=== PATIENT | female | born 1950 | race Caucasian/White ===

== ENCOUNTER → 2016-05-26 | Outpatient (CLI) | payer MEDICARE ==
[~2016-05-26] MED LIST: ASPI81TA85 PO; CIPR500T3 PO; COLA100C PO; DULO1CAP3 PO; FERR325T3 PO; GLYB5TA PO; IMIT100T PO; LISI10TA4 PO; MELA1CAP2 PO; METF500T4 PO; MOTR200T44 PO; NEUR300C PO; NORCOTAB PO; PERC5TAB6 PO; PROP40TA PO; SIMV20TA2 PO; TYLE1TAB5 PO; VITA-130 PO; ZANA4TAB PO
--- NOTE | 2016-05-26 13:24 | REP ---
CHEST X-RAY: TWO VIEWS. HISTORY: Shortness of breath. COMPARISON: Chest x-ray August 13, 2015. FINDINGS: The lungs are well inflated and clear. The pleural angles are sharp. Heart size is normal. Pulmonary vasculature is not increased. No significant bony abnormality is seen. IMPRESSION: No active disease. Signed by Delmer Ariza MD 05/26/2016 01:26 P
== END ==
LOC: M RAD 09:15
PROVIDERS: ATTEND Student in an Organized Health Care Education/Training Program
DX: R06.02 Shortness of breath (principal)

== ENCOUNTER → 2016-06-26 | Outpatient (REF) | payer MEDICARE, OTHER ==
[~2016-06-26] MED LIST changes: +FLOM5CAP PO; +LOSA25TA8 PO
[2016-06-26 13:03] LABS: FERRITIN 8 NG/ML (8-252); PERCENT SATURATION 8.4 % (13.2-37.4); TOTAL IRON BINDING CAPACITY 466 UG/DL (250-450)
== END ==
LOC: M LAB REF 12:30
PROVIDERS: ATTEND Internal Medicine Medical Oncology
DX: D64.9 Anemia, unspecified (principal)
CPT/HCPCS: 82728; 83550; 86038; 86140; G0463

== ENCOUNTER → 2016-06-27 | Outpatient (REF) | payer MEDICARE ==
[~2016-06-27] MED LIST changes: -FLOM5CAP PO; -LOSA25TA8 PO
== END ==
LOC: M SFHCPLAZ 09:28
PROVIDERS: ATTEND Student in an Organized Health Care Education/Training Program
DX: M54.9 Dorsalgia, unspecified (principal)

== ENCOUNTER → 2016-06-30 | Outpatient (CLI) | payer OTHER, MEDICARE ==
--- NOTE | 2016-07-04 01:48 | ECWPNPC ---
PATIENT NAME: SANTIAGO INGRAM : 1950 GENDER: FEMALE VISIT DATE: 06/30/2016 DISCHARGE DATE: 06/30/16 0946 VISIT LOCKED DATE TIME: PHYSICIAN: NONI MEDINA RESOURCE: NONI MEDINA REASON FOR APPOINTMENT 1. HANDS HISTORY OF PRESENT ILLNESS HISTORY OF PRESENT ILLNESS: PAIN THE PATIENT DESCRIBES THE PAIN... FALL RISK SCREENING: SCREENING :NO FALLS IN THE PAST YEAR TODAY'S VISIT: NOTES: FOLLOWUP - BILATERAL HANDS: RATES PAIN TODAY 4/10. HANDS ARE VERY STIFF AT WRIST AND FINGER JOINTS. VERY LIMITED IN ACTIVITIES WHICH REQUIRE THE USE OF THE HANDS. CURRENT MEDICATIONS TAKING JANUMET 50-1000 MG TABLET 1 TABLET WITH MEALS ORALLY TWICE A DAY TAKING GLIPIZIDE 5 MG TABLET 1 TABLET ORALLY BID TAKING FERROUS SULFATE 325 (65 FE) MG TABLET 1 TABLET ORALLY ONCE DAILY TAKING LIPITOR 40 MG TABLET 1 TABLET ORALLY ONCE A DAY TAKING LOSARTAN POTASSIUM 25 MG TABLET DIRECTED ORALLY DAILY TAKING PROPRANOLOL HCL 40 MG CAPSULE EXTENDED RELEASE 24 HOUR 1 CAPSULE ORALLY ONCE A DAY TAKING IMITREX 100 MG TABLET 1 TABLET ORALLY ONCE DAILY NEEDED FOR MIGRAINES TAKING GLUCOSE BLOOD ACCHUCHEK STRIP TEST STRIPS IN VITRO FSBS DAILY TAKING TYLENOL PM EXTRA STRENGTH 500-25 MG TABLET 1 TABLET AT BEDTIME NEEDED ORALLY ONCE A DAY TAKING GABAPENTIN 800 MG TABLET 1 TABLET ORALLY THREE TIMES A DAY TAKING CYMBALTA 60 MG CAPSULE DELAYED RELEASE PARTICLES 1 CAPSULE ORALLY ONCE A DAY TAKING PROAIR HFA 108 (90 BASE) MCG/ACT AEROSOL SOLUTION 2 PUFFS NEEDED INHALATION QID PRN NOT-TAKING DOCUSATE SODIUM 100 MG CAPSULE 1 CAPSULE NEEDED ORALLY ONCE A DAY NOT-TAKING FLUCONAZOLE 150 MG TABLET 1 TABLET ORALLY ONE TIME (MAY REPEAT IN 72 HOURS IF SYMPTOMS NOT RESOLVED ) NOT-TAKING VITAMIN C 500 MG TABLET CHEWABLE 1 TABLET ORALLY ONCE A DAY NOT-TAKING LIDOCAINE 5 % OINTMENT 1 APPLICATION TO AFFECTED AREA NEEDED EXTERNALLY THREE TIMES A DAY MEDICATION LIST REVIEWED AND RECONCILED WITH THE PATIENT PAST MEDICAL HISTORY DIABETES MELLITUS HYPERTENSION HYPERLIPIDEMIA DEPRESSION MIGRAINE HEADACHE, OCCASIONAL COMPLEX REGIONAL PAIN SYNDROME (CRPS) HX RENAL CALCULI WITH LITHOTRIPSY POSTMENOPAUSE HISTORY OF VITREOUS DETACHMENT DIFFICULTY WITH GENERAL ANESTHESIA BIAPICAL PLEURAL THICKENING - CHEST CT 08/2015 CHANO ON CPAP IRON DEFICIENCY ANEMIA HISTORY OF H PYLORI INFECTION HISTORY OF CARDIOMEGALY GERD ALLERGIES N.K.D.A. SOCIAL HISTORY GENERAL: TOBACCO USE ARE YOU A:NONSMOKER LEARNING BARRIERS / SPECIAL NEEDS ORIENTED TO PLAN OF CARE: PATIENT, PAIN MANAGEMENT PATIENT, ORIENTED TO PLAN OF CARE: PATIENT, PAIN MANAGEMENT PATIENT. NEW PATIENT PAIN DIARY TODAY'S VISITNOTES FROM 0-10, WHAT LEVEL IS YOUR PAIN TODAY?0 PAIN CLINIC PFS, CLERGY, PUBLIC HEALTH REFERRALS PFS REFERRAL NEEDED?NO CLERGY REFERRAL NEEDED?NO PUBLIC HEALTH REFERRAL NEEDED?NO WAS THE PROVIDER NOTIFIED OF ANY PERTINENT INFO?NO PFS REFERRAL NEEDED?NO CLERGY REFERRAL NEEDED?NO PUBLIC HEALTH REFERRAL NEEDED?NO WAS THE PROVIDER NOTIFIED OF ANY PERTINENT INFO?NO REVIEW OF SYSTEMS CONSTITUTIONAL: ANY CHANGE IN YOUR MEDICAL CONDITION? YES KIDNEY STONE, HAVING A CT SCAN TODAY FOR THIS. SEES DR. STONE . CHILLS NO . FEVER NO . INFECTION: DO YOU HAVE NEW INFECTIONS? NO . DO YOU HAVE HISTORY OF MRSA? NO . MUSCULOSKELETAL: ANY NEW PATTERNS OF PAIN OR NUMBNESS? NO . GASTROENTEROLOGY: ANY NEW CHANGE IN BOWEL CONTROL? NO . GENITOURINARY: ANY NEW CHANGE IN BLADDER CONTROL? NO . IS THERE A CHANCE YOU COULD BE ? NO . HEMATOLOGY/LYMPH: DO YOU TAKE ANY BLOOD THINNERS? (FOR EXAMPLE- COUMADIN, PLAVIX, AGGRENOX, PLATEL, PRADAXA, OR XARELTO) NO . WHEN WAS YOUR LAST DOSE? DATE: TIME: . NEUROLOGY: HAVE YOU FALLEN IN THE PAST 6 MONTHS? NO . ANY NEW EXTREMITY NUMBNESS OR WEAKNESS? NO . CARDIOLOGY: DO YOU HAVE A PACEMAKER OR DEFIBRILLATOR? NO . RESPIRATORY: HAVE YOU BEEN SICK IN THE PAST WEEK? NO . FEVER NO . FLU LIKE SYMPTOMS? NO . COUGH NO . INTEGUMENTARY: DO YOU HAVE ANY RASHES OR OPEN SORES? NO . ALLERGIC/IMMUNO: ARE YOU ALLERGIC TO SHELLFISH OR IV DYE? NO . ANY NEW ALLERGIES? NO . PSYCHIATRIC: DO YOU HAVE THOUGHTS OF HURTING YOURSELF OR SOMEONE ELSE? NO . ARE YOU ABUSED, NEGLECTED, OR IN AN UNSAFE ENVIRONMENT? NO . ENDOCRINOLOGY: ARE YOU DIABETIC? YES . OTHER: DO YOU NEED ANY PRESCRIPTIONS? NO . IF YES, PLEASE LIST: ____ . ANY NEW PROBLEMS WITH YOUR MEDICATIONS? NO . WHEN DID YOU LAST EAT? ____ . WHEN DID YOU LAST DRINK? ____ . WHAT DID YOU LAST DRINK? ____ . NAME OF PERSON DRIVING YOU HOME? ____ . DO YOU HAVE ANY OTHER QUESTIONS OR CONCERNS NO . REVIEWED BY: PROVIDER: NONI ARANDA . VITAL SIGNS WT 171.6 LBS, HT 66.5 IN, BMI 27.28 INDEX, BP 125/70 MM HG, HR 90 /MIN, RR 16 /MIN, TEMP 96.9 F, OXYGEN SAT % 97%, SAFE IN ENV? (Y/N) YES, NA INITIALS CT 09:01, REVIEWED BY: LAUREANO. EXAMINATION GENERAL EXAMINATION: PSYCHALERT , ORIENTED X 3 , APPROPRIATE MOOD AND AFFECT . LUNGS:CLEAR TO AUSCULTATION BILATERALLY. HEART:HEART RATE REGULAR. NO MURMURS HEARD. MUSCULOSKELETAL:MARKED REDUCTION IN ROM IN ALL JOINTS OF BOTH HANDS AND WRISTS. ENLARGEMENT OF PIP JOINTS RIGHT HAND GREATER THAN LEFT, AND DIP JOINT LEFT 1ST FINGER. ALLODYNIA AND HYPERSENSATIVITY TO LIGHT TOUCH BILATERALLY FROM WRISTS THROUGH FINGERTIPS. RED FLUSH TO BOTH HANDS WITH VARIES IN INTENSITY OVER A 20 MINUTE PERIOD. SKIN: PATCHY JULIA NOTED OVER DORSAL SURFACE OF RIGHT HAND, AND OVER THE PIP JOINTS, RIGHT HANDS . NEUROLOGIC EXAM:HYPERSENSATIVITY TO ANY LIGHT TOUCH OVER BOTH UPPER EXTREMITIES FROM FINGER TIPS TO ELBOWS.. ASSESSMENTS COMPLEX REGIONAL PAIN SYNDROME AFFECTING BOTH UPPER ARMS - G90.519 (PRIMARY) TREATMENT COMPLEX REGIONAL PAIN SYNDROME AFFECTING BOTH UPPER ARMS NOTES: CONTINUE EXERCISES AND STRETCHES TO BOTH HANDS, WRIST, WELL, UPPER ARMS. CONTINUE GABAPENTIN. CALL WHEN SCRIPTS DUE. PROCEDURES PN WORKMANS' COMP OPINION IN YOUR OPINION, WAS THE INCIDENT THAT THE PATIENT DESCRIBED THE COMPETENT MEDICAL CAUSE OF THIS INJURY/ILLNESS? YES ARE THE PATIENT'S COMPLAINTS CONSISTENT WITH HIS/HER HISTORY OF THE INJURY/ILLNESS? YES IS THE PATIENT'S HISTORY OF THE INJURY/ILLNESS CONSISTENT WITH YOUR OBJECTIVE FINDING? YES WHAT IS THE PERCENTAGE OF TEMPORARY IMPAIRMENT? TOTAL = 100% IS THE PATIENT WORKING? NO DOCTOR ON SITE: JANIE SHAHID MD PROCEDURE CODES FA211 ESTABILISHED PATIENT [facility] CHARGE DISPOSITION & COMMUNICATION FOLLOW UP 3 MONTHS (REASON: HANDS) ELECTRONICALLY SIGNED BY DANIEL MENDOZA ON 06/30/2016 AT 03:02 PM EST DISCLAIMER : THIS IS A VISIT SUMMARY EXTRACTED FROM THE [employer] CHART. IT IS NOT A COPY OF THE [employer] PROGRESS NOTE. BABATUNDE
== END ==
LOC: M PAIN 09:00
PROVIDERS: ATTEND Nurse Practitioner Family
DX: Z09 Encounter for follow-up examination after completed treatment for conditions other than malignant neoplasm (principal); G90.513 Complex regional pain syndrome I of upper limb, bilateral; N20.0 Calculus of kidney; M54.9 Dorsalgia, unspecified; E11.9 Type 2 diabetes mellitus without complications; I10 Essential (primary) hypertension; F32.9 Major depressive disorder, single episode, unspecified; G47.33 Obstructive sleep apnea (adult) (pediatric); D50.9 Iron deficiency anemia, unspecified; K21.9 Gastro-esophageal reflux disease without esophagitis; Z87.442 Personal history of urinary calculi; Z79.84 Long term (current) use of oral hypoglycemic drugs; Z79.899 Other long term (current) drug therapy
CPT/HCPCS: 74176; G0463

== ENCOUNTER → 2016-06-30 | Outpatient (CLI) | payer MEDICARE ==
--- NOTE | 2016-07-01 06:26 | REP ---
CT study of the abdomen and pelvis without IV or oral contrast: Renal stone protocol. History: Right-sided back pain. Comparison CT study: October 01, 2015. Findings: Preliminary web database developer radiograph shows an unremarkable bowel gas pattern. The lung bases are clear. There is no evidence of pleural effusion or upper abdominal ascites. The liver is normal in size but shows diffuse fatty infiltration. There is a focal low density in the periportal region of the liver centrally consistent with regional fatty infiltration. This is not new but is a little more prominent than on the October 01, 2015 prior study. Spleen is unremarkable. No adrenal lesion is seen on either side. No pancreatic abnormality is appreciated. There is some fatty involution of the pancreas. The gallbladder is small and contracted in appearance. There are two intrarenal calculi in the lower pole collecting system of the right kidney. These measure 6 and 4 mm in greatest diameter. No intrarenal calculus is noted on the left. No hydronephrosis is seen. No ureteral calculus is observed. No bladder calculus is seen. The uterus is surgically absent. The appendix has been removed as well by history. No abdominal wall defect is seen. Bone window settings show no bony destructive lesion. Impression: Two intrarenal calculi lower pole right kidney 6 and 4 mm in diameter. No hydronephrosis seen. Fatty infiltration of the liver is somewhat more prominent than on the 2015 prior study. No acute intra-abdominal abnormality. Signed by Delmer Ariza MD 07/01/2016 10:04 A
== END ==
LOC: M RAD 18:02
PROVIDERS: ATTEND Student in an Organized Health Care Education/Training Program
DX: N20.0 Calculus of kidney (principal); M54.9 Dorsalgia, unspecified

== ENCOUNTER → 2016-07-02 | Outpatient (CLI) | payer MEDICARE ==
--- NOTE | 2016-07-02 13:43 | REP ---
CT CHEST WITHOUT IV CONTRAST: CT chest is performed without IV contrast. Sagittal and coronal reconstruction images are performed. Comparison made with prior CT angiogram of the chest 09/17/2015. Sagittal and coronal reconstruction images are performed. There is mild biapical pleural and parenchymal thickening which is stable. Scattered interstitial fibrotic scarring is seen diffusely bilaterally to a mild extent. No new abnormal opacities are seen in either lung. There is no evidence of mediastinal, hilar, or chest wall lymphadenopathy. There is no pleural or pericardial effusion. The heart is normal in size as is the thoracic aorta. Visualized upper abdominal structures appear unremarkable. There are degenerative changes of the spine. IMPRESSION: No suspicious pulmonary nodule or adenopathy. Signed by Nj Shepherd MD 07/03/2016 04:37 P
== END ==
LOC: M RAD 11:32
PROVIDERS: ATTEND Student in an Organized Health Care Education/Training Program
DX: R93.8 Abnormal findings on diagnostic imaging of other specified body structures (principal)

== ENCOUNTER 2016-07-11 08:18 | Outpatient (CLI) | payer MEDICARE ==
[~2016-07-11] VITALS: Ht 154.9 cm; Wt 68.0 kg
[2016-07-11] MEDS ORDERED: IRON SUCROSE 100 MG in NS 100 ML IV ONE (09:00)
[2016-07-11] MEDS ORDERED: IRON SUCROSE 25 MG in NS 50 ML IV ONE (09:15)
[2016-07-11] MEDS ORDERED: IRON SUCROSE 200 MG in NS 200 ML IV ONE ×2 (10:00→11:00)
[2016-07-11] MEDS ORDERED: IRON SUCROSE 75 MG in NS 100 ML IV ONE (10:15)
[2016-07-11] MEDS ORDERED: FLOM5CAP PO (12:15)
[2016-07-11] MEDS ORDERED: LOSA25TA8 PO (12:15)
== END 2016-07-11 11:45 | disposition home or self-care (01) ==
LOC: M INFU 08:18
PROVIDERS: ATTEND Student in an Organized Health Care Education/Training Program
DX: D50.9 Iron deficiency anemia, unspecified (principal); Z79.899 Other long term (current) drug therapy; Z79.84 Long term (current) use of oral hypoglycemic drugs
CPT/HCPCS: 96365; 96366; J1756

== ENCOUNTER 2016-07-18 07:44 | Outpatient (CLI) | payer MEDICARE ==
[~2016-07-18] VITALS: Ht 156.2 cm; Wt 76.4 kg
[~2016-07-18 07:44] MED LIST changes: +FLOM5CAP PO; +LOSA25TA8 PO
[2016-07-18] MEDS ORDERED: IRON SUCROSE 200 MG in NS 200 ML IV ONE (09:00)
== END 2016-07-18 10:25 | disposition home or self-care (01) ==
LOC: M INFU 07:44
PROVIDERS: ATTEND Student in an Organized Health Care Education/Training Program
DX: D50.9 Iron deficiency anemia, unspecified (principal); Z79.899 Other long term (current) drug therapy
CPT/HCPCS: 96365; J1756

== ENCOUNTER → 2016-07-21 | Outpatient (REF) | payer MEDICARE ==
[2016-07-21 19:39] LABS: PERCENT SATURATION 13.3 % (13.2-37.4)
== END ==
LOC: M LAB REF 16:58
PROVIDERS: ATTEND Internal Medicine Medical Oncology
DX: D50.9 Iron deficiency anemia, unspecified (principal)

== ENCOUNTER 2016-07-25 11:37 | Outpatient (CLI) | payer MEDICARE ==
[~2016-07-25 11:37] MED LIST changes: -COLA100C PO; +COLA100C3 PO
[2016-07-25] MEDS ORDERED: IRON SUCROSE 200 MG in NS 200 ML IV ONE (12:00)
== END 2016-07-25 14:15 | disposition home or self-care (01) ==
LOC: M INFU 11:37
PROVIDERS: ATTEND Student in an Organized Health Care Education/Training Program
DX: D50.9 Iron deficiency anemia, unspecified (principal)
CPT/HCPCS: 96365; 96366; J1756

== ENCOUNTER → 2016-07-28 | Outpatient (CLI) | payer MEDICARE ==
[~2016-07-28] MED LIST changes: +COLA100C PO; -COLA100C3 PO; +MACR100C3 PO; +METF1000 PO; +ZOFR4TAB3 PO
--- NOTE | 2016-07-28 12:37 | REP ---
CT abdomen and pelvis without IV or bowel contrast: Comparison is 06/30/2016. The visualized lung estrada are unremarkable. The liver is diffusely mildly less dense than the spleen compatible with hepatosteatosis, this is unchanged. There is a focal zones of slightly more prominent decreased attenuation in the medial segment of the left lobe of the liver, unchanged from 06/30/2016, compatible with a focal zone of slightly more increased hepato steatosis. The gallbladder is collapsed and is not optimally identified. The pancreas and spleen are unremarkable and unchanged. The adrenals are unremarkable and unchanged. There are two right renal calculi. One of these two calculi has migrated into the right renal pelvis, however, is nonobstructive. There is no hydronephrosis. The right renal calculus is unchanged. There are no left renal calculi, there is no left hydronephrosis. The abdominal aorta, bowel and mesentery are unremarkable and unchanged. Pelvis: The the patient has an appendectomy and hysterectomy. The vaginal cuff and adnexa are unremarkable. There are phleboliths in the pelvis. There is no ascites or adenopathy. The pelvic bowel loops are unremarkable. Impression: The the patient has two known right renal calculi. One of these calculi has migrated to the right renal pelvis but is nonobstructive. The other right renal calculus is unchanged and nonobstructive. The patient has an appendectomy and hysterectomy. There is no bowel distension or obstruction. There are findings compatible with hepatosteatosis. Otherwise, negative CT of the abdomen and pelvis. Signed by Nj Benito MD 07/28/2016 12:28 P
== END ==
LOC: M RAD 11:02
PROVIDERS: ATTEND Student in an Organized Health Care Education/Training Program
DX: N20.0 Calculus of kidney (principal)

== ENCOUNTER 2016-07-29 12:01 | Emergency (ER) | payer MEDICARE ==
[~2016-07-29] VITALS: Ht 170.2 cm; Wt 77.1 kg
[~2016-07-29 12:01] MED LIST changes: -COLA100C PO; +COLA100C3 PO; -MACR100C3 PO; -METF1000 PO; -ZOFR4TAB3 PO
[2016-07-29] MEDS ORDERED: METF1000 PO (12:24)
[2016-07-29] MEDS ORDERED: LOSA25TA8 PO (12:26)
[2016-07-29] MEDS ORDERED: MORPHINE 4 MG/ML 1ML SYRINGE IV ONE (12:45)
[2016-07-29] MEDS ORDERED: ONDANSETRON 4MG/2ML VIAL (J2405) IV ONE (12:45)
[2016-07-29 13:17] LABS: MEAN CORPUSCULAR HEMOGLOBIN 29.6 pg (27.0-33.0); MEAN CORPUSCULAR HGB CONC 32.6 g/dl (32.0-36.5); MEAN CORPUSCULAR VOLUME 90.8 fl (80.0-96.0); RED CELL DISTRIBUTION WIDTH 13.8 % (11.5-14.5); WHITE BLOOD COUNT 6.6 K/mm3 (4.0-10.0)
[2016-07-29 13:35] LABS: ALKALINE PHOSPHATASE 80 U/L (45-117); ALT/SGPT 47 U/L (12-78); ANION GAP 6 MEQ/L (8-16); AST/SGOT 29 U/L (15-37); BLOOD UREA NITROGEN 10 MG/DL (7-18); CALCIUM LEVEL 9.2 MG/DL (8.8-10.2); CARBON DIOXIDE LEVEL 28 MEQ/L (21-32); CHLORIDE LEVEL 105 MEQ/L (98-107); CREATININE FOR GFR 0.63 MG/DL (0.55-1.02); GLOMERULAR FILTRATION RATE > 60.0 (>45); GLUCOSE, FASTING 80 MG/DL (80-110); POTASSIUM SERUM 3.8 MEQ/L (3.5-5.1); SODIUM LEVEL 139 MEQ/L (136-145)
[2016-07-29 13:36] LABS: ALBUMIN 4.4 GM/DL (3.2-5.2); ALBUMIN/GLOBULIN RATIO 1.63 (1.00-1.93); BILIRUBIN,TOTAL 0.6 MG/DL (0.2-1.0); TOTAL PROTEIN 7.1 GM/DL (6.4-8.2)
[2016-07-29] MEDS ORDERED: NS 500 ML IV ONE (14:15)
--- NOTE | 2016-07-29 15:39 | REP ---
RENAL AND BLADDER ULTRASOUND: Real-time sonographic evaluation of the kidneys is performed. The kidneys are normal in size and echotexture, the right kidney measuring 10.8 x 6.1 x 4.3 cm and left kidney 12.0 x 5.2 x 5.8 cm. There is no hydronephrosis bilaterally. 1 cm calculus is seen in the right renal pelvis and there is an adjacent 6 mm calculus in the lower pole of the right renal collecting system. A small amount of debris is seen in a mildly distended urinary bladder. There are bilateral ureteral jets noted with Doppler color evaluation. IMPRESSION: There is a 1 cm calculus in the right renal pelvis and a 6 mm calculus in the lower pole of the right kidney. No hydronephrosis. Bilateral ureteral jets. Signed by Nj Shepherd MD 07/29/2016 04:42 P
[2016-07-29] MEDS ORDERED: ZOFR4TAB3 PO (15:59)
[2016-07-29] MEDS ORDERED: FLOM5CAP PO (15:59)
[2016-07-29] MEDS ORDERED: NORCOTAB PO (15:59)
[2016-07-29] MEDS ORDERED: TAMSULOSIN 0.4 MG CAP PO ONE (16:00)
[2016-07-29 16:04] VITALS: BP 148/69
[2016-07-29] MEDS ORDERED: MACR100C3 PO (16:04)
== END 2016-07-29 16:07 | disposition home or self-care (01) ==
LOC: M ED 13:32
DX: N20.2 Calculus of kidney with calculus of ureter (principal)
CPT/HCPCS: 36415; 76775; 80053; 81001; 83690; 85027; 87086; 96361; 96374; 96375; 99283; J2405

== ENCOUNTER → 2016-08-13 | Outpatient (REF) | payer MEDICARE ==
[~2016-08-13] MED LIST changes: +ATOR40TA PO; +GLIP5TAB8 PO; +GLYB5TA GT; +MACR100C3 PO; +MELA0.02 PO; +MELA10TA4 PO; +METF1000 PO; +ZOFR4TAB3 PO
[2016-08-13 14:28] LABS: INR 0.93
== END ==
LOC: M LABSMT 10:52
PROVIDERS: ATTEND Urology
DX: Z01.818 Encounter for other preprocedural examination (principal); H25.11 Age-related nuclear cataract, right eye; N20.0 Calculus of kidney; E11.49 Type 2 diabetes mellitus with other diabetic neurological complication; E78.5 Hyperlipidemia, unspecified; G43.709 Chronic migraine without aura, not intractable, without status migrainosus; Z79.84 Long term (current) use of oral hypoglycemic drugs; Z79.899 Other long term (current) drug therapy
CPT/HCPCS: 36415; 85610; 85730; G0463

== ENCOUNTER → 2016-08-18 | Day surgery (SDC) | payer MEDICARE ==
[~2016-08-18] VITALS: Ht 170.2 cm; Wt 77.1 kg
[~2016-08-18] MED LIST changes: +ACETAMINOPHEN 325 MG TAB PO PRN; +AcetaZOLAMIDE 500 MG ER CAP PO ONE; +BSS with VANC/TOB/EPI for EYE CASES IR ONE; +CYCLOPENTOLATE 2% OPHTH SOLN As Ordered ONE; +CYCLOPENTOLATE 2% OPHTH SOLN XX ONE; +D5W/0.2% SODIUM CHLORIDE 250 ML IV SCH; +HEALON DUET (HEALON 10MG/ML 0.55ML & HEALON ENDOCOAT 30MG/ML 0.85ML) As Ordered ONE; +KETOROLAC 0.5% OPHTH SOLN OD ONE; +LIDOCAINE 1% SDV 5 ML VIAL As Ordered ONE; +LIDOCAINE 4% INJ 5 ML AMP OU ONE; +LIDOCAINE W/EPINEPHRINE 1% 20ML VIAL As Ordered ONE; +MIDAZOLAM INJ 2 MG/2 ML VIAL (J2250) As Ordered ONE; +MOXIFLOXACIN IN BSS 0.25MG/0.25ML INTRACAMERAL INJ (OR EYE ONLY)(J2280) As Ordered ONE; +OFLOXACIN 0.3 % (OCUFLOX) OPTH SOL 5ML As Ordered ONE; +OFLOXACIN 0.3 % (OCUFLOX) OPTH SOL 5ML XX ONE; +PHENYLEPHRINE 2.5% OPHTH SOL 2ML As Ordered ONE; +PHENYLEPHRINE 2.5% OPHTH SOL 2ML XX ONE; +POVIDONE-IODINE 5% OPHTH PREP SOL 30ML As Ordered ONE; +PROPARACAINE 0.5% OPHTH SOL 15ML OD PRN; +TRIAMCINOLONE PRES FR 40 MG/ML 1ML(TRIESENCE)(OR EYE ONLY)(J3300 PER 1MG) As Ordered ONE; +TRIMETHOBENZAMIDE 300 MG CAP PO PRN; +TROPICAMIDE 1% OPHTH SOLN 2 ML As Ordered ONE; +TROPICAMIDE 1% OPHTH SOLN 2 ML XX ONE; +fentaNYL 100 MCG/2 ML INJECTION (J3010) As Ordered ONE
[2016-08-18 08:40] VITALS: BP 131/70
== END | disposition home or self-care (01) ==
LOC: M SDC 05:59
PROVIDERS: ATTEND Ophthalmology
DX: H25.11 Age-related nuclear cataract, right eye (principal); N20.0 Calculus of kidney; E11.9 Type 2 diabetes mellitus without complications; I10 Essential (primary) hypertension; E78.5 Hyperlipidemia, unspecified; F32.9 Major depressive disorder, single episode, unspecified; G43.909 Migraine, unspecified, not intractable, without status migrainosus; G90.50 Complex regional pain syndrome I, unspecified; G47.33 Obstructive sleep apnea (adult) (pediatric); T88.59XD Other complications of anesthesia, subsequent encounter; D50.9 Iron deficiency anemia, unspecified; K21.9 Gastro-esophageal reflux disease without esophagitis; I51.7 Cardiomegaly; R06.09 Other forms of dyspnea; R29.898 Other symptoms and signs involving the musculoskeletal system; J98.4 Other disorders of lung; Z79.899 Other long term (current) drug therapy; Z79.84 Long term (current) use of oral hypoglycemic drugs; Z90.710 Acquired absence of both cervix and uterus; Z78.0 Asymptomatic menopausal state; Z87.19 Personal history of other diseases of the digestive system
CPT/HCPCS: 66984; J2250; J2280; J3010; J3300; V2632

== ENCOUNTER → 2016-08-21 | Day surgery (SDC) | payer MEDICARE ==
[~2016-08-21] VITALS: Ht 168.9 cm; Wt 78.7 kg
[~2016-08-21] MED LIST changes: -ACETAMINOPHEN 325 MG TAB PO PRN; -AcetaZOLAMIDE 500 MG ER CAP PO ONE; -BSS with VANC/TOB/EPI for EYE CASES IR ONE; -CYCLOPENTOLATE 2% OPHTH SOLN As Ordered ONE; -CYCLOPENTOLATE 2% OPHTH SOLN XX ONE; -D5W/0.2% SODIUM CHLORIDE 250 ML IV SCH; -HEALON DUET (HEALON 10MG/ML 0.55ML & HEALON ENDOCOAT 30MG/ML 0.85ML) As Ordered ONE; -KETOROLAC 0.5% OPHTH SOLN OD ONE; -LIDOCAINE 1% SDV 5 ML VIAL As Ordered ONE; +LIDOCAINE 2% INJ 100 MG/5 ML SDV (FOR ANES.) As Ordered ONE; -LIDOCAINE 4% INJ 5 ML AMP OU ONE; -LIDOCAINE W/EPINEPHRINE 1% 20ML VIAL As Ordered ONE; +LR 1,000 ML IV SCH; -MOXIFLOXACIN IN BSS 0.25MG/0.25ML INTRACAMERAL INJ (OR EYE ONLY)(J2280) As Ordered ONE; -OFLOXACIN 0.3 % (OCUFLOX) OPTH SOL 5ML As Ordered ONE; -OFLOXACIN 0.3 % (OCUFLOX) OPTH SOL 5ML XX ONE; -PHENYLEPHRINE 2.5% OPHTH SOL 2ML As Ordered ONE; -PHENYLEPHRINE 2.5% OPHTH SOL 2ML XX ONE; -POVIDONE-IODINE 5% OPHTH PREP SOL 30ML As Ordered ONE; -PROPARACAINE 0.5% OPHTH SOL 15ML OD PRN; +PROPOFOL 200 MG/20 ML VIAL As Ordered ONE; -TRIAMCINOLONE PRES FR 40 MG/ML 1ML(TRIESENCE)(OR EYE ONLY)(J3300 PER 1MG) As Ordered ONE; -TRIMETHOBENZAMIDE 300 MG CAP PO PRN; -TROPICAMIDE 1% OPHTH SOLN 2 ML As Ordered ONE; -TROPICAMIDE 1% OPHTH SOLN 2 ML XX ONE
[2016-08-21 09:45] VITALS: BP 144/75
--- NOTE | 2016-08-21 09:53 | REP ---
KUB ABDOMEN AND PELVIS: KUB film of the abdomen and pelvis is performed and compared to a prior study of 07/24/2015. The bowel gas pattern is normal with no evidence of bowel obstruction. Phleboliths are seen in the pelvis. Fecal material and bowel gas overlie the renal shadows limiting evaluation for underlying calculi. The previously noted calculus in the lower pole of the right kidney may be vaguely visualized, but again evaluation is limited due to overlying fecal material. There are mild degenerative changes of the spine. Signed by Nj Shepherd MD 08/21/2016 04:48 P
--- NOTE | 2016-08-21 16:57 | RO ---
DATE OF PROCEDURE: 08/21/2016 PREPROCEDURE DIAGNOSIS: Right kidney stones. POSTPROCEDURE DIAGNOSIS: Right kidney stones. PROCEDURE: Right extracorporeal shock wave lithotripsy. SURGEON: Dr. Lukasz Bangura HEALTH RESEARCHER: None ANESTHESIA: MAC. OPERATIVE INDICATIONS: This is a 65-year-old female found to have two right- sided kidney stones measuring up to 7 mm in size. It was recommended she be brought to the operating room today for the above listed procedure. DESCRIPTION OF PROCEDURE: The patient was brought to the operating room and MAC anesthesia was administered. Prophylactic antibiotics were infused. She was then placed in the lithotomy position in preparation for a right-sided extracorporeal lithotripsy. Fluoroscopy and ultrasonography were utilized to monitor stone position and fragmentation throughout the procedure. At this point, shock waves were then delivered to the right-sided kidney stone ungated. There were no arrhythmias. The stones did appear to fragment well. After 2500 shocks, the procedure was concluded. The patient was awakened from anesthesia and transported to the recovery room in stable condition. ESTIMATED BLOOD LOSS: 0 mL. COMPLICATIONS: None. SPECIMENS: None. PLAN: The patient will followup in the clinic in a few weeks with imaging prior to assess for residual stone burden. BABATUNDE
== END | disposition home or self-care (01) ==
LOC: M SDC 06:09
PROVIDERS: ATTEND Urology
DX: N20.0 Calculus of kidney (principal); E11.9 Type 2 diabetes mellitus without complications; I10 Essential (primary) hypertension; E78.5 Hyperlipidemia, unspecified; F32.9 Major depressive disorder, single episode, unspecified; G43.909 Migraine, unspecified, not intractable, without status migrainosus; G90.50 Complex regional pain syndrome I, unspecified; T88.59XD Other complications of anesthesia, subsequent encounter; G47.33 Obstructive sleep apnea (adult) (pediatric); D50.9 Iron deficiency anemia, unspecified; K21.9 Gastro-esophageal reflux disease without esophagitis; I51.7 Cardiomegaly; R29.898 Other symptoms and signs involving the musculoskeletal system; R06.09 Other forms of dyspnea; J84.10 Pulmonary fibrosis, unspecified; H25.11 Age-related nuclear cataract, right eye; Z79.899 Other long term (current) drug therapy; Z79.84 Long term (current) use of oral hypoglycemic drugs; Z78.0 Asymptomatic menopausal state; Z90.710 Acquired absence of both cervix and uterus
CPT/HCPCS: 50590; 74000; J0690; J2250; J3010

== ENCOUNTER → 2016-09-03 | Outpatient (CLI) | payer MEDICARE ==
[~2016-09-03] MED LIST changes: -LIDOCAINE 2% INJ 100 MG/5 ML SDV (FOR ANES.) As Ordered ONE; -LR 1,000 ML IV SCH; -MIDAZOLAM INJ 2 MG/2 ML VIAL (J2250) As Ordered ONE; -PROPOFOL 200 MG/20 ML VIAL As Ordered ONE; -fentaNYL 100 MCG/2 ML INJECTION (J3010) As Ordered ONE
== END ==
LOC: M LAB 12:35
PROVIDERS: ATTEND Internal Medicine Gastroenterology
DX: D50.9 Iron deficiency anemia, unspecified (principal)

== ENCOUNTER → 2016-09-11 | Outpatient (CLI) | payer MEDICARE ==
--- NOTE | 2016-09-11 10:58 | REP ---
Clinical: Nephrolithiasis. Technique: Single supine view of the abdomen and pelvis. Comparison: 08/21/2016. Findings: 4.5 mm calcification overlies the left kidney. Further evaluation of the urinary tract system is limited due to overlying bowel gas and technique. Moderate fecal stasis suggested. No acute obstruction or perforation. Calcifications in the pelvis likely represent phleboliths and possibly bladder stones versus calcified colonic diverticula given the presumed mobility. Skeletal structures demonstrate age-related changes. Impression: Possible 4.5 mm left renal calculus. Further evaluation of the urinary tract system is limited. Signed by Javon Aleman MD 09/11/2016 10:50 A
== END ==
LOC: M SMT 10:34
PROVIDERS: ATTEND Urology
DX: N20.0 Calculus of kidney (principal)

== ENCOUNTER → 2016-09-15 | Day surgery (SDC) | payer MEDICARE ==
[~2016-09-15] VITALS: Ht 168.9 cm; Wt 78.7 kg
[~2016-09-15] MED LIST changes: +ACETAMINOPHEN 325 MG TAB PO PRN; +ACETYLCHOLINE OPHTH SOLN 1% 2ML (MIOCHOL-E) As Ordered ONE; +AcetaZOLAMIDE 500 MG ER CAP PO ONE; +BSS with VANC/TOB/EPI for EYE CASES IR ONE; +CEFUROXIME 1MG/0.1ML INTRACAMERAL INJ As Ordered ONE; +CYCLOPENTOLATE 2% OPHTH SOLN 2ML BTL OS ONE; +D5W/0.2% SODIUM CHLORIDE 250 ML IV ONE; +HEALON DUET (HEALON 10MG/ML 0.55ML & HEALON ENDOCOAT 30MG/ML 0.85ML) As Ordered ONE; +KETOROLAC 0.5% OPHTH SOLN OS ONE; +LIDOCAINE 1% SDV 5 ML VIAL As Ordered ONE; +LIDOCAINE 4% INJ 5 ML AMP OU ONE; +MIDAZOLAM INJ 2 MG/2 ML VIAL (J2250) As Ordered ONE; +MOXIFLOXACIN IN BSS 0.25MG/0.25ML INTRACAMERAL INJ (OR EYE ONLY)(J2280) As Ordered ONE; +OFLOXACIN 0.3 % (OCUFLOX) OPTH SOL 5ML OS ONE; +PHENYLEPHRINE 2.5% OPHTH SOL 2ML OS ONE; +POVIDONE-IODINE 5% OPHTH PREP SOL 30ML As Ordered ONE; +PROPARACAINE 0.5% OPHTH SOL 15ML OS PRN; +TRIAMCINOLONE PRES FR 40 MG/ML 1ML(TRIESENCE)(OR EYE ONLY)(J3300 PER 1MG) As Ordered ONE; +TRIMETHOBENZAMIDE 300 MG CAP PO PRN; +TROPICAMIDE 1% OPHTH SOLN 2ML OS ONE; +fentaNYL 100 MCG/2 ML INJECTION (J3010) As Ordered ONE
[2016-09-15 09:45] VITALS: BP 123/58
== END | disposition home or self-care (01) ==
LOC: M SDC 06:24
PROVIDERS: ATTEND Ophthalmology
DX: H26.9 Unspecified cataract (principal); E11.9 Type 2 diabetes mellitus without complications; I11.9 Hypertensive heart disease without heart failure; I51.7 Cardiomegaly; E78.5 Hyperlipidemia, unspecified; G43.909 Migraine, unspecified, not intractable, without status migrainosus; F32.9 Major depressive disorder, single episode, unspecified; G90.50 Complex regional pain syndrome I, unspecified; G47.33 Obstructive sleep apnea (adult) (pediatric); D50.9 Iron deficiency anemia, unspecified; K21.9 Gastro-esophageal reflux disease without esophagitis; Z79.899 Other long term (current) drug therapy; Z79.84 Long term (current) use of oral hypoglycemic drugs
CPT/HCPCS: 66984; J2250; J2280; J3010; J3300; V2632

== ENCOUNTER → 2016-09-23 | Outpatient (REF) | payer MEDICARE ==
[~2016-09-23] MED LIST changes: -ACETAMINOPHEN 325 MG TAB PO PRN; -ACETYLCHOLINE OPHTH SOLN 1% 2ML (MIOCHOL-E) As Ordered ONE; -AcetaZOLAMIDE 500 MG ER CAP PO ONE; -BSS with VANC/TOB/EPI for EYE CASES IR ONE; -CEFUROXIME 1MG/0.1ML INTRACAMERAL INJ As Ordered ONE; -CYCLOPENTOLATE 2% OPHTH SOLN 2ML BTL OS ONE; -D5W/0.2% SODIUM CHLORIDE 250 ML IV ONE; -HEALON DUET (HEALON 10MG/ML 0.55ML & HEALON ENDOCOAT 30MG/ML 0.85ML) As Ordered ONE; +JANU100T PO; -KETOROLAC 0.5% OPHTH SOLN OS ONE; -LIDOCAINE 1% SDV 5 ML VIAL As Ordered ONE; -LIDOCAINE 4% INJ 5 ML AMP OU ONE; -MIDAZOLAM INJ 2 MG/2 ML VIAL (J2250) As Ordered ONE; -MOXIFLOXACIN IN BSS 0.25MG/0.25ML INTRACAMERAL INJ (OR EYE ONLY)(J2280) As Ordered ONE; -OFLOXACIN 0.3 % (OCUFLOX) OPTH SOL 5ML OS ONE; -PHENYLEPHRINE 2.5% OPHTH SOL 2ML OS ONE; -POVIDONE-IODINE 5% OPHTH PREP SOL 30ML As Ordered ONE; -PROPARACAINE 0.5% OPHTH SOL 15ML OS PRN; -TRIAMCINOLONE PRES FR 40 MG/ML 1ML(TRIESENCE)(OR EYE ONLY)(J3300 PER 1MG) As Ordered ONE; -TRIMETHOBENZAMIDE 300 MG CAP PO PRN; -TROPICAMIDE 1% OPHTH SOLN 2ML OS ONE; -fentaNYL 100 MCG/2 ML INJECTION (J3010) As Ordered ONE
[2016-09-23 18:39] LABS: PERCENT SATURATION 22.6 % (13.2-37.4)
== END ==
LOC: M LAB REF 16:47
PROVIDERS: ATTEND Internal Medicine Medical Oncology
DX: D50.9 Iron deficiency anemia, unspecified (principal)

== ENCOUNTER → 2016-09-30 | Outpatient (CLI) | payer OTHER, MEDICARE ==
--- NOTE | 2016-10-17 01:46 | ECWPNPC ---
PATIENT NAME: SANTIAGO INGRAM : 1950 GENDER: FEMALE VISIT DATE: 09/30/2016 DISCHARGE DATE: 09/30/16 1001 VISIT LOCKED DATE TIME: PHYSICIAN: NONI MEDINA RESOURCE: NONI MEDINA REASON FOR APPOINTMENT 1. WC HANDS HISTORY OF PRESENT ILLNESS HISTORY OF PRESENT ILLNESS: PAIN THE PATIENT DESCRIBES THE PAIN... FALL RISK SCREENING: SCREENING :NO FALLS IN THE PAST YEAR TODAY'S VISIT: NOTES: WORKERS COMP FOLLOWUP FOR BILATERAL HAND PAIN. RATES PAIN LEVEL TODAY 4/10. DESCRIBES PAIN CONSTANT, ACHING , TENDER AND THROBBING. NOTES PAIN AREA IS FROM FINGERTIPS TO MIDWAY UP THE UPPER ARM BILATERALLY. NOTES THAT IT IS VARY HARD TO GRASP OBJECT AND SHE HAS VERY POOR COORDINATION. IS HAVING TROUBLE SWALLOWING GABAPENTIN WITH NEW COATING. CURRENT MEDICATIONS TAKING LOSARTAN POTASSIUM 25 MG TABLET DIRECTED ORALLY DAILY TAKING FERROUS SULFATE 325 (65 FE) MG TABLET 1 TABLET ORALLY ONCE DAILY TAKING LIPITOR 40 MG TABLET 1 TABLET ORALLY ONCE A DAY TAKING PROPRANOLOL HCL 40 MG CAPSULE EXTENDED RELEASE 24 HOUR 1 CAPSULE ORALLY ONCE A DAY TAKING IMITREX 100 MG TABLET 1 TABLET ORALLY ONCE DAILY NEEDED FOR MIGRAINES TAKING GLUCOSE BLOOD ACCHUCHEK STRIP TEST STRIPS IN VITRO FSBS DAILY TAKING TYLENOL PM EXTRA STRENGTH 500-25 MG TABLET 1 TABLET AT BEDTIME NEEDED ORALLY ONCE A DAY TAKING CYMBALTA 60 MG CAPSULE DELAYED RELEASE PARTICLES 1 CAPSULE ORALLY ONCE A DAY TAKING METFORMIN HCL 1000 MG TABLET 1 TABLET WITH MEALS ORALLY TWICE A DAY TAKING JANUVIA 100 MG TABLET 1 TABLET ORALLY ONCE A DAY TAKING GABAPENTIN 800 MG TABLET 1 TABLET ORALLY THREE TIMES A DAY TAKING GLIPIZIDE 5 MG TABLET 1 TABLET ORALLY BID TAKING MELATONIN 10 MG TABLET ORALLY BEFORE BEDTIME NOT-TAKING ONGLYZA 5 MG TABLET 1 TABLET ORALLY ONCE A DAY NOT-TAKING PROAIR HFA 108 (90 BASE) MCG/ACT AEROSOL SOLUTION 2 PUFFS NEEDED INHALATION QID PRN NOT-TAKING PERCOCET 5-325 MG TABLET 1 TABLET NEEDED ORALLY EVERY 6 HRS NOT-TAKING TRULICITY 0.75 MG/0.5ML SOLUTION PEN-INJECTOR 0.5 ML SUBCUTANEOUS ONCE A WEEK NOT-TAKING VENOFER 20 MG/ML SOLUTION DIRECTED INTRAVENOUS ONCE MEDICATION LIST REVIEWED AND RECONCILED WITH THE PATIENT PAST MEDICAL HISTORY DIABETES MELLITUS HYPERTENSION HYPERLIPIDEMIA DEPRESSION MIGRAINE HEADACHE, OCCASIONAL COMPLEX REGIONAL PAIN SYNDROME (CRPS) HX RENAL CALCULI WITH LITHOTRIPSY POSTMENOPAUSE HISTORY OF VITREOUS DETACHMENT DIFFICULTY WITH GENERAL ANESTHESIA BIAPICAL PLEURAL THICKENING - CHEST CT 08/2015 CHANO ON CPAP IRON DEFICIENCY ANEMIA HISTORY OF H PYLORI INFECTION HISTORY OF CARDIOMEGALY GERD REFUSED PNA VACCINE JANUARY 2016 ALLERGIES N.K.D.A. REVIEW OF SYSTEMS REVIEWED BY: PROVIDER: . CONSTITUTIONAL: ANY CHANGE IN YOUR MEDICAL CONDITION? YES, CATARACT SURGERY IN THE LAST MONTH BOTH EYES. KIDNEY STONE SURGERY IN THE LAST MONTH. TESTS CONTINUE TO DETERMINE CAUSE OF ANEMIA. . CHILLS NO . FEVER NO . INFECTION: DO YOU HAVE NEW INFECTIONS? NO . DO YOU HAVE HISTORY OF MRSA? NO . MUSCULOSKELETAL: ANY NEW PATTERNS OF PAIN OR NUMBNESS? NO . GASTROENTEROLOGY: GENERAL BEING SCHEDULED FOR VIDEO ENDOSCOPY FOR ANEMIA. HAS HAD 3 IRON INFUSIONS. . ANY NEW CHANGE IN BOWEL CONTROL? NO . GENITOURINARY: ANY NEW CHANGE IN BLADDER CONTROL? NO . IS THERE A CHANCE YOU COULD BE ? NO . HEMATOLOGY/LYMPH: DO YOU TAKE ANY BLOOD THINNERS? (FOR EXAMPLE- COUMADIN, PLAVIX, AGGRENOX, PLATEL, PRADAXA, OR XARELTO) NO . WHEN WAS YOUR LAST DOSE? DATE: TIME: . NEUROLOGY: HAVE YOU FALLEN IN THE PAST 6 MONTHS? NO . ANY NEW EXTREMITY NUMBNESS OR WEAKNESS? NO . CARDIOLOGY: DO YOU HAVE A PACEMAKER OR DEFIBRILLATOR? NO . RESPIRATORY: HAVE YOU BEEN SICK IN THE PAST WEEK? NO . FEVER NO . FLU LIKE SYMPTOMS? NO . COUGH NO . INTEGUMENTARY: DO YOU HAVE ANY RASHES OR OPEN SORES? NO . ALLERGIC/IMMUNO: ARE YOU ALLERGIC TO SHELLFISH OR IV DYE? NO . ANY NEW ALLERGIES? NO . PSYCHIATRIC: DO YOU HAVE THOUGHTS OF HURTING YOURSELF OR SOMEONE ELSE? NO . ARE YOU ABUSED, NEGLECTED, OR IN AN UNSAFE ENVIRONMENT? NO . ENDOCRINOLOGY: ARE YOU DIABETIC? YES - JUST STARTED ON JANUVIA . OTHER: DO YOU NEED ANY PRESCRIPTIONS? NO . IF YES, PLEASE LIST: ____ . ANY NEW PROBLEMS WITH YOUR MEDICATIONS? NO . WHEN DID YOU LAST EAT? ____ . WHEN DID YOU LAST DRINK? ____ . WHAT DID YOU LAST DRINK? ____ . NAME OF PERSON DRIVING YOU HOME? ____ . DO YOU HAVE ANY OTHER QUESTIONS OR CONCERNS NO . VITAL SIGNS WT 173.4 LBS, HT 66.5 IN, BMI 27.57 INDEX, BP 134/67 MM HG, HR 70 /MIN, RR 16 /MIN, TEMP 96.9 F, OXYGEN SAT % 95%, NA INITIALS MT 09:31, REVIEWED BY: EH. EXAMINATION GENERAL EXAMINATION: PSYCHALERT , ORIENTED X 3 , APPROPRIATE MOOD AND AFFECT , APPEARS UNCOMFORTABLE. LUNGS:DECREASED BREATH SOUNDS WITH SOME CRACKLES RIGHT LOWER LOBE. HEART:1/6 SYSTOLIC MURMUR HEARD ONLY WITH LEANING FORWARD., HEART RATE REGULAR. MUSCULOSKELETAL:ALLODYNIA TO ANY LIGHT TOUCH OR AIR MOVEMENT OVER HANDS, WRISTS FOREARMS. HANDS EDEMAPTOUS. VERY POOR RANGE OF MOTION WITH FINGER FLEXION/EXTENSION, AND WRIST FLEXION/EXTENSION. PHARMACY PICKING TECH STRENGTH POOR. DUSKY COLORATION TO BOTH HANDS WITH WAXES AND WANES IN INTENSITY.. NEUROLOGIC EXAM:HYPERSENSATIVITY TO ANY LIGHT TOUCH OVER THE PALMAR AND DORSAL SURFACES OF THE HANDS. 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 EXERCISE ALL JOINTS BOTH HANDS DAILY. OTHERS NOTES: CONTINUE CURRENT MEDS. FOLLOW UP WITH DR GUNTER. PROCEDURES PN WORKMANS' COMP OPINION IN YOUR OPINION, WAS THE INCIDENT THAT THE PATIENT DESCRIBED THE COMPETENT MEDICAL CAUSE OF THIS INJURY/ILLNESS? YES ARE THE PATIENT'S COMPLAINTS CONSISTENT WITH HIS/HER HISTORY OF THE INJURY/ILLNESS? YES IS THE PATIENT'S HISTORY OF THE INJURY/ILLNESS CONSISTENT WITH YOUR OBJECTIVE FINDING? YES WHAT IS THE PERCENTAGE OF TEMPORARY IMPAIRMENT? TOTAL = 100% IS THE PATIENT WORKING? NO DOCTOR ON SITE: JANIE SHAHID MD PROCEDURE CODES FA211 ESTABILISHED PATIENT [facility] CHARGE DISPOSITION & COMMUNICATION FOLLOW UP 3 MONTHS (REASON: UPPER EXTREMITY PAIN) ELECTRONICALLY SIGNED BY DANIEL MENDOZA ON 10/16/2016 AT 02:35 PM EDT DISCLAIMER : THIS IS A VISIT SUMMARY EXTRACTED FROM THE [employer] CHART. IT IS NOT A COPY OF THE [employer] PROGRESS NOTE. BABATUNDE
== END ==
LOC: M PAIN 09:00
PROVIDERS: ATTEND Nurse Practitioner Family
DX: M79.2 Neuralgia and neuritis, unspecified (principal); Z79.84 Long term (current) use of oral hypoglycemic drugs; Z79.899 Other long term (current) drug therapy; D50.9 Iron deficiency anemia, unspecified; E11.49 Type 2 diabetes mellitus with other diabetic neurological complication; I10 Essential (primary) hypertension; G43.709 Chronic migraine without aura, not intractable, without status migrainosus; E78.5 Hyperlipidemia, unspecified; K21.9 Gastro-esophageal reflux disease without esophagitis

== ENCOUNTER → 2016-10-01 | Outpatient (CLI) | payer MEDICARE ==
[2016-10-01 09:50] LABS: MEAN CORPUSCULAR HEMOGLOBIN 30.9 pg (27.0-33.0); MEAN CORPUSCULAR HGB CONC 32.9 g/dl (32.0-36.5); MEAN CORPUSCULAR VOLUME 93.9 fl (80.0-96.0); RED CELL DISTRIBUTION WIDTH 13.5 % (11.5-14.5); WHITE BLOOD COUNT 6.2 K/mm3 (4.0-10.0)
[2016-10-01 10:17] LABS: PERCENT SATURATION 21.2 % (13.2-37.4)
== END ==
LOC: M LAB 09:09
PROVIDERS: ATTEND Student in an Organized Health Care Education/Training Program
DX: D50.9 Iron deficiency anemia, unspecified (principal)

== ENCOUNTER → 2016-10-06 | Outpatient (CLI) | payer MEDICARE ==
[~2016-10-06] MED LIST changes: +E-Z-PAQUE 96% w/w SUSP 176GM BTL As Ordered ONE
--- NOTE | 2016-10-06 17:27 | REP ---
Small bowel follow-through The procedure was performed under the direct supervision of Dr. Shepherd. The images were reviewed with Dr. Shepherd. The hereditary cancer program coordinator film shows no organomegaly or pathological masses. The intestinal gas pattern is nonspecific. Liquid barium was administered and the barium column was followed through the small bowel to the level of the terminal ileum. Small bowel transit time is approximately 1 hour . During fluoroscopy gentle palpation shows all loops are freely movable and pliable. There are no fixed or angulated loops. The small bowel mucosal pattern is normal in course and caliber. There is no transition to suggest a partial small bowel obstruction. Spot filming of the terminal ileum shows it to be unremarkable. Impression: Small bowel follow-through examination within normal limits. 1 minute and 16 seconds of fluoro time was utilized for this procedure. Reviewed by GEORGE Irizarry 10/06/2016 04:51 PSigned by Nj Shepherd MD 10/06/2016 05:15 P
== END ==
LOC: M RAD 07:49
PROVIDERS: ATTEND Internal Medicine Gastroenterology
DX: D50.9 Iron deficiency anemia, unspecified (principal)

== ENCOUNTER → 2016-10-09 | Outpatient (CLI) | payer MEDICARE ==
[~2016-10-09] VITALS: Ht 170.2 cm; Wt 77.1 kg
[~2016-10-09] MED LIST changes: -E-Z-PAQUE 96% w/w SUSP 176GM BTL As Ordered ONE; +LIDOCAINE 2% INJ 100 MG/5 ML SDV (FOR ANES.) As Ordered ONE; +NS 1,000 ML IV ONE; +PROPOFOL 200 MG/20 ML VIAL As Ordered ONE
--- NOTE | 2016-10-09 08:29 | ROOR ---
Patient Name: Lexy Rodriguez Procedure Date: 10/09/2016 8:08 AM Date of : 1950 Age: 65 Room: [facility] Gender: Female Note Status: Finalized Procedure: Upper GI endoscopy Indications: Iron deficiency anemia Providers: Travis EDMONDSON MD Referring MD: Jason Cameron DO, Ayesha GRISSOM MD Requesting Provider: Medicines: Monitored Anesthesia Care Complications: No immediate complications. Procedure: Pre-Anesthesia Assessment: - The heart rate, respiratory rate, oxygen saturations, blood pressure, adequacy of pulmonary ventilation, and response to care were monitored throughout the procedure. The Endoscope was introduced through the mouth, and advanced to the second part of duodenum. The upper GI endoscopy was accomplished without difficulty. The patient tolerated the procedure well. Findings: Mild gastric antral vascular ectasia was present in the gastric antrum. Coagulation for bleeding prevention using argon beam at 0.8 liters/minute and 35 thorne was successful. The exam was otherwise without abnormality. Impression: - Gastric antral vascular ectasia. Treated with argon beam coagulation. - The examination was otherwise normal. - No specimens collected. Recommendation: - Observe patient's clinical course. - I anticipate no further need for intervention. 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 would monitor Hb and iron studies over next 2-3 months. If iron deficiency continues, will then do capsule endoscopy. Travis Edmondson MD Travis EDMONDSON MD 10/09/2016 8:28:38 AM This report has been signed electronically. Number of Addenda: 0 Note Initiated On: 10/09/2016 8:08 AM Estimated Blood Loss: Estimated blood loss: none.
[2016-10-09 08:55] VITALS: BP 194/102
== END | disposition home or self-care (01) ==
LOC: M OPP 07:02
PROVIDERS: ATTEND Internal Medicine Gastroenterology
DX: D50.9 Iron deficiency anemia, unspecified (principal); K31.819 Angiodysplasia of stomach and duodenum without bleeding; H26.9 Unspecified cataract; I10 Essential (primary) hypertension; E78.00 Pure hypercholesterolemia, unspecified; E11.9 Type 2 diabetes mellitus without complications; K21.9 Gastro-esophageal reflux disease without esophagitis; M19.90 Unspecified osteoarthritis, unspecified site; F33.9 Major depressive disorder, recurrent, unspecified; F41.9 Anxiety disorder, unspecified; G43.909 Migraine, unspecified, not intractable, without status migrainosus; G47.30 Sleep apnea, unspecified; Z79.899 Other long term (current) drug therapy; Z79.84 Long term (current) use of oral hypoglycemic drugs

== ENCOUNTER → 2016-11-25 | Outpatient (REF) | payer MEDICARE ==
[~2016-11-25] MED LIST changes: -ATOR40TA PO; +ATOR40TA75 PO; -COLA100C3 PO; +COLA100C5 PO; -LIDOCAINE 2% INJ 100 MG/5 ML SDV (FOR ANES.) As Ordered ONE; -MACR100C3 PO; +MACR100C43 PO; -MELA0.02 PO; +MELA3TAB49 PO; -METF1000 PO; +METF10004 PO; -NS 1,000 ML IV ONE; +PERC5TAB12 PO; -PERC5TAB6 PO; -PROPOFOL 200 MG/20 ML VIAL As Ordered ONE; -VITA-130 PO; +VITA500T PO
[2016-11-25 19:28] LABS: PERCENT SATURATION 28.3 % (13.2-45.0)
== END ==
LOC: M LAB REF 16:40
PROVIDERS: ATTEND Internal Medicine Medical Oncology
DX: D50.9 Iron deficiency anemia, unspecified (principal)

== ENCOUNTER → 2016-11-28 | Outpatient (CLI) | payer MEDICARE ==
--- NOTE | 2016-11-28 10:33 | REPMRS ---
Patient History The patient states she had a clinical breast exam in 11/2016. Family history of colorectal cancer in father at age 50 or over, colorectal cancer in paternal grandfather at age 50 or over, premenopausal breast cancer in sister at age 42, and colorectal cancer in paternal grandmother at age 50 or over. Took unspecified hormones for 27 years. Digital Woman Screen Mammo: November 28, 2016 - Exam #: [id number] Bilateral CC and MLO view(s) were taken. Technologist: Pilar Trinidad Technologist Prior study comparison: November 28, 2015, digital woman screen mammo performed at [facility]. October 05, 2014, digital woman screen mammo performed at [facility]. FINDINGS: There are scattered fibroglandular densities. There has been no change in the appearance of the mammogram from the prior studies. There is a mild amount of residual fibroglandular tissue which is fairly symmetric. There is no interval development of dominant mass, architectural distortion, or clustered microcalcification suggestive of malignancy. Scattered lymph nodes are seen in the axillae. There are scattered, small, benign calcifications of doubtful clinical significance. No significant changes when compared with prior studies. ASSESSMENT: BI-RADS/ACR category 2 mammogram. Benign finding(s). Recommendation Routine screening mammogram in 1 year (for women over age 40). This mammogram was interpreted with the aid of an FDA-approved computer-aided dectection system. A. Negative x-ray reports should not delay biopsy if a dominant or clinically suspicious mass is present. B. Four to eight percent of cancers are not identified by mammography. C. Adenosis and dense breast may obscure an underlying neoplasm. Electronically Signed By: Lane Henderson MD 11/28/16 [id number]
== END ==
LOC: M WHC 09:06
PROVIDERS: ATTEND Internal Medicine
DX: Z12.31 Encounter for screening mammogram for malignant neoplasm of breast (principal); Z80.3 Family history of malignant neoplasm of breast; Z92.0 Personal history of contraception

== ENCOUNTER → 2016-12-12 | Outpatient (CLI) | payer MEDICARE | LOC: M LAB 08:59 | PROVIDERS: ATTEND Internal Medicine | DX: D50.9 Iron deficiency anemia, unspecified (principal) ==

== ENCOUNTER → 2016-12-31 | Outpatient (CLI) | payer OTHER ==
--- NOTE | 2017-01-21 02:57 | ECWPNPC ---
PATIENT NAME: SANTIAGO INGRAM : 1950 GENDER: FEMALE VISIT DATE: 12/31/2016 DISCHARGE DATE: 12/31/16 1002 VISIT LOCKED DATE TIME: PHYSICIAN: NONI MEDINA RESOURCE: NONI MEDINA REASON FOR APPOINTMENT 1. UPPER EXTREMITY PAIN HISTORY OF PRESENT ILLNESS HISTORY OF PRESENT ILLNESS: PAIN THE PATIENT DESCRIBES THE PAIN... FALL RISK SCREENING: SCREENING :NO FALLS IN THE PAST YEAR TODAY'S VISIT: NOTES: WC FOLLOWUP FOR BILATERAL HAND/ARM PAIN. HAD RECENT FALL DOWN STAIRS. RATES PAIN 3-4/10. NOTES PAIN CENTERED IN HANDS WITH RADIATION UP THE ARMS. DESCRIBES THE PAIN INTERMITTANT AND ACHING. . CURRENT MEDICATIONS TAKING PROPRANOLOL HCL ER 60 MG CAPSULE EXTENDED RELEASE 24 HOUR 1 CAPSULE ORALLY ONCE A DAY TAKING LOSARTAN POTASSIUM 25 MG TABLET DIRECTED ORALLY DAILY TAKING METFORMIN HCL 500 MG TABLET 2 TABLET2 WITH MEALS ORALLY TWICE A DAY TAKING Topic SYSTEM W/DEVICE KIT CHECK BLOOD SUGARS ONCE DAILY EXTERNAL DAILY DX: E11.8 TAKING Fix8 LANCETS - MISCELLANEOUS CHECK BLOOD SUGARS ONCE DAILY SUBCUTANEOUSLY DAILY TAKING Fix8 ULTRA BLUE - STRIP CHECK BLOOD SUGARS ONCE DAILY IN VITRO DAILY DX: E11.8 TAKING JANUVIA 100 MG TABLET 1 TABLET ORALLY ONCE A DAY TAKING GLIPIZIDE 5 MG TABLET 1 TABLET ORALLY BID TAKING LIPITOR 40 MG TABLET 1 TABLET ORALLY ONCE A DAY TAKING GLUCOSE BLOOD ACCHUCHEK STRIP TEST STRIPS IN VITRO FSBS DAILY TAKING TYLENOL PM EXTRA STRENGTH 500-25 MG TABLET 1 TABLET AT BEDTIME NEEDED ORALLY ONCE A DAY TAKING CYMBALTA 60 MG CAPSULE DELAYED RELEASE PARTICLES 1 CAPSULE ORALLY ONCE A DAY TAKING GABAPENTIN 800 MG TABLET 1 TABLET ORALLY THREE TIMES A DAY TAKING MELATONIN 10 MG TABLET ORALLY BEFORE BEDTIME TAKING FERROUS SULFATE 325 (65 FE) MG TABLET 1 TABLET ORALLY BID TAKING SUMATRIPTAN SUCCINATE 4 MG/0.5ML SOLUTION AUTO-INJECTOR 0.5 ML NEEDED SUBCUTANEOUS ONCE DAILY NEEDED NOT-TAKING PRILOSEC 20 MG CAPSULE DELAYED RELEASE 1 CAPSULE ORALLY ONCE A DAY NOT-TAKING ONGLYZA 5 MG TABLET 1 TABLET ORALLY ONCE A DAY NOT-TAKING PROAIR HFA 108 (90 BASE) MCG/ACT AEROSOL SOLUTION 2 PUFFS NEEDED INHALATION QID PRN NOT-TAKING VENOFER 20 MG/ML SOLUTION DIRECTED INTRAVENOUS ONCE MEDICATION LIST REVIEWED AND RECONCILED WITH THE PATIENT PAST MEDICAL HISTORY DIABETES MELLITUS HYPERTENSION HYPERLIPIDEMIA DEPRESSION MIGRAINE HEADACHE, OCCASIONAL COMPLEX REGIONAL PAIN SYNDROME (CRPS) HX RENAL CALCULI WITH LITHOTRIPSY POSTMENOPAUSE HISTORY OF VITREOUS DETACHMENT DIFFICULTY WITH GENERAL ANESTHESIA BIAPICAL PLEURAL THICKENING - CHEST CT 08/2015 CHANO ON CPAP IRON DEFICIENCY ANEMIA HISTORY OF H PYLORI INFECTION HISTORY OF CARDIOMEGALY GERD REFUSED PNA VACCINE JANUARY 2016 ALLERGIES N.K.D.A. SURGICAL HISTORY APPENDECTOMY HYSTERECTOMY, PARTIAL OVARIAN CYST REMOVED ELBOW SURGERY, RIGHT COLONOSCOPY X 3 09/28/14 CYSTOSCOPY 08/21/15 CYSTO STENT PLACEMENT STENT REMOVED 10/15/1509/2015 CATARACT-RT 08/18/16 ENDOSCOPY 10/11 CATARACT REMOVAL-LT 08/2016 REVIEW OF SYSTEMS REVIEWED BY: PROVIDER: NONI ARANDA . CONSTITUTIONAL: ANY CHANGE IN YOUR MEDICAL CONDITION? EGD CAUTERIZED BLEEDING AREAS IN SEPTEMBER . CHILLS NO . FEVER NO . INFECTION: DO YOU HAVE NEW INFECTIONS? NO . DO YOU HAVE HISTORY OF MRSA? NO . MUSCULOSKELETAL: ANY NEW PATTERNS OF PAIN OR NUMBNESS? NO . GASTROENTEROLOGY: ANY NEW CHANGE IN BOWEL CONTROL? NO . GENITOURINARY: ANY NEW CHANGE IN BLADDER CONTROL? NO . IS THERE A CHANCE YOU COULD BE ? NO . HEMATOLOGY/LYMPH: DO YOU TAKE ANY BLOOD THINNERS? (FOR EXAMPLE- COUMADIN, PLAVIX, AGGRENOX, PLATEL, PRADAXA, OR XARELTO) NO . WHEN WAS YOUR LAST DOSE? DATE: TIME: . NEUROLOGY: HAVE YOU FALLEN IN THE PAST 6 MONTHS? YES, FELL DOWN CELLAR STAIRS 3 WEEKS AGO / FELL ON CLOTHI ON THE STEPS/ HIP AND KNEE BRUISED RAILING HAS BEEN PLACED AND NO MORE THROWING CLOTHES . ANY NEW EXTREMITY NUMBNESS OR WEAKNESS? NO . CARDIOLOGY: DO YOU HAVE A PACEMAKER OR DEFIBRILLATOR? NO . RESPIRATORY: HAVE YOU BEEN SICK IN THE PAST WEEK? NO . FEVER NO . FLU LIKE SYMPTOMS? NO . COUGH NO . INTEGUMENTARY: DO YOU HAVE ANY RASHES OR OPEN SORES? NO . ALLERGIC/IMMUNO: ARE YOU ALLERGIC TO SHELLFISH OR IV DYE? NO . ANY NEW ALLERGIES? NO . PSYCHIATRIC: DO YOU HAVE THOUGHTS OF HURTING YOURSELF OR SOMEONE ELSE? NO . ARE YOU ABUSED, NEGLECTED, OR IN AN UNSAFE ENVIRONMENT? NO . ENDOCRINOLOGY: ARE YOU DIABETIC? YES . OTHER: DO YOU NEED ANY PRESCRIPTIONS? NO . IF YES, PLEASE LIST: ____ . ANY NEW PROBLEMS WITH YOUR MEDICATIONS? NO . WHEN DID YOU LAST EAT? ____ . WHEN DID YOU LAST DRINK? ____ . WHAT DID YOU LAST DRINK? ____ . NAME OF PERSON DRIVING YOU HOME? ____ . DO YOU HAVE ANY OTHER QUESTIONS OR CONCERNS NO . VITAL SIGNS WT 175.8 LBS, HT 66.5 IN, BMI 27.95 INDEX, BP 130/67 MM HG, HR 74 /MIN, RR 16 /MIN, TEMP 97.2 F, OXYGEN SAT % 96%, NA INITIALS [place] 09:24. EXAMINATION GENERAL EXAMINATION: PSYCHALERT , ORIENTED X 3 , APPROPRIATE MOOD AND AFFECT , APPEARS UNCOMFORTABLE. LUNGS:DECREASED BREATH SOUNDS WITH SOME CRACKLES RIGHT LOWER LOBE. HEART:1/6 SYSTOLIC MURMUR HEARD ONLY WITH LEANING FORWARD., HEART RATE REGULAR. MUSCULOSKELETAL:ALLODYNIA TO ANY LIGHT TOUCH OR AIR MOVEMENT OVER HANDS, WRISTS FOREARMS. HANDS EDEMAPTOUS. VERY POOR RANGE OF MOTION WITH FINGER FLEXION/EXTENSION, AND WRIST FLEXION/EXTENSION. PARALEGAL INSTRUCTOR STRENGTH POOR. DUSKY COLORATION TO BOTH HANDS WITH WAXES AND WANES IN INTENSITY.. NEUROLOGIC EXAM:HYPERSENSATIVITY TO ANY LIGHT TOUCH OVER THE PALMAR AND DORSAL SURFACES OF THE HANDS. 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 DO EXERCISES TO HANDS AND WRISTS ABLE.CALL WHEN SCRIPTS DUE. PROCEDURES PN WORKMANS' COMP OPINION IN YOUR OPINION, WAS THE INCIDENT THAT THE PATIENT DESCRIBED THE COMPETENT MEDICAL CAUSE OF THIS INJURY/ILLNESS? YES ARE THE PATIENT'S COMPLAINTS CONSISTENT WITH HIS/HER HISTORY OF THE INJURY/ILLNESS? YES IS THE PATIENT'S HISTORY OF THE INJURY/ILLNESS CONSISTENT WITH YOUR OBJECTIVE FINDING? YES WHAT IS THE PERCENTAGE OF TEMPORARY IMPAIRMENT? TOTAL = 100% IS THE PATIENT WORKING? NO DOCTOR ON SITE: JANIE SHAHID MD PROCEDURE CODES FA211 ESTABILISHED PATIENT [facility] CHARGE DISPOSITION & COMMUNICATION FOLLOW UP 3 MONTHS (REASON: WC HANDS/ARMS) ELECTRONICALLY SIGNED BY DANIEL MENDOZA ON 01/19/2017 AT 07:13 PM EDT DISCLAIMER : THIS IS A VISIT SUMMARY EXTRACTED FROM THE [employer] CHART. IT IS NOT A COPY OF THE [employer] PROGRESS NOTE. BABATUNDE
== END ==
LOC: M PAIN 09:00
PROVIDERS: ATTEND Nurse Practitioner Family
DX: M79.2 Neuralgia and neuritis, unspecified (principal); D50.9 Iron deficiency anemia, unspecified; E11.49 Type 2 diabetes mellitus with other diabetic neurological complication; I10 Essential (primary) hypertension; E78.5 Hyperlipidemia, unspecified; Z79.899 Other long term (current) drug therapy; Z79.84 Long term (current) use of oral hypoglycemic drugs

== ENCOUNTER → 2017-03-24 | Outpatient (CLI) | payer OTHER ==
--- NOTE | 2017-04-13 00:18 | ECWPNPC ---
PATIENT NAME: SANTIAGO INGRAM : 1950 GENDER: FEMALE VISIT DATE: 03/24/2017 DISCHARGE DATE: 03/24/17 1013 VISIT LOCKED DATE TIME: PHYSICIAN: NONI MEDINA RESOURCE: NONI MEDINA REASON FOR APPOINTMENT 1. ARMS HISTORY OF PRESENT ILLNESS HISTORY OF PRESENT ILLNESS: PAIN THE PATIENT DESCRIBES THE PAIN... FALL RISK SCREENING: SCREENING :NO FALLS IN THE PAST YEAR TODAY'S VISIT: NOTES: WC FOLLOWUP FOR BILATERAL ARM PAIN. RATES PAIN TODAY 4/10. DESCRIBES PAIN INTERMITTANT, BURNING BUT WITH CONSISTANT LACK OF FUNCTION IN THE HANDS AND ARMS. . IS NOTING CONTINUED INTERMITTANT SWELLING OF HANDS AND FOREARMS. . CURRENT MEDICATIONS TAKING PROPRANOLOL HCL ER 60 MG CAPSULE EXTENDED RELEASE 24 HOUR 1 CAPSULE ORALLY ONCE A DAY TAKING LOSARTAN POTASSIUM 25 MG TABLET DIRECTED ORALLY DAILY TAKING METFORMIN HCL 500 MG TABLET 2 TABLET2 WITH MEALS ORALLY TWICE A DAY TAKING Zostel SYSTEM W/DEVICE KIT CHECK BLOOD SUGARS ONCE DAILY EXTERNAL DAILY DX: E11.8 TAKING Sazneo LANCETS - MISCELLANEOUS CHECK BLOOD SUGARS ONCE DAILY SUBCUTANEOUSLY DAILY TAKING Sazneo ULTRA BLUE - STRIP CHECK BLOOD SUGARS ONCE DAILY IN VITRO DAILY DX: E11.8 TAKING GLUCOSE BLOOD ACCHUCHEK STRIP TEST STRIPS IN VITRO FSBS DAILY TAKING TYLENOL PM EXTRA STRENGTH 500-25 MG TABLET 1 TABLET AT BEDTIME NEEDED ORALLY ONCE A DAY TAKING GABAPENTIN 800 MG TABLET 1 TABLET ORALLY THREE TIMES A DAY TAKING MELATONIN 10 MG TABLET ORALLY BEFORE BEDTIME TAKING FERROUS SULFATE 325 (65 FE) MG TABLET 1 TABLET ORALLY BID TAKING SUMATRIPTAN SUCCINATE 4 MG/0.5ML SOLUTION AUTO-INJECTOR 0.5 ML NEEDED SUBCUTANEOUS ONCE DAILY NEEDED TAKING JANUVIA 100 MG TABLET 1 TABLET ORALLY ONCE A DAY TAKING CYMBALTA 60 MG CAPSULE DELAYED RELEASE PARTICLES 1 CAPSULE ORALLY ONCE A DAY TAKING LIPITOR 40 MG TABLET 1 TABLET ORALLY ONCE A DAY TAKING GLIPIZIDE 5 MG TABLET 1 TABLET ORALLY BID NOT-TAKING PRILOSEC 20 MG CAPSULE DELAYED RELEASE 1 CAPSULE ORALLY ONCE A DAY NOT-TAKING ONGLYZA 5 MG TABLET 1 TABLET ORALLY ONCE A DAY NOT-TAKING PROAIR HFA 108 (90 BASE) MCG/ACT AEROSOL SOLUTION 2 PUFFS NEEDED INHALATION QID PRN NOT-TAKING VENOFER 20 MG/ML SOLUTION DIRECTED INTRAVENOUS ONCE MEDICATION LIST REVIEWED AND RECONCILED WITH THE PATIENT PAST MEDICAL HISTORY DIABETES MELLITUS HYPERTENSION HYPERLIPIDEMIA DEPRESSION MIGRAINE HEADACHE, OCCASIONAL COMPLEX REGIONAL PAIN SYNDROME (CRPS) HX RENAL CALCULI WITH LITHOTRIPSY POSTMENOPAUSE HISTORY OF VITREOUS DETACHMENT DIFFICULTY WITH GENERAL ANESTHESIA BIAPICAL PLEURAL THICKENING - CHEST CT 08/2015 CHANO ON CPAP IRON DEFICIENCY ANEMIA HISTORY OF H PYLORI INFECTION HISTORY OF CARDIOMEGALY GERD REFUSED PNA VACCINE JANUARY 2016 ALLERGIES N.K.D.A. SOCIAL HISTORY GENERAL: TOBACCO USE ARE YOU A:NONSMOKER NEVER SMOKER BMI CARE GOAL FOLLOW-UP ABOVE NORMAL BMI FOLLOW-UPLIFESTYLE EDUCATION REGARDING DIET ALCOHOL SCREENING DID YOU HAVE A DRINK CONTAINING ALCOHOL IN THE PAST YEAR?NO POINTS0 INTERPRETATIONNEGATIVE RECREATIONAL DRUG USE DRUG USE?NO CAFFEINE CAFFEINE USE?YES SEXUAL HX HAD SEX IN THE LAST 12 MONTHS (VAGINAL, ORAL, OR ANAL)?YES WITHMEN ONLY OCCUPATION: UNEMPLOYED. DIET: REGULAR. EXERCISE: NO REGULAR EXERCISE. MARITAL STATUS: . OTHERS AT HOME: SPOUSE. PETS: DOG. SCIENTOLOGY NO ADVENTIST BELIEFS THAT WOULD IMPACT HEALTH CARE. LANGUAGE [place]ER. EDUCATION LEVEL OF EDUCATION:HIGH SCHOOL LEARNING BARRIERS / SPECIAL NEEDS CHANGE FROM LAST VISIT?YES BARRIERS TO LEARNING?NO HEARING IMPAIRED?NO VISION IMPAIRED?YES :CORRECTIVE LENSES COGNITIVELY IMPAIRED?NO READINESS TO LEARN?YES LEARNING PREFERENCES?NO LEARNING CAPABILITIES PRESENT?YES EMOTIONAL BARRIERS?NO SPECIAL DEVICES?NO CABLE REELER NEEDED?NO NEW PATIENT PAIN DIARY TODAY'S VISIT NOTES, FROM 0-10, WHAT LEVEL IS YOUR PAIN TODAY? 0. PAIN CLINIC PFS, CLERGY, PUBLIC HEALTH REFERRALS PFS REFERRAL NEEDED?NO CLERGY REFERRAL NEEDED?NO PUBLIC HEALTH REFERRAL NEEDED?NO HAS THE PATIENT BEEN EDUCATED REGARDING HIS/HER PLAN OF CARE?YES HAS THE PATIENT BEEN EDUCATED REGARDING PAIN, THE RISK FOR PAIN, THE IMPORTANCE OF EFFECTIVE PAIN MANAGEMENT, AND THE PAIN ASSESSMENT PROCESS?YES ADVANCE DIRECTIVES HEALTH CARE PROXY?NO WOULD YOU LIKE MORE INFORMATION?NO DO YOU HAVE A DNR?NO WOULD YOU LIKE MORE INFORMATION?NO LIVING WILL?NO WOULD YOU LIKE MORE INFORMATION?NO POWER OF VIOLIN RESTORER?NO WOULD YOU LIKE MORE INFORMATION?NO REVIEW OF SYSTEMS REVIEWED BY: PROVIDER: . CONSTITUTIONAL: ANY CHANGE IN YOUR MEDICAL CONDITION? YES, IRON LEVEL IS LOW AND IS SCHEDULED FOR AN INFUSION NEXT WEEK . CHILLS NO . FEVER NO . INFECTION: DO YOU HAVE NEW INFECTIONS? NO . DO YOU HAVE HISTORY OF MRSA? NO . MUSCULOSKELETAL: ANY NEW PATTERNS OF PAIN OR NUMBNESS? YES, TINGLING AND NUMBNESS BOTTOMS OF BOTH FEET . GASTROENTEROLOGY: ANY NEW CHANGE IN BOWEL CONTROL? NO . GENITOURINARY: ANY NEW CHANGE IN BLADDER CONTROL? NO . IS THERE A CHANCE YOU COULD BE ? NO . HEMATOLOGY/LYMPH: DO YOU TAKE ANY BLOOD THINNERS? (FOR EXAMPLE- COUMADIN, PLAVIX, AGGRENOX, PLATEL, PRADAXA, OR XARELTO) NO . WHEN WAS YOUR LAST DOSE? DATE: TIME: . NEUROLOGY: HAVE YOU FALLEN IN THE PAST 6 MONTHS? NO . ANY NEW EXTREMITY NUMBNESS OR WEAKNESS? NO . CARDIOLOGY: DO YOU HAVE A PACEMAKER OR DEFIBRILLATOR? NO . RESPIRATORY: HAVE YOU BEEN SICK IN THE PAST WEEK? NO . FEVER NO . FLU LIKE SYMPTOMS? NO . COUGH NO . INTEGUMENTARY: DO YOU HAVE ANY RASHES OR OPEN SORES? NO . ALLERGIC/IMMUNO: ARE YOU ALLERGIC TO SHELLFISH OR IV DYE? NO . ANY NEW ALLERGIES? NO . PSYCHIATRIC: DO YOU HAVE THOUGHTS OF HURTING YOURSELF OR SOMEONE ELSE? NO . ARE YOU ABUSED, NEGLECTED, OR IN AN UNSAFE ENVIRONMENT? NO . ENDOCRINOLOGY: ARE YOU DIABETIC? YES . OTHER: DO YOU NEED ANY PRESCRIPTIONS? NO . IF YES, PLEASE LIST: ____ . ANY NEW PROBLEMS WITH YOUR MEDICATIONS? NO . WHEN DID YOU LAST EAT? ____ . WHEN DID YOU LAST DRINK? ____ . WHAT DID YOU LAST DRINK? ____ . NAME OF PERSON DRIVING YOU HOME? ____ . DO YOU HAVE ANY OTHER QUESTIONS OR CONCERNS NO . VITAL SIGNS WT 178.8 LBS, HT 66.5 IN, BMI 28.42 INDEX, BP 141/66 MM HG, HR 67 /MIN, RR 16 /MIN, TEMP 97.4 F, OXYGEN SAT % 100%, SAFE IN ENV? (Y/N) YES, NA INITIALS [place] 09:04, REVIEWED BY: EH. EXAMINATION GENERAL EXAMINATION: PSYCHALERT AND ENGAGES ME APPROPRIATELY FOR AGE, ORIENTED X 3 , ORIENTED X 3 , APPROPRIATE MOOD AND AFFECT . LUNGS:CLEAR TO AUSCULTATION BILATERALLY. HEART:NORMAL S1S2, NO MURMURS, CLICK OR RUBS. EXTREMITIES:HYPERSENSITIVITY TO LIGHT TOUCH OVER BOTH ARMS FROM FINGERTIPS TO SHOULDER. EDEMA ACROSS DOSUM OF BOTH HANDS, TODAY LEFT > RIGHT. UNABLE TO FULLY OPEN THE FINGERS THIS MORNING . 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 CONTINUE GABAPENTIN FOR NEUROPATHIC PAIN. PROCEDURES PN WORKMANS' COMP OPINION IN YOUR OPINION, WAS THE INCIDENT THAT THE PATIENT DESCRIBED THE COMPETENT MEDICAL CAUSE OF THIS INJURY/ILLNESS? YES ARE THE PATIENT'S COMPLAINTS CONSISTENT WITH HIS/HER HISTORY OF THE INJURY/ILLNESS? YES IS THE PATIENT'S HISTORY OF THE INJURY/ILLNESS CONSISTENT WITH YOUR OBJECTIVE FINDING? YES WHAT IS THE PERCENTAGE OF TEMPORARY IMPAIRMENT? TOTAL = 100% IS THE PATIENT WORKING? NO DOCTOR ON SITE: JANIE SHAHID MD PROCEDURE CODES FA211 ESTABILISHED PATIENT [facility] CHARGE DISPOSITION & COMMUNICATION FOLLOW UP 3 MONTHS (REASON: WC ARMS) ELECTRONICALLY SIGNED BY DANIEL MENDOZA ON 04/12/2017 AT 03:44 PM EST DISCLAIMER : THIS IS A VISIT SUMMARY EXTRACTED FROM THE [employer] CHART. IT IS NOT A COPY OF THE [employer] PROGRESS NOTE. BABATUNDE
== END ==
LOC: M PAIN 09:00
PROVIDERS: ATTEND Nurse Practitioner Family
DX: M79.2 Neuralgia and neuritis, unspecified (principal); E11.9 Type 2 diabetes mellitus without complications; I10 Essential (primary) hypertension; F32.9 Major depressive disorder, single episode, unspecified; G43.909 Migraine, unspecified, not intractable, without status migrainosus; G47.33 Obstructive sleep apnea (adult) (pediatric); Z79.84 Long term (current) use of oral hypoglycemic drugs; Z79.899 Other long term (current) drug therapy

== ENCOUNTER → 2017-04-22 | Outpatient (REF) | payer MEDICARE, OTHER ==
[2017-04-22 13:37] LABS: FERRITIN 26 NG/ML (8-252); PERCENT SATURATION 23.5 % (13.2-45.0); TOTAL IRON BINDING CAPACITY 379 UG/DL (250-450)
== END ==
LOC: M LAB REF 12:43
DX: D50.9 Iron deficiency anemia, unspecified (principal)
CPT/HCPCS: 83550

== ENCOUNTER → 2017-05-08 | Outpatient (CLI) | payer MEDICARE ==
[2017-05-08 13:03] LABS: CHOLESTEROL LEVEL 142 MG/DL (<200); CHOLESTEROL RISK RATIO 3.463 (<5); HDL CHOLESTEROL 41 MG/DL (>40); LDL CHOLESTEROL 52.8 MG/DL (<100); NON-HDL-C 101 MG/DL; TRIGLYCERIDES LEVEL 241 MG/DL (<150)
[2017-05-08 13:11] LABS: MALB URINE SIEMENS 21.7 MG/L
[2017-05-08 13:40] LABS: ESTIMATED AVERAGE GLUCOSE 203 MG/DL (60-110); HEMOGLOBIN A1c 8.7 %
[2017-05-08 18:12] LABS: HEPATITIS C VIRUS ABY INDEX 0.2 INDEX (<0.8)
== END ==
LOC: M LAB 11:18
DX: E78.5 Hyperlipidemia, unspecified (principal); E11.8 Type 2 diabetes mellitus with unspecified complications
CPT/HCPCS: 83036

== ENCOUNTER → 2017-05-21 | Outpatient (REF) | payer MEDICARE | LOC: M SFHCPLAZ 11:41 | DX: L82.1 Other seborrheic keratosis (principal) | CPT/HCPCS: 88305 ==

== ENCOUNTER → 2017-06-03 | Outpatient (REF) | payer MEDICARE ==
[2017-06-03 13:20] LABS: FERRITIN 373 NG/ML (8-252); IRON (FE) 85 UG/DL (50-170); TOTAL IRON BINDING CAPACITY 274 UG/DL (250-450)
== END ==
LOC: M LAB REF 12:23
DX: D50.9 Iron deficiency anemia, unspecified (principal)
CPT/HCPCS: 83550

== ENCOUNTER → 2017-06-24 | Outpatient (CLI) | payer OTHER | LOC: M PAIN 09:00 | DX: M79.2 Neuralgia and neuritis, unspecified (principal); I10 Essential (primary) hypertension; E11.9 Type 2 diabetes mellitus without complications; E78.5 Hyperlipidemia, unspecified; Z79.84 Long term (current) use of oral hypoglycemic drugs; Z79.899 Other long term (current) drug therapy; Z78.0 Asymptomatic menopausal state; Z87.442 Personal history of urinary calculi | CPT/HCPCS: G0463 ==

== ENCOUNTER → 2017-09-24 | Outpatient (CLI) | payer OTHER | LOC: M PAIN 08:30 | DX: M79.2 Neuralgia and neuritis, unspecified (principal); E11.9 Type 2 diabetes mellitus without complications; I10 Essential (primary) hypertension; E78.5 Hyperlipidemia, unspecified; F32.9 Major depressive disorder, single episode, unspecified; G43.909 Migraine, unspecified, not intractable, without status migrainosus; G47.33 Obstructive sleep apnea (adult) (pediatric); K21.9 Gastro-esophageal reflux disease without esophagitis; Z79.84 Long term (current) use of oral hypoglycemic drugs; Z79.899 Other long term (current) drug therapy; Z86.79 Personal history of other diseases of the circulatory system | CPT/HCPCS: G0463 ==

== ENCOUNTER → 2017-11-04 | Outpatient (CLI) | payer MEDICARE | LOC: M WUC 17:34 | DX: R10.31 Right lower quadrant pain (principal) | CPT/HCPCS: 74018; 87086 ==

== ENCOUNTER → 2017-11-04 | Outpatient (REF) | payer MEDICARE | LOC: M LAB REF 19:34 | DX: R30.0 Dysuria (principal) | CPT/HCPCS: 87086 ==

== ENCOUNTER → 2017-11-09 | Outpatient (REF) | payer MEDICARE | LOC: M LAB REF 13:25 | DX: R30.0 Dysuria (principal) | CPT/HCPCS: 87086 ==

== ENCOUNTER → 2017-11-11 | Outpatient (REF) | payer OTHER ==
[2017-11-11 11:44] LABS: HEMATOCRIT 35.9 % (36.0-47.0); HEMOGLOBIN 11.6 g/dl (12.0-15.5); MEAN CORPUSCULAR HEMOGLOBIN 31.4 pg (27.0-33.0); MEAN CORPUSCULAR HGB CONC 32.3 g/dl (32.0-36.5); PLATELET COUNT, AUTOMATED 289 10^3/uL (150-450); RED CELL DISTRIBUTION WIDTH 11.6 % (11.5-14.5); WHITE BLOOD COUNT 6.6 10^3/uL (4.0-10.0)
[2017-11-11 12:02] LABS: ESTIMATED AVERAGE GLUCOSE 180 MG/DL (60-110); HEMOGLOBIN A1c 7.9 %
[2017-11-11 13:02] LABS: MALB URINE SIEMENS 58.8 MG/L; MAU/CREAT RATIO 43.5 MCG/MG (0.0-30.0)
== END ==
LOC: M SFHCPLAZ 08:23
DX: E11.8 Type 2 diabetes mellitus with unspecified complications (principal); K31.819 Angiodysplasia of stomach and duodenum without bleeding
CPT/HCPCS: 83036

== ENCOUNTER → 2017-11-12 | Outpatient (REF) | payer MEDICARE ==
[2017-11-13 10:47] LABS: APPEARANCE, URINE CLOUDY (CLEAR); BACTERIA, URINE AUTO NEGATIVE (NEGATIVE); BILIRUBIN, URINE AUTO NEGATIVE (NEGATIVE); BLOOD, URINE BLOOD 3+ (NEGATIVE); CALCIUM OXALATE CRYSTALS MODERATE; COLOR, URINE YELLOW (YELLOW); GLUCOSE, URINE (UA) AUTO 1+ mg/dL (NEGATIVE); KETONE, URINE AUTO TRACE mg/dL (NEGATIVE); LEUKOCYTE ESTERASE, URINE AUTO TRACE (NEGATIVE); MUCUS, URINE SMALL (NEGATIVE); NITRITE, URINE AUTO NEGATIVE (NEGATIVE); PROTEIN, URINE AUTO 2+ mg/dL (NEGATIVE); RBC, URINE AUTO 145 /HPF (0-3); SPECIFIC GRAVITY URINE AUTO 1.023 (1.002-1.035); SQUAMOUS EPITHELIAL CELL UR AU 1 /HPF (0-6); UROBILINOGEN, URINE AUTO 0.2 mg/dL (0.0-2.0); WBC, URINE AUTO 4 /HPF (0-3)
== END ==
LOC: M SFHCPLAZ 10:24
DX: R39.15 Urgency of urination (principal)
CPT/HCPCS: 81001

== ENCOUNTER → 2017-11-30 | Outpatient (CLI) | payer MEDICARE | LOC: M WHC 09:59 | DX: Z01.419 Encounter for gynecological examination (general) (routine) without abnormal findings (principal); Z12.31 Encounter for screening mammogram for malignant neoplasm of breast (principal); Z92.29 Personal history of other drug therapy; Z80.3 Family history of malignant neoplasm of breast | CPT/HCPCS: 77067 ==

== ENCOUNTER → 2017-12-29 | Outpatient (CLI) | payer OTHER | LOC: M PAIN 08:30 | DX: M79.2 Neuralgia and neuritis, unspecified (principal); E11.9 Type 2 diabetes mellitus without complications; I10 Essential (primary) hypertension; E78.5 Hyperlipidemia, unspecified; F32.9 Major depressive disorder, single episode, unspecified; G43.909 Migraine, unspecified, not intractable, without status migrainosus; G47.33 Obstructive sleep apnea (adult) (pediatric); K21.9 Gastro-esophageal reflux disease without esophagitis; Z79.84 Long term (current) use of oral hypoglycemic drugs; Z79.899 Other long term (current) drug therapy | CPT/HCPCS: G0463 ==

== ENCOUNTER → 2018-03-01 | Outpatient (CLI) | payer MEDICARE | LOC: M RAD 09:26 | DX: N20.0 Calculus of kidney (principal); N13.30 Unspecified hydronephrosis; K76.0 Fatty (change of) liver, not elsewhere classified | CPT/HCPCS: 74176 ==

== ENCOUNTER → 2018-03-04 | Outpatient (REF) | payer MEDICARE ==
[2018-03-04 13:45] LABS: ANION GAP 12 MEQ/L (8-16); BLOOD UREA NITROGEN 13 MG/DL (7-18); CALCIUM LEVEL 9.4 MG/DL (8.8-10.2); CARBON DIOXIDE LEVEL 27 MEQ/L (21-32); CHLORIDE LEVEL 96 MEQ/L (98-107); CREATININE FOR GFR 0.74 MG/DL (0.55-1.30); GLOMERULAR FILTRATION RATE > 60.0 (>45); GLUCOSE, FASTING 245 MG/DL (70-100); POTASSIUM SERUM 3.2 MEQ/L (3.5-5.1); SODIUM LEVEL 135 MEQ/L (136-145)
== END ==
LOC: M SFHCPLAZ 08:52
DX: N20.0 Calculus of kidney (principal)
CPT/HCPCS: 80048

== ENCOUNTER → 2018-03-10 | Outpatient (REF) | payer MEDICARE ==
[2018-03-10 13:59] LABS: APPEARANCE, URINE HAZY (CLEAR); BACTERIA, URINE AUTO NEGATIVE (NEGATIVE); BILIRUBIN, URINE AUTO NEGATIVE (NEGATIVE); BLOOD, URINE BLOOD NEGATIVE (NEGATIVE); COLOR, URINE YELLOW (YELLOW); GLUCOSE, URINE (UA) AUTO 3+ mg/dL (NEGATIVE); KETONE, URINE AUTO TRACE mg/dL (NEGATIVE); LEUKOCYTE ESTERASE, URINE AUTO NEGATIVE (NEGATIVE); MUCUS, URINE SMALL (NEGATIVE); NITRITE, URINE AUTO NEGATIVE (NEGATIVE); PROTEIN, URINE AUTO 1+ mg/dL (NEGATIVE); RBC, URINE AUTO 5 /HPF (0-3); SPECIFIC GRAVITY URINE AUTO 1.017 (1.002-1.035); SQUAMOUS EPITHELIAL CELL UR AU 1 /HPF (0-6); UROBILINOGEN, URINE AUTO 0.2 mg/dL (0.0-2.0); WBC, URINE AUTO 3 /HPF (0-3)
== END ==
LOC: M SMT 13:15
DX: Z01.818 Encounter for other preprocedural examination (principal); N20.0 Calculus of kidney
CPT/HCPCS: 81001

== ENCOUNTER → 2018-03-10 | Outpatient (CLI) | payer MEDICARE | LOC: M SMT 15:30 | DX: Z01.818 Encounter for other preprocedural examination (principal); N20.0 Calculus of kidney; I51.7 Cardiomegaly | CPT/HCPCS: 71046; 81001 ==

== ENCOUNTER → 2018-03-24 | Outpatient (CLI) | payer MEDICARE ==
[2018-03-24 08:30] LABS: HEMATOCRIT 35.8 % (36.0-47.0); HEMOGLOBIN 11.9 g/dl (12.0-15.5); MEAN CORPUSCULAR HEMOGLOBIN 30.8 pg (27.0-33.0); MEAN CORPUSCULAR HGB CONC 33.2 g/dl (32.0-36.5); MEAN CORPUSCULAR VOLUME 92.7 fl (80.0-96.0); PLATELET COUNT, AUTOMATED 291 10^3/uL (150-450); RED BLOOD COUNT 3.86 10^6/uL (4.00-5.40); RED CELL DISTRIBUTION WIDTH 11.8 % (11.5-14.5); WHITE BLOOD COUNT 5.3 10^3/uL (4.0-10.0)
[2018-03-24 08:43] LABS: INR 0.93; PROTHROMBIN TIME 12.5 SECONDS (12.1-14.4)
[2018-03-24 08:44] LABS: PARTIAL THROMBOPLASTIN TIME 34.1 SECONDS (25.4-37.6)
[2018-03-24 08:54] LABS: ANION GAP 9 MEQ/L (8-16); BLOOD UREA NITROGEN 14 MG/DL (7-18); CALCIUM LEVEL 8.8 MG/DL (8.8-10.2); CARBON DIOXIDE LEVEL 29 MEQ/L (21-32); CHLORIDE LEVEL 99 MEQ/L (98-107); CREATININE FOR GFR 0.77 MG/DL (0.55-1.30); GLOMERULAR FILTRATION RATE > 60.0 (>45); GLUCOSE, FASTING 207 MG/DL (70-100); POTASSIUM SERUM 3.3 MEQ/L (3.5-5.1); SODIUM LEVEL 137 MEQ/L (136-145)
== END ==
LOC: M LAB 07:48
DX: N20.0 Calculus of kidney (principal)
CPT/HCPCS: 80048

== ENCOUNTER 2018-04-01 06:07 | Day surgery (SDC) | payer MEDICARE ==
[~2018-04-01] VITALS: Ht 170.2 cm; Wt 78.5 kg
[~2018-04-01 06:07] MED LIST changes: +CHLO25TA PO; +FLOM0.4C39 PO; -FLOM5CAP PO; +LOSA25TA14 PO; -LOSA25TA8 PO; +OMEP20CA3 PO; +POTA1TAB14 PO; +POTA4.25 PO; -PROP40TA PO; +PROP40TA62 PO; +PROP60CA PO; +ZOFR4TAB14 PO; -ZOFR4TAB3 PO
[2018-04-01] MEDS ORDERED: ceFAZolin 2 GM/D5W 50 ML IV BAG (J0690 PER 500MG) As Ordered ONE (06:46)
[2018-04-01] MEDS ORDERED: PROPOFOL 200 MG/20 ML VIAL As Ordered ONE (07:13)
[2018-04-01] MEDS ORDERED: fentaNYL 100 MCG/2 ML INJECTION (J3010) As Ordered ONE (07:13)
[2018-04-01] MEDS ORDERED: MIDAZOLAM INJ 2 MG/2 ML VIAL (J2250) As Ordered ONE (07:13)
[2018-04-01] MEDS ORDERED: MORPHINE 10 MG/ML 1ML VIAL (J2270) IV PRN (08:45)
[2018-04-01] MEDS ORDERED: ONDANSETRON 4MG/2ML VIAL (J2405) IV PRN (08:45)
[2018-04-01] MEDS ORDERED: PERCOCET 5MG/325MG TAB PO PRN (08:45)
[2018-04-01] MEDS ORDERED: LR 1,000 ML IV SCH (08:45)
[2018-04-01 09:00] VITALS: BP 136/70
--- NOTE | 2018-04-01 10:15 | REP ---
KUB: Single view. History: Kidney stone. Comparison study: November 04, 2017. Findings: Bowel gas pattern is normal. There is a calcific opacity projecting over the upper pole of the left kidney today. CT study from March 01, 2018 did not show an upper pole calculus on the left and this may be superimposed. The right renal pelvis stone seen on the recent CT study is not apparent today. There are phleboliths in the left pelvis. Flank stripes are intact. Psoas margins are symmetric. Impression: No definite urinary tract calculus. Electronically Signed by Delmer Ariza MD 04/01/2018 03:00 P
--- NOTE | 2018-04-02 16:43 | RO ---
DATE OF PROCEDURE: 04/01/2018 PREPROCEDURE DIAGNOSIS: Right kidney stone. POSTPROCEDURE DIAGNOSIS: Right kidney stone. PROCEDURE: Right extracorporeal shock wave lithotripsy. SURGEON: Lukasz Bangura MD DIGITAL MUSIC INSTRUCTOR: None ANESTHESIA: MAC. OPERATIVE INDICATIONS: This is a 67-year-old female who on recent CAT scan was found to have an approximately 7 mm right ureteropelvic junction stone. She was brought to the operating room today for the above-listed procedure. DESCRIPTION OF PROCEDURE: The patient was brought to the operating room where MAC anesthesia was administered. Prophylactic antibiotics were infused. She was then placed in the supine position in preparation for a right-sided extracorporeal shock wave lithotripsy. Fluoroscopy and ultrasonography were utilized to monitor stone position and fragmentation throughout the procedure. Shock waves were then delivered to the right-sided kidney stone, ungated. There were no arrhythmias. The stone did appear to fragment well. After 2500 shocks, the procedure was concluded. The patient was then awakened from anesthesia and transported to the recovery room in stable condition. Estimated blood loss: 0 mL. Complications: None. Specimens: None. Plan: The patient will followup in the clinic in a few weeks with imaging prior to assess for residual stone burden. BABATUNDE
== END 2018-04-01 09:11 | disposition home or self-care (01) ==
LOC: M SDC 06:07
PROVIDERS: ATTEND Urology
DX: N20.0 Calculus of kidney (principal); I11.9 Hypertensive heart disease without heart failure; E11.40 Type 2 diabetes mellitus with diabetic neuropathy, unspecified; E11.649 Type 2 diabetes mellitus with hypoglycemia without coma; E78.5 Hyperlipidemia, unspecified; F32.9 Major depressive disorder, single episode, unspecified; G43.909 Migraine, unspecified, not intractable, without status migrainosus; G90.50 Complex regional pain syndrome I, unspecified; G47.33 Obstructive sleep apnea (adult) (pediatric); D50.9 Iron deficiency anemia, unspecified; K21.9 Gastro-esophageal reflux disease without esophagitis; E87.6 Hypokalemia; K31.819 Angiodysplasia of stomach and duodenum without bleeding; T88.59XD Other complications of anesthesia, subsequent encounter; I51.7 Cardiomegaly; K64.8 Other hemorrhoids; R23.3 Spontaneous ecchymoses; R29.898 Other symptoms and signs involving the musculoskeletal system; F41.9 Anxiety disorder, unspecified; J84.10 Pulmonary fibrosis, unspecified; R06.09 Other forms of dyspnea; Z79.899 Other long term (current) drug therapy; Z79.84 Long term (current) use of oral hypoglycemic drugs; Z98.41 Cataract extraction status, right eye; Z98.42 Cataract extraction status, left eye; Z96.1 Presence of intraocular lens; Z90.710 Acquired absence of both cervix and uterus
CPT/HCPCS: 50590; 74018; J0690

== ENCOUNTER → 2018-04-12 | Outpatient (CLI) | payer MEDICARE ==
[~2018-04-12] MED LIST changes: -LOSA25TA14 PO; +LOSA25TA33 PO
--- NOTE | 2018-04-28 00:02 | ECWPNPC ---
PATIENT NAME: SANTIAGO INGRAM : 1950 GENDER: FEMALE VISIT DATE: 04/12/2018 DISCHARGE DATE: 04/12/181756 VISIT LOCKED DATE TIME: PHYSICIAN: JANIE FORD MD RESOURCE: JANIE FORD MD REASON FOR APPOINTMENT 1. WC ARMS/HANDS HISTORY OF PRESENT ILLNESS HISTORY OF PRESENT ILLNESS: PAIN THE PATIENT DESCRIBES THE PAIN... 67 YEAR OLD FEMALE PATIENT WITH A HISTORY OF CHRONIC ARM PAIN. THE PATIENT DESCRIBES THE PAIN ACHING, BURNING, TENDER, AND IT COMES AND GOES WITH A PAIN SCORE OF 8-10/10 DEPENDING ON PHYSICAL ACTIVITY. 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 THE PATIENT STATES THAT SHE CONTINUED TO WORK AT FIRST, BUT WAS THEN TAKEN OUT OF WORK. THE PATIENT STATES HER PAIN ORIGINALLY STARTED IN HER RIGHT ARM, SO SHE HAD SURGERY ON HER RIGHT SHOULDER BUT IT DID NOT HELP HER PAIN. THE PATIENT SAYS THAT YEARS AFTER THE ACCIDENT SHE STARTED TO FEEL THE SAME SYMPTOMS IN HER LEFT ARM WELL. THE PATIENT SAYS THAT SHE SOAKS HER ARMS IN WARM WATER TO HELP RELIEVE THE PAIN AND IS UNABLE TO USE A HEATING PAD DUE TO HER ARMS HURTING TO THE TOUCH. THE PATIENT IS CURRENTLY USING CYMBALTA AND GABAPENTIN FOR THE NEUROPATHIC PAIN AND STATES THAT THE MEDICATIONS HELP KEEP HER FUNCTIONAL. PATIENT DENIES UNEXPLAINABLE WEIGHT LOSS, FEVER, CHILLS, NEW CHANGES ON HER URINARY OR BOWEL CONTROL. FALL RISK SCREENING: SCREENING :NO FALLS IN THE PAST YEAR CURRENT MEDICATIONS TAKING JANUVIA 100 MG TABLET 1 TABLET ORALLY ONCE A DAY TAKING fitaborate ULTRA SYSTEM W/DEVICE KIT CHECK BLOOD SUGARS ONCE DAILY EXTERNAL DAILY DX: E11.8 TAKING TRX SystemsUCH LANCETS - MISCELLANEOUS CHECK BLOOD SUGARS ONCE DAILY SUBCUTANEOUSLY DAILY TAKING TRX SystemsUCH ULTRA BLUE - STRIP CHECK BLOOD SUGARS ONCE DAILY IN VITRO DAILY DX: E11.8 TAKING GLUCOSE BLOOD ACCHUCHEK STRIP TEST STRIPS IN VITRO FSBS DAILY TAKING TYLENOL PM EXTRA STRENGTH 500-25 MG TABLET 1 TABLET AT BEDTIME NEEDED ORALLY ONCE A DAY TAKING MELATONIN 5 MG TABLET ORALLY BEFORE BEDTIME TAKING SUMATRIPTAN SUCCINATE 4 MG/0.5ML SOLUTION AUTO-INJECTOR 0.5 ML NEEDED SUBCUTANEOUS ONCE DAILY NEEDED TAKING OMEPRAZOLE 20 MG CAPSULE DELAYED RELEASE 1 CAPSULE ORALLY ONCE A DAY TAKING METFORMIN HCL 500 MG TABLET 2 TABLETS ORALLY TWICE A DAY TAKING CYMBALTA 60 MG UNSPECIFIED 1 CAPSULE ORALLY ONCE A DAY, NOTES: DULOXETINE TAKING LIPITOR 40 MG TABLET 1 TABLET ORALLY ONCE A DAY TAKING GABAPENTIN 800 MG TABLET 1 TABLET ORALLY THREE TIMES A DAY TAKING GLIPIZIDE 10 MG TABLET 2 TABLET ORALLY TWICE DAILY TAKING FERROUS SULFATE 325 (65 FE) MG TABLET 1 TABLET ORALLY TWICE DAILY TAKING KETOROLAC TROMETHAMINE 10 MG TABLET 1 TABLET WITH FOOD OR MILK NEEDED ORALLY EVERY 6 HRS NEEDED TAKING POTASSIUM CITRATE ER 15 MEQ (1620 MG) TABLET EXTENDED RELEASE 1 TABLET WITH MEALS ORALLY THREE TIMES A DAY TAKING FLOMAX 0.4 MG CAPSULE 1 CAPSULE ORALLY ONCE A DAY TAKING POTASSIUM CHLORIDE ER 20 MEQ TABLET EXTENDED RELEASE 2 TABLETS WITH FOOD ORALLY ONCE A DAY TAKING PROPRANOLOL HCL ER 60 MG CAPSULE EXTENDED RELEASE 24 HOUR 1 CAPSULE ORALLY ONCE A DAY TAKING LOSARTAN POTASSIUM 25 MG TABLET 1 TABLET ORALLY DAILY TAKING FLOMAX 0.4 MG CAPSULE 1 CAPSULE ORALLY ONCE A DAY TAKING PERCOCET 5-325 MG TABLET 1 TABLET ORALLY EVERY 6 HRS NEEDED FOR PAIN (MDD 4) TAKING TAMSULOSIN HCL 0.4 MG CAPSULE 1 CAPSULE ORALLY ONCE A DAY MEDICATION LIST REVIEWED AND RECONCILED WITH THE PATIENT PAST MEDICAL HISTORY DIABETES MELLITUS HYPERTENSION HYPERLIPIDEMIA DEPRESSION MIGRAINE HEADACHE, OCCASIONAL COMPLEX REGIONAL PAIN SYNDROME (CRPS) HX RENAL CALCULI WITH LITHOTRIPSY POSTMENOPAUSE HISTORY OF VITREOUS DETACHMENT DIFFICULTY WITH GENERAL ANESTHESIA BIAPICAL PLEURAL THICKENING - CHEST CT 08/2015 CHANO ON CPAP IRON DEFICIENCY ANEMIA HISTORY OF H PYLORI INFECTION HISTORY OF CARDIOMEGALY GERD REFUSED PNA VACCINE JANUARY 2016 GAVE, WATERMELON STOMACH PERIPHERAL NEUROPATHY BROKE R FOOT ALLERGIES N.K.D.A. SURGICAL HISTORY APPENDECTOMY HYSTERECTOMY, PARTIAL OVARIAN CYST REMOVED ELBOW SURGERY, RIGHT COLONOSCOPY X 3 09/28/14 CYSTOSCOPY 08/21/15 CYSTO STENT PLACEMENT STENT REMOVED 10/15/1509/2015 CATARACT-RT 08/18/16 ENDOSCOPY 10/11 CATARACT REMOVAL-LT 08/2016 LENS IMPLANT RIGHT 2016 LITHOTRIPSY 03/2018 FAMILY HISTORY FATHER: 46 YRS, [place] MOTHER: 82 YRS, HEART FAILURE SIBLINGS: ALIVE DAUGHTER(S): ALIVE, LUPUS 1 BROTHER(S) , 2 SISTER(S) . 3DAUGHTER(S) - HEALTHY. BROTHER -NM. SOCIAL HISTORY GENERAL: TOBACCO USE ARE YOU A:NONSMOKER NEVER SMOKER BMI CARE GOAL FOLLOW-UP ABOVE NORMAL BMI FOLLOW-UPLIFESTYLE EDUCATION REGARDING DIET ALCOHOL SCREENING DID YOU HAVE A DRINK CONTAINING ALCOHOL IN THE PAST YEAR?NO POINTS0 INTERPRETATIONNEGATIVE RECREATIONAL DRUG USE DRUG USE?NO CAFFEINE CAFFEINE USE?YES 1-2 CUPS COFFEE SEXUAL HX HAD SEX IN THE LAST 12 MONTHS (VAGINAL, ORAL, OR ANAL)?YES WITHMEN ONLY LMP:HYSTER HAVE YOU EVER HAD AN STD?NO HIV / HEP-C SCREENING HIV TEST OFFERED TO PATIENT:YES DATE OFFERED:11/12/2017 TEST ACCEPTED:NO HEP-C TEST OFFERED TO PATIENT:YES DATE OFFERED:11/12/2017 REASON:PATIENT DECLINED TEST ACCEPTED:NO REASON:PATIENT DECLINED BROCHURE PROVIDED TO PATIENTNO PRESYBETERIAN [id number] JEH[employer] WITNESS LANGUAGE NEPALI. EDUCATION LEVEL OF EDUCATION:HIGH SCHOOL LEARNING BARRIERS / SPECIAL NEEDS CHANGE FROM LAST VISIT?NO BARRIERS TO LEARNING?NO HEARING IMPAIRED?NO VISION IMPAIRED?YES COGNITIVELY IMPAIRED?NO :CORRECTIVE LENSES READINESS TO LEARN?YES LEARNING PREFERENCES?NO LEARNING CAPABILITIES PRESENT?YES EMOTIONAL BARRIERS?NO SPECIAL DEVICES?NO FILLER MIXER NEEDED?NO OCCUPATION: UNEMPLOYED. DIET: REGULAR. EXERCISE: NO REGULAR EXERCISE. MARITAL STATUS: . OTHERS AT HOME: SPOUSE. NEW PATIENT PAIN DIARY FROM 0-10, WHAT LEVEL IS YOUR PAIN TODAY?4 PAIN CLINIC PFS, CLERGY, PUBLIC HEALTH REFERRALS PFS REFERRAL NEEDED?NO CLERGY REFERRAL NEEDED?NO PUBLIC HEALTH REFERRAL NEEDED?NO WAS THE PROVIDER NOTIFIED OF ANY PERTINENT INFO?YES HAS THE PATIENT BEEN EDUCATED REGARDING HIS/HER PLAN OF CARE?YES HAS THE PATIENT BEEN EDUCATED REGARDING PAIN, THE RISK FOR PAIN, THE IMPORTANCE OF EFFECTIVE PAIN MANAGEMENT, AND THE PAIN ASSESSMENT PROCESS?YES ADVANCE DIRECTIVE ADVANCE DIRECTIVE DISCUSSED WITH PATIENT:YES DECLINES HCP INFORMATION AT THIS TIME. REVIEWED WITH PATIENT 04/12 18 2391 JS. HOSPITALIZATION/MAJOR DIAGNOSTIC PROCEDURE SURGERIES CHILDBIRTH REVIEW OF SYSTEMS REVIEWED BY: PROVIDER: JANIE FORD MD . CONSTITUTIONAL: ANY CHANGE IN YOUR MEDICAL CONDITION? YES, KIDNEY STONES WITH LITHOTRIPSY PROCEDURE A WEEK AGO . CHILLS NO . FEVER NO . INFECTION: DO YOU HAVE NEW INFECTIONS? NO . DO YOU HAVE HISTORY OF MRSA? NO . MUSCULOSKELETAL: ANY NEW PATTERNS OF PAIN OR NUMBNESS? NO . GASTROENTEROLOGY: ANY NEW CHANGE IN BOWEL CONTROL? NO . GENITOURINARY: ANY NEW CHANGE IN BLADDER CONTROL? NO . IS THERE A CHANCE YOU COULD BE ? NO . HEMATOLOGY/LYMPH: DO YOU TAKE ANY BLOOD THINNERS? (FOR EXAMPLE- COUMADIN, PLAVIX, AGGRENOX, PLATEL, PRADAXA, OR XARELTO) NO . WHEN WAS YOUR LAST DOSE? DATE: TIME: . NEUROLOGY: HAVE YOU FALLEN IN THE PAST 6 MONTHS? NO . ANY NEW EXTREMITY NUMBNESS OR WEAKNESS? NO . CARDIOLOGY: DO YOU HAVE A PACEMAKER OR DEFIBRILLATOR? NO . RESPIRATORY: HAVE YOU BEEN SICK IN THE PAST WEEK? NO . FEVER NO . FLU LIKE SYMPTOMS? NO . COUGH NO . INTEGUMENTARY: DO YOU HAVE ANY RASHES OR OPEN SORES? NO . ALLERGIC/IMMUNO: ARE YOU ALLERGIC TO SHELLFISH OR IV DYE? NO . ANY NEW ALLERGIES? NO . PSYCHIATRIC: DO YOU HAVE THOUGHTS OF HURTING YOURSELF OR SOMEONE ELSE? NO . ARE YOU ABUSED, NEGLECTED, OR IN AN UNSAFE ENVIRONMENT? NO . ENDOCRINOLOGY: ARE YOU DIABETIC? YES . OTHER: DO YOU NEED ANY PRESCRIPTIONS? NO . IF YES, PLEASE LIST: ____ . ANY NEW PROBLEMS WITH YOUR MEDICATIONS? NO . WHEN DID YOU LAST EAT? ____ . WHEN DID YOU LAST DRINK? ____ . WHAT DID YOU LAST DRINK? ____ . NAME OF PERSON DRIVING YOU HOME? ____ . DO YOU HAVE ANY OTHER QUESTIONS OR CONCERNS NO . VITAL SIGNS WT 170.6 LBS, HT 66.5 IN, BMI 27.12 INDEX, BP 132/59 MM HG, HR 80 /MIN, RR 18 /MIN, TEMP 97.0 F, OXYGEN SAT % 99%, SAFE IN ENV? (Y/N) YES, NA INITIALS AW 1544, REVIEWED BY: EDYTA. EXAMINATION GENERAL EXAMINATION: PATIENT IS ALERT O X 3 AND COOPERATIVE. SURGICAL SCAR MEASURING 1.2" OVER THE RIGHT ELBOW AREA. THE PATIENT CAN ONLY BE TOUCHED ABOVE THE ELBOW ON BOTH ARMS DUE TO SEVERE TENDERNESS OVER THE FOREARMS. PATIENT IS UNABLE TO OPEN HER RIGHT HAND. THERE IS CONTRACTURE OVER HER FINGERS. SWELLING AND REDNESS OVER HER FINGERS ON HER RIGHT HAND. 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 INGRAM'S PAIN MANAGEMENT CASE. I WILL SPEAK WITH THE PATIENT'S OCCUPATIONAL HEALTH PHYSICIAN TO BE SURE THAT THE LEFT ARM IS COVERED. I WOULD LIKE THE PATIENT TO CONTINUE USING THE GABAPENTIN FOR NEUROPATHIC PAIN. I WOULD LIKE THE PATIENT TO INCREASE HER CYMBALTA TO 2 TABLETS PER DAY INSTEAD OF 1 FOR THE NEUROPATHIC PAIN. THE PATIENT WILL FOLLOW UP IN 6 TO 8 WEEKS. INSTRUCTIONS WERE GIVEN, QUESTIONS WERE ANSWERED, PATIENT REPORTS UNDERSTANDING AND AGREES WITH THE PLAN. I, GUSTABO HARRIS, DOCUMENTED THE ABOVE INFORMATION ACTING A SCRIBE FOR DR. FORD. I HAVE REVIEWED THE ABOVE DOCUMENT, WRITTEN BY GUSTABO APREDESIBDinh AND I VERIFY THAT IT IS ACCURATE. OTHERS REFILL CYMBALTA UNSPECIFIED, 60 MG, 1 CAPSULE, ORALLY FOR PAIN, BID (WORKERS COMP), 30 DAYS, 60, REFILLS 1, NOTES: DULOXETINE PROCEDURES PN WORKMANS' COMP OPINION IN YOUR OPINION, WAS THE INCIDENT THAT THE PATIENT DESCRIBED THE COMPETENT MEDICAL CAUSE OF THIS INJURY/ILLNESS? YES ARE THE PATIENT'S COMPLAINTS CONSISTENT WITH HIS/HER HISTORY OF THE INJURY/ILLNESS? YES IS THE PATIENT'S HISTORY OF THE INJURY/ILLNESS CONSISTENT WITH YOUR OBJECTIVE FINDING? YES WHAT IS THE PERCENTAGE OF TEMPORARY IMPAIRMENT? TOTAL = 100% IS THE PATIENT WORKING? NO DOCTOR ON SITE: JANIE SHAHID MD PROCEDURE CODES G8427 CURRENT MEDS W/DOSAGES DOCUMENTED G8730 PAIN ASSESS POS TOOL F/U PLAN DOC FA211 ESTABILISHED PATIENT [facility] FACILITY CHARGE DISPOSITION & COMMUNICATION FOLLOW UP 6 WEEKS ELECTRONICALLY SIGNED BY JANIE FORD MD, MD ON 04/27/2018 AT 07:30 PM EST DISCLAIMER : THIS IS A VISIT SUMMARY EXTRACTED FROM THE [employer] CHART. IT IS NOT A COPY OF THE [employer] PROGRESS NOTE. OZZIED
== END ==
LOC: M PAIN 15:45
PROVIDERS: ATTEND Anesthesiology
DX: M79.2 Neuralgia and neuritis, unspecified (principal); E11.42 Type 2 diabetes mellitus with diabetic polyneuropathy; I10 Essential (primary) hypertension; E78.5 Hyperlipidemia, unspecified; F32.9 Major depressive disorder, single episode, unspecified; G43.909 Migraine, unspecified, not intractable, without status migrainosus; G47.33 Obstructive sleep apnea (adult) (pediatric); D50.9 Iron deficiency anemia, unspecified; K21.9 Gastro-esophageal reflux disease without esophagitis; G90.50 Complex regional pain syndrome I, unspecified; Z79.84 Long term (current) use of oral hypoglycemic drugs; Z79.899 Other long term (current) drug therapy; Z78.0 Asymptomatic menopausal state; Z87.442 Personal history of urinary calculi; Z98.41 Cataract extraction status, right eye; Z98.42 Cataract extraction status, left eye

== ENCOUNTER → 2018-04-23 | Outpatient (CLI) | payer MEDICARE | LOC: M SMT 08:26 | DX: N20.0 Calculus of kidney (principal) | CPT/HCPCS: 74018 ==

== ENCOUNTER → 2018-05-05 | Outpatient (CLI) | payer MEDICARE ==
[~2018-05-05] MED LIST changes: +LOSA25TA14 PO; -LOSA25TA33 PO
--- NOTE | 2018-05-05 15:31 | REP ---
Urinary tract sonography: History: Kidney calculi. Comparison sonography July 29, 2016. CT findings: Scanning at the level of the urinary bladder shows smooth bladder juarez, a 319 mL calculated bladder volume, and the presence of emptying ureteral jets on color Doppler interrogation of the bladder lumen bilaterally. Renal cortical echogenicity pattern is normal and contours are smooth on both sides. The right kidney measures 12.5 x 5.1 x 4.8 cm. Left renal dimensions are 11.1 x 5.4 x 5.2 cm. No hydronephrosis is seen on either side. There is an echogenic focus 6 mm in size in the lower pole consistent with a stone. There is an echogenic focus in the renal parenchyma of the left mid kidney which may be a calcification. No mass or cyst is seen. Impression: Probable intrarenal calculus lower pole right kidney. Small scar with parenchymal calcification left mid kidney. No hydronephrosis. Electronically Signed by Delmer Ariza MD 05/05/2018 05:55 P
== END ==
LOC: M SMT 09:06
PROVIDERS: ATTEND Nurse Practitioner Women's Health
DX: N20.0 Calculus of kidney (principal)

== ENCOUNTER → 2018-05-24 | Outpatient (CLI) | payer MEDICARE ==
--- NOTE | 2018-05-24 16:44 | REP ---
Clinical: Nephrolithiasis. Technique: Axial noncontrast images from the lung bases to the pubic symphysis with coronal and sagittal re-formations. Comparison: 03/01/2018. Findings: Evaluation of the urinary tract system again demonstrates a 7 mm nonobstructing calculus in the lower pole right kidney which was previously identified in the renal pelvis. No perinephric stranding, hydroureternephrosis, or obstructing ureteral calculi are identified. Left kidney/ureter appears normal. Phleboliths noted in the left katty pelvis remains stable. Liver, spleen, pancreas, collapsed gallbladder, and bilateral adrenal glands are normal. The enteric system is without obstruction or acute inflammatory process. Pelvis demonstrates normal bladder and evidence for prior hysterectomy. No ascites. No free air. No adenopathy. Abdominal aorta without aneurysm. Musculoskeletal structures without focal osseous abnormality. Impression: 7 mm calculus now identified in the lower pole right kidney without hydronephrosis or perinephric stranding. Electronically Signed by Javon Aleman MD 05/24/2018 04:35 P
== END ==
LOC: M RAD 15:42
PROVIDERS: ATTEND Nurse Practitioner Women's Health
DX: N20.0 Calculus of kidney (principal)

== ENCOUNTER → 2018-06-22 | Outpatient (CLI) | payer MEDICARE ==
[2018-06-22 10:20] LABS: BASO # 0.1 10^3/uL (0.0-0.2); BASO % 0.9 % (0.0-1.0); EOS # 0.1 10^3/uL (0.0-0.50); EOS % 1.9 % (0.0-3.0); HEMATOCRIT 35.9 % (36.0-47.0); HEMOGLOBIN 11.5 g/dl (12.0-15.5); LYMPH # 1.8 10^3/uL (1.5-4.5); LYMPH % 30.5 % (24.0-44.0); MEAN CORPUSCULAR HEMOGLOBIN 31.2 pg (27.0-33.0); MEAN CORPUSCULAR VOLUME 97.3 fl (80.0-96.0); MONO # 0.7 10^3/uL (0.0-0.8); MONO % 11.2 % (0.0-5.0); NEUTROPHILS # 3.2 10^3/uL (1.8-7.7); NEUTROPHILS % 55.2 % (36.0-66.0); PLATELET COUNT, AUTOMATED 272 10^3/uL (150-450); RED BLOOD COUNT 3.69 10^6/uL (4.00-5.40); WHITE BLOOD COUNT 5.8 10^3/uL (4.0-10.0)
[2018-06-22 10:26] LABS: MALB URINE SIEMENS 27.4 MG/L
[2018-06-22 10:40] LABS: HEMOGLOBIN A1c 8.5 %
[2018-06-22 11:04] LABS: BLOOD UREA NITROGEN 8 MG/DL (7-18); CALCIUM LEVEL 8.9 MG/DL (8.8-10.2); CARBON DIOXIDE LEVEL 30 MEQ/L (21-32); CHLORIDE LEVEL 103 MEQ/L (98-107); CREATININE FOR GFR 0.62 MG/DL (0.55-1.30); GLOMERULAR FILTRATION RATE > 60.0 (>45); GLUCOSE, FASTING 156 MG/DL (70-100); POTASSIUM SERUM 4.8 MEQ/L (3.5-5.1); SODIUM LEVEL 141 MEQ/L (136-145)
== END ==
LOC: M LAB 08:17
PROVIDERS: ATTEND Internal Medicine
DX: K31.819 Angiodysplasia of stomach and duodenum without bleeding (principal)

== ENCOUNTER → 2018-07-05 | Outpatient (CLI) | payer OTHER ==
--- NOTE | 2018-07-20 03:42 | ECWPNPC ---
PATIENT NAME: SANTIAGO INGRAM : 1950 GENDER: FEMALE VISIT DATE: 07/05/2018 DISCHARGE DATE: 07/05/18 1239 VISIT LOCKED DATE TIME: PHYSICIAN: JANIE FORD MD RESOURCE: JANIE FORD MD REASON FOR APPOINTMENT 1. W/C ARMS HISTORY OF PRESENT ILLNESS HISTORY OF PRESENT ILLNESS: PAIN THE PATIENT DESCRIBES THE PAIN... 67 YEAR OLD FEMALE PATIENT WITH A HISTORY OF CHRONIC ARM PAIN. THE PATIENT DESCRIBES THE PAIN ACHING, BURNING, INTERMITTENT PAIN THAT OCCURS MOSTLY DURING THE DAY WITH A PAIN SCORE OF 4-7/10 DEPENDING ON PHYSICAL ACTIVITY. 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 THE PATIENT STATES THAT SHE CONTINUED TO WORK AT FIRST, BUT WAS THEN TAKEN OUT OF WORK. THE PATIENT STATES HER PAIN ORIGINALLY STARTED IN HER RIGHT ARM, SO SHE HAD RIGHT ELBOW SURGERY BUT IT DID NOT HELP THE PAIN. THE PATIENT SAYS THAT YEARS AFTER THE ACCIDENT SHE STARTED TO FEEL THE SAME SYMPTOMS IN HER LEFT ARM WELL. PATIENT STATES SHE HAS TRIED GABAPENTIN AND CYMBALTA IN THE PAST AND THE CYMBALTA WORKS BETTER. PATIENT DENIES UNEXPLAINABLE WEIGHT LOSS, FEVER, CHILLS, NEW CHANGES ON HER URINARY OR BOWEL CONTROL. FALL RISK SCREENING: SCREENING : NO FALLS IN THE PAST YEAR. CURRENT MEDICATIONS TAKING GABAPENTIN 800 MG TABLET 1 TABLET ORALLY THREE TIMES A DAY TAKING CYMBALTA 60 MG UNSPECIFIED 1 CAPSULE ORALLY FOR PAIN BID (WORKERS COMP), NOTES: DULOXETINE TAKING AdECN ULTRA SYSTEM W/DEVICE KIT CHECK BLOOD SUGARS ONCE DAILY EXTERNAL DAILY DX: E11.8 TAKING OktogoUCH LANCETS - MISCELLANEOUS CHECK BLOOD SUGARS ONCE DAILY SUBCUTANEOUSLY DAILY TAKING AdECN ULTRA BLUE - STRIP CHECK BLOOD SUGARS ONCE DAILY IN VITRO DAILY DX: E11.8 TAKING GLUCOSE BLOOD ACCHUCHEK STRIP TEST STRIPS IN VITRO FSBS DAILY TAKING TYLENOL PM EXTRA STRENGTH 500-25 MG TABLET 1 TABLET AT BEDTIME NEEDED ORALLY ONCE A DAY TAKING MELATONIN 5 MG TABLET ORALLY BEFORE BEDTIME TAKING OMEPRAZOLE 20 MG CAPSULE DELAYED RELEASE 1 CAPSULE ORALLY ONCE A DAY TAKING FERROUS SULFATE 325 (65 FE) MG TABLET 1 TABLET ORALLY TWICE DAILY TAKING PROPRANOLOL HCL ER 60 MG CAPSULE EXTENDED RELEASE 24 HOUR 1 CAPSULE ORALLY ONCE A DAY TAKING LOSARTAN POTASSIUM 25 MG TABLET 1 TABLET ORALLY DAILY TAKING LIPITOR 40 MG TABLET 1 TABLET ORALLY ONCE A DAY TAKING SUMATRIPTAN SUCCINATE 4 MG/0.5ML SOLUTION AUTO-INJECTOR 0.5 ML NEEDED SUBCUTANEOUS ONCE DAILY NEEDED TAKING GLIPIZIDE 10 MG TABLET 2 TABLET ORALLY TWICE DAILY TAKING METFORMIN HCL 500 MG TABLET 2 TABLETS ORALLY TWICE A DAY TAKING TRULICITY 0.75 MG/0.5ML SOLUTION PEN-INJECTOR DIRECTED SUBCUTANEOUS WEEKLY NOT-TAKING FLOMAX 0.4 MG CAPSULE 1 CAPSULE ORALLY ONCE A DAY NOT-TAKING KETOROLAC TROMETHAMINE 10 MG TABLET 1 TABLET WITH FOOD OR MILK NEEDED ORALLY EVERY 6 HRS NEEDED NOT-TAKING POTASSIUM CHLORIDE ER 20 MEQ TABLET EXTENDED RELEASE 2 TABLETS WITH FOOD ORALLY ONCE A DAY NOT-TAKING PERCOCET 5-325 MG TABLET 1 TABLET ORALLY EVERY 6 HRS NEEDED FOR PAIN (MDD 4) MEDICATION LIST REVIEWED AND RECONCILED WITH THE PATIENT PAST MEDICAL HISTORY DIABETES MELLITUS HYPERTENSION HYPERLIPIDEMIA DEPRESSION MIGRAINE HEADACHE, OCCASIONAL COMPLEX REGIONAL PAIN SYNDROME (CRPS) HX RENAL CALCULI WITH LITHOTRIPSY POSTMENOPAUSE HISTORY OF VITREOUS DETACHMENT DIFFICULTY WITH GENERAL ANESTHESIA BIAPICAL PLEURAL THICKENING - CHEST CT 08/2015 CHANO ON CPAP IRON DEFICIENCY ANEMIA HISTORY OF H PYLORI INFECTION HISTORY OF CARDIOMEGALY GERD REFUSED PNA VACCINE JANUARY 2016 GAVE, WATERMELON STOMACH PERIPHERAL NEUROPATHY BROKE R FOOT ALLERGIES N.K.D.A. SURGICAL HISTORY APPENDECTOMY HYSTERECTOMY, PARTIAL OVARIAN CYST REMOVED ELBOW SURGERY, RIGHT COLONOSCOPY X 3 09/28/14 CYSTOSCOPY 08/21/15 CYSTO STENT PLACEMENT STENT REMOVED 10/15/1509/2015 CATARACT-RT 08/18/16 ENDOSCOPY 10/11 CATARACT REMOVAL-LT 08/2016 LENS IMPLANT RIGHT 2016 LITHOTRIPSY 03/2018 FAMILY HISTORY FATHER: 46 YRS, [place] MOTHER: 82 YRS, HEART FAILURE SIBLINGS: ALIVE DAUGHTER(S): ALIVE, LUPUS 1 BROTHER(S) , 2 SISTER(S) . 3DAUGHTER(S) - HEALTHY. BROTHER -AL. SOCIAL HISTORY GENERAL: TOBACCO USE ARE YOU A:NONSMOKER NEVER SMOKER LATEX QUESTIONNAIRE LATEX ALLERGY : HAVE YOU EVER DEVELOPED ANY TYPE OF REACTION AFTER HANDLING LATEX PRODUCTS SUCH RUBBER GLOVES, CONDOMS, DIAPHRAGMS, BALLOONS, SOCKS, OR UNDERWEAR?NO LATEX ALLERGY : HAVE YOU EVER DEVELOPED ANY TYPE OF REACTION DURING OR AFTER DENTAL APPOINTMENT, VAGINAL/RECTAL EXAMINATION, SURGICAL PROCEDURE, OR ANY OTHER EXPOSURE?NO LATEX RISK : HAVE YOU EVER HAD ANY DIFFICULTY BREATHING OR HIVES AFTER EATING OR HANDLING ANY FRUITS, OR VEGETABLES; SUCH KIWI, BANANAS, STONE FRUITS, OR CHESTNUTSNO LATEX RISK : DO YOU HAVE A PREVIOUS PERSONAL HISTORY OF MORE THAN NINE SURGERIES, SPINA BIFIDA, OR REPEATED CATHERTIZATIONS? NO LATEX RISK : ARE YOU FREQUENTLY EXPOSED TO LATEX PRODUCTS IN YOUR OCCUPATION?NO DATE ASKED : 07/05/2018 BMI CARE GOAL FOLLOW-UP ABOVE NORMAL BMI FOLLOW-UPLIFESTYLE EDUCATION REGARDING DIET ALCOHOL SCREENING DID YOU HAVE A DRINK CONTAINING ALCOHOL IN THE PAST YEAR?NO POINTS0 INTERPRETATIONNEGATIVE RECREATIONAL DRUG USE DRUG USE?NO CAFFEINE CAFFEINE USE?YES 1-2 CUPS COFFEE SEXUAL HX HAD SEX IN THE LAST 12 MONTHS (VAGINAL, ORAL, OR ANAL)?YES WITHMEN ONLY LMP:HYSTER HAVE YOU EVER HAD AN STD?NO HIV / HEP-C SCREENING HIV TEST OFFERED TO PATIENT:YES DATE OFFERED:11/12/2017 TEST ACCEPTED:NO HEP-C TEST OFFERED TO PATIENT:YES DATE OFFERED:11/12/2017 REASON:PATIENT DECLINED TEST ACCEPTED:NO REASON:PATIENT DECLINED BROCHURE PROVIDED TO PATIENTNO ALEVISM [id number] TA[employer]IST LANGUAGE MALAY. EDUCATION LEVEL OF EDUCATION:HIGH SCHOOL LEARNING BARRIERS / SPECIAL NEEDS CHANGE FROM LAST VISIT?NO BARRIERS TO LEARNING?NO HEARING IMPAIRED?NO VISION IMPAIRED?YES COGNITIVELY IMPAIRED?NO :CORRECTIVE LENSES READINESS TO LEARN?YES LEARNING PREFERENCES?NO LEARNING CAPABILITIES PRESENT?YES EMOTIONAL BARRIERS?NO SPECIAL DEVICES?NO BROADCAST PRODUCER NEEDED?NO OCCUPATION: UNEMPLOYED. DIET: REGULAR. EXERCISE: NO REGULAR EXERCISE. MARITAL STATUS: . OTHERS AT HOME: SPOUSE. NEW PATIENT PAIN DIARY FROM 0-10, WHAT LEVEL IS YOUR PAIN TODAY?4 PAIN CLINIC PFS, CLERGY, PUBLIC HEALTH REFERRALS PFS REFERRAL NEEDED?NO CLERGY REFERRAL NEEDED?NO PUBLIC HEALTH REFERRAL NEEDED?NO WAS THE PROVIDER NOTIFIED OF ANY PERTINENT INFO?YES HAS THE PATIENT BEEN EDUCATED REGARDING HIS/HER PLAN OF CARE?YES HAS THE PATIENT BEEN EDUCATED REGARDING PAIN, THE RISK FOR PAIN, THE IMPORTANCE OF EFFECTIVE PAIN MANAGEMENT, AND THE PAIN ASSESSMENT PROCESS?YES ADVANCE DIRECTIVE ADVANCE DIRECTIVE DISCUSSED WITH PATIENT:YES DECLINES HCP INFORMATION AT THIS TIME. REVIEWED WITH PATIENT 04/12 18 8133 JS. HOSPITALIZATION/MAJOR DIAGNOSTIC PROCEDURE SURGERIES CHILDBIRTH REVIEW OF SYSTEMS REVIEWED BY: PROVIDER: JANIE FORD MD . CONSTITUTIONAL: ANY CHANGE IN YOUR MEDICAL CONDITION? NO . CHILLS NO . FEVER NO . INFECTION: DO YOU HAVE NEW INFECTIONS? NO . DO YOU HAVE HISTORY OF MRSA? NO . MUSCULOSKELETAL: ANY NEW PATTERNS OF PAIN OR NUMBNESS? NO . GASTROENTEROLOGY: ANY NEW CHANGE IN BOWEL CONTROL? NO . GENITOURINARY: ANY NEW CHANGE IN BLADDER CONTROL? NO . IS THERE A CHANCE YOU COULD BE ? NO . HEMATOLOGY/LYMPH: DO YOU TAKE ANY BLOOD THINNERS? (FOR EXAMPLE- COUMADIN, PLAVIX, AGGRENOX, PLATEL, PRADAXA, OR XARELTO) NO . WHEN WAS YOUR LAST DOSE? DATE: TIME: . NEUROLOGY: HAVE YOU FALLEN IN THE PAST 12 MONTHS? NO . ANY NEW EXTREMITY NUMBNESS OR WEAKNESS? NO . CARDIOLOGY: DO YOU HAVE A PACEMAKER OR DEFIBRILLATOR? NO . RESPIRATORY: HAVE YOU BEEN SICK IN THE PAST WEEK? NO . FEVER NO . FLU LIKE SYMPTOMS? NO . COUGH NO . INTEGUMENTARY: DO YOU HAVE ANY RASHES OR OPEN SORES? NO . ALLERGIC/IMMUNO: ARE YOU ALLERGIC TO IV DYE? NO . ANY NEW ALLERGIES? NO . PSYCHIATRIC: DO YOU HAVE THOUGHTS OF HURTING YOURSELF OR SOMEONE ELSE? NO . ARE YOU ABUSED, NEGLECTED, OR IN AN UNSAFE ENVIRONMENT? NO . ENDOCRINOLOGY: ARE YOU DIABETIC? YES, DOES NOT CHECK DAILY BLOOD SUGAR . OTHER: DO YOU NEED ANY PRESCRIPTIONS? YES, NEEDS REFILL OF CYMBALTA. . IF YES, PLEASE LIST: ____ . ANY NEW PROBLEMS WITH YOUR MEDICATIONS? NO . WHEN DID YOU LAST EAT? ____ . WHEN DID YOU LAST DRINK? ____ . WHAT DID YOU LAST DRINK? ____ . NAME OF PERSON DRIVING YOU HOME? ____ . DO YOU HAVE ANY OTHER QUESTIONS OR CONCERNS NO . VITAL SIGNS WT 177.2 LBS, HT 66.5 IN, BMI 28.17 INDEX, BP 140/76 MM HG, HR 97 /MIN, RR 18 /MIN, TEMP 97.2 F, OXYGEN SAT % 99%, SAFE IN ENV? (Y/N) Y, NA INITIALS AW 1051, REVIEWED BY: EDYTA. EXAMINATION GENERAL EXAMINATION: PATIENT IS ALERT O X 3 AND COOPERATIVE. SURGICAL SCAR MEASURING 1.2" OVER THE RIGHT ELBOW. THE PATIENT CAN ONLY BE TOUCHED ABOVE THE ELBOW ON BOTH ARMS DUE TO SEVERE TENDERNESS OVER THE FOREARMS. 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 INGRAM'S PAIN MANAGEMENT CASE. THE PATIENT IS DOING VERY WELL WITH CYMBALTA. I WOULD LIKE THE PATIENT TO CONTINUE USING THE GABAPENTIN AND CYMBALTA FOR THE NEUROPATHIC PAIN. THE PATIENT WILL FOLLOW UP WITH ME IN 3 MONTHS. INSTRUCTIONS WERE GIVEN, QUESTIONS WERE ANSWERED, PATIENT REPORTS UNDERSTANDING AND AGREES WITH THE PLAN. I, SABINO COVARRUBIAS, DOCUMENTED THE ABOVE INFORMATION ACTING A SCRIBE FOR DR. FORD. I HAVE REVIEWED THE ABOVE DOCUMENT, WRITTEN BY SABINO PAREDESIBDinh AND I VERIFY THAT IT IS ACCURATE.. OTHERS REFILL CYMBALTA UNSPECIFIED, 60 MG, 1 CAPSULE, ORALLY FOR PAIN, BID (WORKERS COMP), 30 DAYS, 60, REFILLS 1, NOTES: DULOXETINE PROCEDURES PN WORKMANS' COMP OPINION IN YOUR OPINION, WAS THE INCIDENT THAT THE PATIENT DESCRIBED THE COMPETENT MEDICAL CAUSE OF THIS INJURY/ILLNESS? YES ARE THE PATIENT'S COMPLAINTS CONSISTENT WITH HIS/HER HISTORY OF THE INJURY/ILLNESS? YES IS THE PATIENT'S HISTORY OF THE INJURY/ILLNESS CONSISTENT WITH YOUR OBJECTIVE FINDING? YES WHAT IS THE PERCENTAGE OF TEMPORARY IMPAIRMENT? TOTAL = 100% IS THE PATIENT WORKING? NO DOCTOR ON SITE: JANIE SHAHID MD PROCEDURE CODES FA211 ESTABILISHED PATIENT [facility] FACILITY CHARGE G8427 CURRENT MEDS W/DOSAGES DOCUMENTED G8730 PAIN ASSESS POS TOOL F/U PLAN DOC DISPOSITION & COMMUNICATION FOLLOW UP F/U 3 MOS-WC ELECTRONICALLY SIGNED BY JANIE FORD MD, MD ON 07/19/2018 AT 06:05 PM EDT DISCLAIMER : THIS IS A VISIT SUMMARY EXTRACTED FROM THE [employer] CHART. IT IS NOT A COPY OF THE [employer] PROGRESS NOTE. MTDD
== END ==
LOC: M PAIN 11:00
PROVIDERS: ATTEND Anesthesiology
DX: M79.2 Neuralgia and neuritis, unspecified (principal); M79.601 Pain in right arm; M79.602 Pain in left arm; G89.29 Other chronic pain; E11.42 Type 2 diabetes mellitus with diabetic polyneuropathy; I10 Essential (primary) hypertension; E78.5 Hyperlipidemia, unspecified; F32.9 Major depressive disorder, single episode, unspecified; G43.909 Migraine, unspecified, not intractable, without status migrainosus; G47.33 Obstructive sleep apnea (adult) (pediatric); K21.9 Gastro-esophageal reflux disease without esophagitis; Z79.84 Long term (current) use of oral hypoglycemic drugs; Z79.899 Other long term (current) drug therapy

== ENCOUNTER 2018-08-24 10:25 | Emergency (ER) | payer MEDICARE, OTHER ==
[~2018-08-24] VITALS: Ht 170.2 cm; Wt 76.1 kg
[~2018-08-24 10:25] MED LIST changes: +GLYB-147 PO; -GLYB5TA PO; +HYDR-3715 PO; -NORCOTAB PO
[2018-08-24] MEDS ORDERED: GLIP10TA6 (10:34)
[2018-08-24] MEDS ORDERED: TRUL10IN (10:34)
[2018-08-24] MEDS ORDERED: KETO10TAB (10:34)
[2018-08-24] MEDS ORDERED: NS 1,000 ML IV SCH (10:35)
[2018-08-24] MEDS ORDERED: KETOROLAC 30 MG/ML VIAL (J1885) IV ONE (10:45)
[2018-08-24] MEDS ORDERED: ONDANSETRON 4MG/2ML VIAL (J2405) IV ONE (10:45)
[2018-08-24 11:08] LABS: BASO # 0.1 10^3/uL (0.0-0.2); BASO % 0.9 % (0.0-1.0); EOS # 0.2 10^3/uL (0.0-0.50); EOS % 2.6 % (0.0-3.0); HEMOGLOBIN 12.1 g/dl (12.0-15.5); LYMPH # 1.8 10^3/uL (1.5-4.5); LYMPH % 28.3 % (24.0-44.0); MEAN CORPUSCULAR HEMOGLOBIN 31.8 pg (27.0-33.0); MEAN CORPUSCULAR HGB CONC 32.7 g/dl (32.0-36.5); MEAN CORPUSCULAR VOLUME 97.4 fl (80.0-96.0); MONO # 0.7 10^3/uL (0.0-0.8); MONO % 10.1 % (0.0-5.0); NEUTROPHILS # 3.7 10^3/uL (1.8-7.7); NEUTROPHILS % 57.8 % (36.0-66.0); PLATELET COUNT, AUTOMATED 261 10^3/uL (150-450); WHITE BLOOD COUNT 6.4 10^3/uL (4.0-10.0)
--- NOTE | 2018-08-24 11:40 | REP ---
CT ABDOMEN AND PELVIS WITHOUT IV CONTRAST: CT abdomen and pelvis performed without oral or IV contrast. Sagittal and coronary reconstruction images are performed. COMPARISON: 05/24/2018. Visualized lung bases demonstrate no infiltrate. The liver, spleen, adrenals, and pancreas are grossly unremarkable. There is a calculus in the right renal pelvis measuring 6 mm in diameter with mild right hydronephrosis. There is no left nephrolithiasis or hydronephrosis. There is no abdominal aortic aneurysm. There is no adenopathy. There is no free air or free fluid. No bowel wall thickening is seen. The patient appears to have had a hysterectomy. The urinary bladder is not well distended. No gross bladder calculus is seen. IMPRESSION: There is a 6 mm calculus in the right renal pelvis. There is right hydronephrosis. Electronically Signed by Nj Shepherd MD 08/25/2018 04:34 P
[2018-08-24 11:41] LABS: ALBUMIN 4.2 GM/DL (3.2-5.2); ALT/SGPT 56 U/L (12-78); BILIRUBIN,DIRECT 0.1 MG/DL (0.0-0.2); BILIRUBIN,TOTAL 0.6 MG/DL (0.2-1.0); BLOOD UREA NITROGEN 11 MG/DL (7-18); CALCIUM LEVEL 8.8 MG/DL (8.8-10.2); CARBON DIOXIDE LEVEL 30 MEQ/L (21-32); CHLORIDE LEVEL 105 MEQ/L (98-107); CREATININE FOR GFR 0.69 MG/DL (0.55-1.30); GLOMERULAR FILTRATION RATE > 60.0 (>45); GLUCOSE, FASTING 185 MG/DL (70-100); POTASSIUM SERUM 3.6 MEQ/L (3.5-5.1); SODIUM LEVEL 138 MEQ/L (136-145); TOTAL PROTEIN 7.3 GM/DL (6.4-8.2)
[2018-08-24] MEDS ORDERED: CIPR-249 PO (12:46)
[2018-08-24] MEDS ORDERED: FLOM0.4C39 PO (12:46)
[2018-08-24 12:51] VITALS: BP 148/70
== END 2018-08-24 13:37 | disposition home or self-care (01) ==
LOC: M ED 10:25
DX: N20.0 Calculus of kidney (principal); E11.9 Type 2 diabetes mellitus without complications; I10 Essential (primary) hypertension; F32.9 Major depressive disorder, single episode, unspecified; Z87.442 Personal history of urinary calculi; Z79.899 Other long term (current) drug therapy; Z79.84 Long term (current) use of oral hypoglycemic drugs
CPT/HCPCS: 36415; 74176; 80048; 80076; 81001; 85025; 87086; 96361; 96374; 96375; 99284; J1885; J2405

== ENCOUNTER → 2018-08-27 | Outpatient (CLI) | payer MEDICARE ==
[~2018-08-27] MED LIST changes: +CIPR-249 PO; +GLIP10TA6; +KETO10TAB; +TAMS1CAP17; +TRUL10IN
[2018-08-27 09:48] LABS: INR 0.87; PROTHROMBIN TIME 11.9 SECONDS (12.1-14.4)
[2018-08-27 09:49] LABS: PARTIAL THROMBOPLASTIN TIME 33.9 SECONDS (25.4-37.6)
== END ==
LOC: M LAB 08:54
PROVIDERS: ATTEND Nurse Practitioner Women's Health
DX: Z01.818 Encounter for other preprocedural examination (principal); N20.0 Calculus of kidney
CPT/HCPCS: 36415; 85610; 85730; G0463

== ENCOUNTER 2018-09-02 06:21 | Day surgery (SDC) | payer MEDICARE ==
[~2018-09-02] VITALS: Ht 170.2 cm; Wt 75.7 kg
[~2018-09-02 06:21] MED LIST changes: +LR 1,000 ML IV SCH; -TAMS1CAP17
[2018-09-02] MEDS ORDERED: fentaNYL 100 MCG/2 ML INJECTION (J3010) As Ordered ONE (07:16)
[2018-09-02] MEDS ORDERED: LIDOCAINE 2% INJ 100 MG/5 ML SDV (FOR ANES.) As Ordered ONE (07:16)
[2018-09-02] MEDS ORDERED: MIDAZOLAM INJ 2 MG/2 ML VIAL (J2250) As Ordered ONE (07:16)
[2018-09-02] MEDS ORDERED: PROPOFOL 500 MG/50 ML VIAL As Ordered ONE (07:16)
--- NOTE | 2018-09-02 08:07 | ROOPDOC ---
[facility] Report Of Operation Report of Operation DATE OF PROCEDURE: 09/02/18 PREPROCEDURE DIAGNOSIS: Right kidney stone. POSTPROCEDURE DIAGNOSIS: Right kidney stone. PROCEDURE: Right extracorporeal shock wave lithotripsy. SURGEON: Alonso Aleman MD BINDER AND WRAPPER PACKER: None ANESTHESIA: MAC. OPERATIVE INDICATIONS: This is a 67-year-old female who on recent CAT scan was found to have an approximately 6 mm right ureteropelvic junction stone. She was brought to the operating room today for the above-listed procedure. DESCRIPTION OF PROCEDURE: The patient was brought to the operating room where MAC anesthesia was administered. Prophylactic antibiotics were infused. She was then placed in the supine position in preparation for a right-sided extracorporeal shock wave lithotripsy. Fluoroscopy was utilized to monitor stone position and fragmentation throughout the procedure. Shock waves were then delivered to the right-sided kidney stone, ungated. There were no arrhythmias. The stone did appear to fragment well. After 2500 shocks, the procedure was concluded. The patient was then awakened from anesthesia and transported to the recovery room in stable condition. Estimated blood loss: 0 mL. Complications: None. Specimens: None. Plan: The patient will followup in the clinic in a few weeks with imaging prior to assess for residual stone burden. ALONSO ALEMAN MD September 02, 2018 08:07
[2018-09-02 08:37] VITALS: BP 129/62
--- NOTE | 2018-09-02 11:13 | REP ---
KUB: Single view. HISTORY: Kidney stone. COMPARISON STUDY: April 23, 2018. FINDINGS: There are phleboliths bilaterally in the pelvis. There is a oval-shaped calcific opacity 7 mm in diameter projecting on the upper pole cortex of the left kidney on today's radiograph. This calcification is seen on recent CT study to be vascular calcification in the splenic artery. There is a 7 mm calcific density projecting over the right kidney. This calcification was in the right renal pelvis at the time of the CT study of August 24, 2018. IMPRESSION: Upper tract calculus noted right kidney. Electronically Signed by Delmer Ariza MD 09/02/2018 01:07 P
== END 2018-09-02 09:10 | disposition home or self-care (01) ==
LOC: M SDC 06:21
PROVIDERS: ATTEND Urology
DX: N20.0 Calculus of kidney (principal); I10 Essential (primary) hypertension; E78.5 Hyperlipidemia, unspecified; E11.9 Type 2 diabetes mellitus without complications; G47.30 Sleep apnea, unspecified; K21.9 Gastro-esophageal reflux disease without esophagitis; F32.9 Major depressive disorder, single episode, unspecified; F41.9 Anxiety disorder, unspecified; J45.909 Unspecified asthma, uncomplicated; Z79.899 Other long term (current) drug therapy; Z79.84 Long term (current) use of oral hypoglycemic drugs
CPT/HCPCS: 50590; 74018; J0690

== ENCOUNTER 2018-09-06 15:28 | Emergency (ER) | payer MEDICARE ==
[~2018-09-06] VITALS: Ht 170.2 cm; Wt 74.5 kg
[~2018-09-06 15:28] MED LIST changes: -LR 1,000 ML IV SCH
[2018-09-06] MEDS ORDERED: TAMS1CAP17 (15:40)
[2018-09-06] MEDS ORDERED: NS 1,000 ML IV SCH (16:35)
[2018-09-06 16:48] LABS: BASO # 0.1 10^3/uL (0.0-0.2); BASO % 0.7 % (0.0-1.0); EOS # 0.2 10^3/uL (0.0-0.50); EOS % 2.8 % (0.0-3.0); HEMATOCRIT 37.4 % (36.0-47.0); HEMOGLOBIN 12.4 g/dl (12.0-15.5); LYMPH % 28.8 % (24.0-44.0); MEAN CORPUSCULAR HEMOGLOBIN 31.2 pg (27.0-33.0); MEAN CORPUSCULAR HGB CONC 33.2 g/dl (32.0-36.5); MONO # 0.8 10^3/uL (0.0-0.8); MONO % 11.2 % (0.0-5.0); NEUTROPHILS # 3.8 10^3/uL (1.8-7.7); NEUTROPHILS % 56.2 % (36.0-66.0); PLATELET COUNT, AUTOMATED 311 10^3/uL (150-450); RED BLOOD COUNT 3.98 10^6/uL (4.00-5.40); WHITE BLOOD COUNT 6.8 10^3/uL (4.0-10.0)
[2018-09-06 16:58] LABS: INR 0.87; PROTHROMBIN TIME 11.9 SECONDS (12.1-14.4)
[2018-09-06 16:59] LABS: PARTIAL THROMBOPLASTIN TIME 35.9 SECONDS (25.4-37.6)
[2018-09-06 17:19] LABS: ALBUMIN 4.2 GM/DL (3.2-5.2); ALT/SGPT 46 U/L (12-78); BILIRUBIN,DIRECT < 0.1 MG/DL (0.0-0.2); BILIRUBIN,TOTAL 0.3 MG/DL (0.2-1.0); BLOOD UREA NITROGEN 10 MG/DL (7-18); CARBON DIOXIDE LEVEL 28 MEQ/L (21-32); CHLORIDE LEVEL 102 MEQ/L (98-107); CPK CREATINE PHOSPHOKINASE 75 U/L (26-192); GLOMERULAR FILTRATION RATE > 60.0 (>45); GLUCOSE, FASTING 197 MG/DL (70-100); LIPASE 122 U/L (73-393); MB/CK RELATIVE INDEX 1.47 (< OR =4); POTASSIUM SERUM 3.8 MEQ/L (3.5-5.1); SODIUM LEVEL 138 MEQ/L (136-145); TOTAL PROTEIN 7.2 GM/DL (6.4-8.2); TROPONIN I < 0.02 NG/ML (< 0.10)
--- NOTE | 2018-09-06 17:25 | REP ---
Chest two views HISTORY: Dizziness Comparison: 03/09/2018 The lungs are clear. The heart is upper limits of normal in size. The pulmonary vasculature is normal in appearance. The bony structure is intact. IMPRESSION: No acute disease. Electronically Signed by Billy Sherman MD 09/06/2018 05:16 P
--- NOTE | 2018-09-06 17:55 | REP ---
CT ABDOMEN AND PELVIS: HISTORY: Bilateral flank pain. COMPARISON: 08/24/2018 The gallbladder is contracted. The liver, pancreas, spleen, adrenal glands and kidneys are normal in appearance. There is no nephrolithiasis or hydroureter. There is no mass adenopathy or free fluid. The visualized lungs are clear. The patient is status-post hysterectomy. The urinary bladder is normal in appearance. Minimal degenerative change is present in the spine. IMPRESSION:1. The gallbladder is contracted. 2. The patient is status-post hysterectomy. Electronically Signed by Billy Sherman MD 09/06/2018 05:57 P
[2018-09-06] MEDS ORDERED: DOXYCYCLINE HYCLATE 100 MG TAB PO ONE (18:00)
[2018-09-06 19:25] VITALS: BP 140/73
--- NOTE | 2018-09-07 07:20 | ECGEPIP ---
Stationary ECG Study [facility] - ED Test Date: 2018-09-06 Pat Name: SANTIAGO INGRAM Department: Room: - Gender: F Putty Glazer: trevon : 1950 Requested By: ANITRA Pierce Order Number: [id number] Reading MD: Sylvie Jhaveri Measurements Intervals [place] Rate: 70 P: 46 AL: 157 QRS: -11 QRSD: 90 T: 47 QT: 383 QTc: 414 Interpretive Statements SINUS RHYTHM POSSIBLE LEFT ATRIAL ENLARGEMENT MINIMAL ST DEPRESSION Electronically Signed On 09-07-2018 7:20:12 EDT by Sylvie Jhaveri
== END 2018-09-06 19:27 | disposition home or self-care (01) ==
LOC: M ED 15:28
DX: R31.9 Hematuria, unspecified (principal); Z98.890 Other specified postprocedural states; S20.469A Insect bite (nonvenomous) of unspecified back wall of thorax, initial encounter; W57.XXXA Bitten or stung by nonvenomous insect and other nonvenomous arthropods, initial encounter; Y92.89 Other specified places as the place of occurrence of the external cause; R42 Dizziness and giddiness; Z91.81 History of falling; E11.9 Type 2 diabetes mellitus without complications; I11.9 Hypertensive heart disease without heart failure; F32.9 Major depressive disorder, single episode, unspecified; G43.909 Migraine, unspecified, not intractable, without status migrainosus; K21.9 Gastro-esophageal reflux disease without esophagitis; D50.9 Iron deficiency anemia, unspecified; E78.9 Disorder of lipoprotein metabolism, unspecified; Z79.899 Other long term (current) drug therapy; Z79.84 Long term (current) use of oral hypoglycemic drugs

== ENCOUNTER → 2018-09-07 | Outpatient (REF) | payer MEDICARE ==
[~2018-09-07] MED LIST changes: +TAMS1CAP17
== END ==
LOC: M SFHCPLAZ 14:01
PROVIDERS: ATTEND Family Medicine
DX: S30.860D Insect bite (nonvenomous) of lower back and pelvis, subsequent encounter (principal)

== ENCOUNTER → 2018-09-23 | Outpatient (CLI) | payer MEDICARE ==
[~2018-09-23] MED LIST changes: -DULO1CAP3 PO; +DULO1CAP6 PO; -OMEP20CA3 PO; +OMEP20CA4 PO
--- NOTE | 2018-09-23 15:09 | REP ---
KUB, ONE VIEW: HISTORY: Kidney stones. COMPARISON: 04/23/2018. Air is present in small and large intestine. There are no air fluid levels or dilated loops of intestine. There is no pneumoperitoneum. There is no definite nephrocalcinosis. IMPRESSION: 1. Nonspecific bowel gas pattern. 2. There is no definite nephrocalcinosis. Electronically Signed by Billy Sherman MD 09/23/2018 03:27 P
[2018-10-01 00:08] LABS: CA Oxalate Dihy 25 % (.); COMMENT Note: (.); Ca Ox Monohydrate 65 % (.)
== END ==
LOC: M SMT 09:54
PROVIDERS: ATTEND Nurse Practitioner Women's Health
DX: N20.0 Calculus of kidney (principal)

== ENCOUNTER → 2018-09-23 | Outpatient (REF) | payer MEDICARE ==
[~2018-09-23] MED LIST changes: +DULO1CAP3 PO; -DULO1CAP6 PO; +OMEP20CA3 PO; -OMEP20CA4 PO
[2018-09-23 18:38] LABS: APPEARANCE, URINE HAZY (CLEAR); BACTERIA, URINE AUTO NEGATIVE (NEGATIVE); BILIRUBIN, URINE AUTO NEGATIVE (NEGATIVE); BLOOD, URINE BLOOD NEGATIVE (NEGATIVE); CALCIUM OXALATE CRYSTALS MODERATE; COLOR, URINE YELLOW (YELLOW); GLUCOSE, URINE (UA) AUTO 1+ mg/dL (NEGATIVE); KETONE, URINE AUTO NEGATIVE (NEGATIVE); LEUKOCYTE ESTERASE, URINE AUTO 1+ (NEGATIVE); MUCUS, URINE SMALL (NEGATIVE); NITRITE, URINE AUTO NEGATIVE (NEGATIVE); PROTEIN, URINE AUTO NEGATIVE (NEGATIVE); RBC, URINE AUTO 3 /HPF (0-3); SPECIFIC GRAVITY URINE AUTO 1.019 (1.002-1.035); SQUAMOUS EPITHELIAL CELL UR AU 1 /HPF (0-6); UROBILINOGEN, URINE AUTO 0.2 mg/dL (0.0-2.0); WBC, URINE AUTO 8 /HPF (0-3)
== END ==
LOC: M SMT 17:07
PROVIDERS: ATTEND Nurse Practitioner Women's Health
DX: N20.0 Calculus of kidney (principal)

== ENCOUNTER → 2018-10-01 | Outpatient (CLI) | payer MEDICARE ==
--- NOTE | 2018-10-11 00:54 | ECWPNPC ---
PATIENT NAME: SANTIAGO INGRAM : 1950 GENDER: FEMALE VISIT DATE: 10/01/2018 DISCHARGE DATE: 10/01/18915 VISIT LOCKED DATE TIME: PHYSICIAN: JANIE FORD MD RESOURCE: JANIE FORD MD REASON FOR APPOINTMENT 1. 3 MONTHS W/C HISTORY OF PRESENT ILLNESS HISTORY OF PRESENT ILLNESS: PAIN THE PATIENT DESCRIBES THE PAIN... 67 YEAR OLD FEMALE PATIENT WITH A HISTORY OF CHRONIC ARM PAIN. THE PATIENT DESCRIBES THE PAIN ACHING, BURNING, AND INTERMITTENT WITH A PAIN SCORE OF 3-6/10 DEPENDING ON PHYSICAL ACTIVITY AND MEDICATION USE. THE PATIENT WAS HURT IN A WORK RELATED INJURY ON 04/25/1998 WHILE WORKING FOR [employer] A [employer]ATIC [employer]ENT WHEN SHE SLIPPED AND FELL ON ICE AND LANDED ON HER ARMS. THE PATIENT SAYS HER PAIN IS THE WORST IN THE MORNING AND IS BETTER IN THE AFTERNOON. THE PATIENT REPORTS THAT SHE HAS BEEN DOING EXERCISES AT HOME MUCH SHE CAN. THE PATIENT IS CURRENTLY USING CYMBALTA AND GABAPENTIN TO AID IN PAIN RELIEF. THE PATIENT SAYS THAT THE USE OF THESE MEDICATIONS AND THE EXERCISES HELP HER BE MORE MOBILE AND FUNCTIONAL. PATIENT DENIES UNEXPLAINABLE WEIGHT LOSS, FEVER, CHILLS, NEW CHANGES ON HER URINARY OR BOWEL CONTROL. FALL RISK SCREENING: SCREENING :NO FALLS REPORTED IN THE LAST YEAR CURRENT MEDICATIONS TAKING GABAPENTIN 800 MG TABLET 1 TABLET ORALLY THREE TIMES A DAY TAKING [employer] SYSTEM W/DEVICE KIT CHECK BLOOD SUGARS ONCE DAILY EXTERNAL DAILY DX: E11.8 TAKING GMEXUCH LANCETS - MISCELLANEOUS CHECK BLOOD SUGARS ONCE DAILY SUBCUTANEOUSLY DAILY TAKING [employer] ULTRA BLUE - STRIP CHECK BLOOD SUGARS ONCE DAILY IN VITRO DAILY DX: E11.8 TAKING GLUCOSE BLOOD ACCHUCHEK STRIP TEST STRIPS IN VITRO FSBS DAILY TAKING TYLENOL PM EXTRA STRENGTH 500-25 MG TABLET 1 TABLET AT BEDTIME NEEDED ORALLY ONCE A DAY TAKING MELATONIN 5 MG TABLET ORALLY BEFORE BEDTIME TAKING OMEPRAZOLE 20 MG CAPSULE DELAYED RELEASE 1 CAPSULE ORALLY ONCE A DAY TAKING FERROUS SULFATE 325 (65 FE) MG TABLET 1 TABLET ORALLY TWICE DAILY TAKING PROPRANOLOL HCL ER 60 MG CAPSULE EXTENDED RELEASE 24 HOUR 1 CAPSULE ORALLY ONCE A DAY TAKING LOSARTAN POTASSIUM 25 MG TABLET 1 TABLET ORALLY DAILY TAKING SUMATRIPTAN SUCCINATE 4 MG/0.5ML SOLUTION AUTO-INJECTOR 0.5 ML NEEDED SUBCUTANEOUS ONCE DAILY NEEDED TAKING LIPITOR 40 MG TABLET 1 TABLET ORALLY ONCE A DAY TAKING GLIPIZIDE 10 MG TABLET 2 TABLET ORALLY TWICE DAILY TAKING METFORMIN HCL 500 MG TABLET 2 TABLETS ORALLY TWICE A DAY TAKING TRULICITY 0.75 MG/0.5ML SOLUTION PEN-INJECTOR DIRECTED SUBCUTANEOUS WEEKLY TAKING FLOMAX 0.4 MG CAPSULE 1 CAPSULE ORALLY ONCE A DAY TAKING CYMBALTA 60 MG UNSPECIFIED 1 CAPSULE ORALLY FOR PAIN BID (WORKERS COMP), NOTES: DULOXETINE NOT-TAKING DOXYCYCLINE HYCLATE 100 MG TABLET 1 TABLET ORALLY TWICE A DAY NOT-TAKING CIPROFLOXACIN HCL 500 MG TABLET 1 TABLET ORALLY EVERY 12 HRS NOT-TAKING KETOROLAC TROMETHAMINE 10 MG TABLET 1 TABLET WITH FOOD OR MILK NEEDED ORALLY EVERY 6 HRS NEEDED NOT-TAKING POTASSIUM CHLORIDE ER 20 MEQ TABLET EXTENDED RELEASE 2 TABLETS WITH FOOD ORALLY ONCE A DAY NOT-TAKING PERCOCET 5-325 MG TABLET 1 TABLET ORALLY EVERY 6 HRS NEEDED FOR PAIN (MDD 4) MEDICATION LIST REVIEWED AND RECONCILED WITH THE PATIENT PAST MEDICAL HISTORY DIABETES MELLITUS HYPERTENSION HYPERLIPIDEMIA DEPRESSION MIGRAINE HEADACHE, OCCASIONAL COMPLEX REGIONAL PAIN SYNDROME (CRPS) HX RENAL CALCULI WITH LITHOTRIPSY POSTMENOPAUSE HISTORY OF VITREOUS DETACHMENT DIFFICULTY WITH GENERAL ANESTHESIA BIAPICAL PLEURAL THICKENING - CHEST CT 08/2015 CHANO ON CPAP IRON DEFICIENCY ANEMIA HISTORY OF H PYLORI INFECTION HISTORY OF CARDIOMEGALY GERD REFUSED PNA VACCINE JANUARY 2016 GAVE, W[place]ELON STOMACH PERIPHERAL NEUROPATHY BROKE R FOOT ALLERGIES N.K.D.A. SURGICAL HISTORY APPENDECTOMY HYSTERECTOMY, PARTIAL OVARIAN CYST REMOVED ELBOW SURGERY, RIGHT COLONOSCOPY X 3 09/28/14 CYSTOSCOPY 08/21/15 CYSTO STENT PLACEMENT STENT REMOVED 10/15/1509/2015 CATARACT-RT 08/18/16 ENDOSCOPY 10/11 CATARACT REMOVAL-LT 08/2016 LENS IMPLANT RIGHT 2016 LITHOTRIPSY 03/2018 LITHOTRIPSY 08/2018 FAMILY HISTORY FATHER: 46 YRS, [place] MOTHER: 82 YRS, HEART FAILURE SIBLINGS: ALIVE DAUGHTER(S): ALIVE, LUPUS 1 BROTHER(S) , 2 SISTER(S) . 3DAUGHTER(S) - HEALTHY. BROTHER -SD. SOCIAL HISTORY GENERAL: TOBACCO USE ARE YOU A:NONSMOKER NEVER SMOKER HIV / HEP-C SCREENING HIV TEST OFFERED TO PATIENT:YES DATE OFFERED:11/12/2017 TEST ACCEPTED:NO HEP-C TEST OFFERED TO PATIENT:YES DATE OFFERED:11/12/2017 REASON:PATIENT DECLINED TEST ACCEPTED:NO REASON:PATIENT DECLINED BROCHURE PROVIDED TO PATIENTNO OTHERS AT HOME: SPOUSE. EDUCATION LEVEL OF EDUCATION:HIGH SCHOOL DIET: REGULAR. LANGUAGE SINHALA. NEW PATIENT PAIN DIARY FROM 0-10, WHAT LEVEL IS YOUR PAIN TODAY?4 BMI CARE GOAL FOLLOW-UP ABOVE NORMAL BMI FOLLOW-UPLIFESTYLE EDUCATION REGARDING DIET RECREATIONAL DRUG USE DRUG USE?NO EXERCISE: NO REGULAR EXERCISE. LEARNING BARRIERS / SPECIAL NEEDS CHANGE FROM LAST VISIT?NO BARRIERS TO LEARNING?NO HEARING IMPAIRED?NO VISION IMPAIRED?YES COGNITIVELY IMPAIRED?NO :CORRECTIVE LENSES READINESS TO LEARN?YES LEARNING PREFERENCES?NO LEARNING CAPABILITIES PRESENT?YES EMOTIONAL BARRIERS?NO SPECIAL DEVICES?NO [employer] SUPERVISOR NEEDED?NO PAIN CLINIC PFS, CLERGY, PUBLIC HEALTH REFERRALS PFS REFERRAL NEEDED?NO CLERGY REFERRAL NEEDED?NO PUBLIC HEALTH REFERRAL NEEDED?NO WAS THE PROVIDER NOTIFIED OF ANY PERTINENT INFO?YES HAS THE PATIENT BEEN EDUCATED REGARDING HIS/HER PLAN OF CARE?YES HAS THE PATIENT BEEN EDUCATED REGARDING PAIN, THE RISK FOR PAIN, THE IMPORTANCE OF EFFECTIVE PAIN MANAGEMENT, AND THE PAIN ASSESSMENT PROCESS?YES LATEX QUESTIONNAIRE LATEX ALLERGY : HAVE YOU EVER DEVELOPED ANY TYPE OF REACTION AFTER HANDLING LATEX PRODUCTS SUCH RUBBER GLOVES, CONDOMS, DIAPHRAGMS, BALLOONS, SOCKS, OR UNDERWEAR?NO LATEX ALLERGY : HAVE YOU EVER DEVELOPED ANY TYPE OF REACTION DURING OR AFTER DENTAL APPOINTMENT, VAGINAL/RECTAL EXAMINATION, SURGICAL PROCEDURE, OR ANY OTHER EXPOSURE?NO DATE ASKED : 07/05/2018 LATEX RISK : HAVE YOU EVER HAD ANY DIFFICULTY BREATHING OR HIVES AFTER EATING OR HANDLING ANY FRUITS, OR VEGETABLES; SUCH KIWI, BANANAS, STONE FRUITS, OR CHESTNUTSNO LATEX RISK : DO YOU HAVE A PREVIOUS PERSONAL HISTORY OF MORE THAN NINE SURGERIES, SPINA BIFIDA, OR REPEATED CATHERTIZATIONS? NO LATEX RISK : ARE YOU FREQUENTLY EXPOSED TO LATEX PRODUCTS IN YOUR OCCUPATION?NO CAFFEINE CAFFEINE USE?YES 1-2 CUPS COFFEE ADVANCE DIRECTIVE ADVANCE DIRECTIVE DISCUSSED WITH PATIENT:YES DECLINES HCP INFORMATION AT THIS TIME. RASTAFARIAN [id number] ANABAPTIST MARITAL STATUS: . ALCOHOL SCREENING DID YOU HAVE A DRINK CONTAINING ALCOHOL IN THE PAST YEAR?NO POINTS0 INTERPRETATIONNEGATIVE OCCUPATION: UNEMPLOYED. SEXUAL HX HAD SEX IN THE LAST 12 MONTHS (VAGINAL, ORAL, OR ANAL)?YES WITHMEN ONLY LMP:HYSTER HAVE YOU EVER HAD AN STD?NO REVIEWED WITH PATIENT 04/12 18 [id number] JS. HOSPITALIZATION/MAJOR DIAGNOSTIC PROCEDURE SURGERIES CHILDBIRTH REVIEW OF SYSTEMS REVIEWED BY: PROVIDER: JANIE FORD MD . CONSTITUTIONAL: ANY CHANGE IN YOUR MEDICAL CONDITION? NO . CHILLS NO . FEVER NO . INFECTION: DO YOU HAVE NEW INFECTIONS? NO . DO YOU HAVE HISTORY OF MRSA? NO . MUSCULOSKELETAL: ANY NEW PATTERNS OF PAIN OR NUMBNESS? NO . GASTROENTEROLOGY: ANY NEW CHANGE IN BOWEL CONTROL? NO . GENITOURINARY: ANY NEW CHANGE IN BLADDER CONTROL? NO . IS THERE A CHANCE YOU COULD BE ? NO . HEMATOLOGY/LYMPH: DO YOU TAKE ANY BLOOD THINNERS? (FOR EXAMPLE- COUMADIN, PLAVIX, AGGRENOX, PLATEL, PRADAXA, OR XARELTO) NO . WHEN WAS YOUR LAST DOSE? DATE: TIME: . NEUROLOGY: HAVE YOU FALLEN IN THE PAST 12 MONTHS? YES, FELL 2 WEEKS AGO FROM LOSS OF BALANCE . ANY NEW EXTREMITY NUMBNESS OR WEAKNESS? NO . CARDIOLOGY: DO YOU HAVE A PACEMAKER OR DEFIBRILLATOR? NO . RESPIRATORY: HAVE YOU BEEN SICK IN THE PAST WEEK? NO . FEVER NO . FLU LIKE SYMPTOMS? NO . COUGH NO . INTEGUMENTARY: DO YOU HAVE ANY RASHES OR OPEN SORES? YES, TICK BITE TO RIGHT THORACIC, NO BULLS EYE RASH . ALLERGIC/IMMUNO: ARE YOU ALLERGIC TO IV DYE? NO . ANY NEW ALLERGIES? NO . PSYCHIATRIC: DO YOU HAVE THOUGHTS OF HURTING YOURSELF OR SOMEONE ELSE? NO . ARE YOU ABUSED, NEGLECTED, OR IN AN UNSAFE ENVIRONMENT? NO . ENDOCRINOLOGY: ARE YOU DIABETIC? YES . OTHER: DO YOU NEED ANY PRESCRIPTIONS? NO . IF YES, PLEASE LIST: ____ . ANY NEW PROBLEMS WITH YOUR MEDICATIONS? NO . WHEN DID YOU LAST EAT? ____ . WHEN DID YOU LAST DRINK? ____ . WHAT DID YOU LAST DRINK? ____ . NAME OF PERSON DRIVING YOU HOME? ____ . DO YOU HAVE ANY OTHER QUESTIONS OR CONCERNS YES, WENT TO [facility] ER FOR KIDNEY STONE, TICK BUG REMOVED, PT ON DOXY . VITAL SIGNS WT 166.6 LBS, HT 66.5 IN, BMI 26.48 INDEX, BP 123/63 MM HG, HR 74 /MIN, RR 18 /MIN, TEMP 98.2 F, OXYGEN SAT % 98%, NA INITIALS AW 0849, REVIEWED BY: EM. EXAMINATION GENERAL EXAMINATION: PATIENT IS ALERT O X 3 AND COOPERATIVE. ALLODYNIA OVER THE RIGHT ARM. MUSCLE MASS AND STRENGTH REDUCED OVER THE RIGHT ARM. PATIENT IS UNABLE TO OPEN HER FINGERS ON HER RIGHT HAND. 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 INGRAM'S PAIN MANAGEMENT CASE. THE PATIENT WILL CONTINUE USING THE CYMBALTA AND GABAPENTIN FOR THE NEUROPATHIC PAIN. THE PATIENT MAY CONSIDER INCREASING CYMBALTA IN THE FUTURE IF HER PAIN WORSENS. THE PATIENT WAS ENCOURAGED TO CONTINUE MOVING HER ARMS TO KEEP HERSELF MOBILE. THE PATIENT WILL FOLLOW UP IN 3 MONTHS. INSTRUCTIONS WERE GIVEN, QUESTIONS WERE ANSWERED, PATIENT REPORTS UNDERSTANDING AND AGREES WITH THE PLAN. I, GUSTABO HARRIS, DOCUMENTED THE ABOVE INFORMATION ACTING A SCRIBE FOR DR. OFRD. I HAVE REVIEWED THE ABOVE DOCUMENT, WRITTEN BY GUSTABO PAREDESIBDinh AND I VERIFY THAT IT IS ACCURATE. . PROCEDURES PN WORKMANS' COMP OPINION IN YOUR OPINION, WAS THE INCIDENT THAT THE PATIENT DESCRIBED THE COMPETENT MEDICAL CAUSE OF THIS INJURY/ILLNESS? YES ARE THE PATIENT'S COMPLAINTS CONSISTENT WITH HIS/HER HISTORY OF THE INJURY/ILLNESS? YES IS THE PATIENT'S HISTORY OF THE INJURY/ILLNESS CONSISTENT WITH YOUR OBJECTIVE FINDING? YES WHAT IS THE PERCENTAGE OF TEMPORARY IMPAIRMENT? TOTAL = 100% IS THE PATIENT WORKING? NO DOCTOR ON SITE: JANIE SHAHID MD PROCEDURE CODES FA211 ESTABILISHED PATIENT [facility] FACILITY CHARGE [id number] CURRENT MEDS W/DOSAGES DOCUMENTED G8730 PAIN ASSESS POS TOOL F/U PLAN DOC DISPOSITION & COMMUNICATION FOLLOW UP 3 MONTHS (REASON: W/C ARMS) ELECTRONICALLY SIGNED BY JANIE FORD MD, MD ON 10/10/2018 AT 08:55 PM EDT DISCLAIMER : THIS IS A VISIT SUMMARY EXTRACTED FROM THE [employer] CHART. IT IS NOT A COPY OF THE [employer] PROGRESS NOTE. OZZIED
== END ==
LOC: M PAIN 08:45
PROVIDERS: ATTEND Anesthesiology
DX: M79.2 Neuralgia and neuritis, unspecified (principal); I10 Essential (primary) hypertension; E11.42 Type 2 diabetes mellitus with diabetic polyneuropathy; Z79.899 Other long term (current) drug therapy

== ENCOUNTER → 2018-11-18 | Outpatient (CLI) | payer MEDICARE ==
[~2018-11-18] MED LIST changes: -DULO1CAP3 PO; +DULO1CAP6 PO; -OMEP20CA3 PO; +OMEP20CA4 PO
--- NOTE | 2018-11-18 16:08 | REP ---
Left foot four views : There is no fracture or dislocation. Mineralization and joint spaces are normal. There are no calcifications or foreign bodies. There are calcaneal plantar and Achilles spurs. Impression: Calcaneal plantar and Achilles spurs, otherwise, negative left foot . Electronically Signed by Nj Benito MD 11/18/2018 04:00 P
[2018-11-18 16:15] LABS: HEMATOCRIT 35.6 % (36.0-47.0); HEMOGLOBIN 11.7 g/dl (12.0-15.5); MEAN CORPUSCULAR HEMOGLOBIN 31.8 pg (27.0-33.0); MEAN CORPUSCULAR HGB CONC 32.9 g/dl (32.0-36.5); MEAN CORPUSCULAR VOLUME 96.7 fl (80.0-96.0); PLATELET COUNT, AUTOMATED 269 10^3/uL (150-450); RED BLOOD COUNT 3.68 10^6/uL (4.00-5.40); WHITE BLOOD COUNT 6.4 10^3/uL (4.0-10.0)
[2018-11-18 16:49] LABS: MALB URINE SIEMENS 23.9 MG/L; MAU/CREAT RATIO 13.2 MCG/MG (0.0-30.0)
[2018-11-18 18:13] LABS: HEMOGLOBIN A1c 7.8 %
== END ==
LOC: M LAB 15:05
PROVIDERS: ATTEND Internal Medicine
DX: M77.32 Calcaneal spur, left foot (principal); M79.672 Pain in left foot; E11.8 Type 2 diabetes mellitus with unspecified complications; K31.819 Angiodysplasia of stomach and duodenum without bleeding; W57.XXXD Bitten or stung by nonvenomous insect and other nonvenomous arthropods, subsequent encounter

== ENCOUNTER → 2018-12-31 | Outpatient (CLI) | payer OTHER ==
[~2018-12-31] MED LIST changes: +METF-791 PO; -METF500T4 PO
--- NOTE | 2019-01-14 02:37 | ECWPNPC ---
PATIENT NAME: SANTIAGO INGRAM : 1950 GENDER: FEMALE VISIT DATE: 12/31/2018 DISCHARGE DATE: 12/31/18 0953 VISIT LOCKED DATE TIME: PHYSICIAN: JANIE FORD MD RESOURCE: JANIE FORD MD REASON FOR APPOINTMENT 1. W/C ARMS HISTORY OF PRESENT ILLNESS HISTORY OF PRESENT ILLNESS: PAIN THE PATIENT DESCRIBES THE PAIN... 68 YEAR OLD FEMALE PATIENT WITH A HISTORY OF CHRONIC ARM PAIN. THE PATIENT DESCRIBES THE PAIN ACHING, BURNING, TENDER, DAILY, AND INTERMITTENT WITH A PAIN SCORE OF 3-7/10 DEPENDING ON PHYSICAL ACTIVITY. 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 THE PATIENT STATES SHE IS SUFFERING FROM PAIN RADIATING UP BOTH ARMS AND HER RIGHT ARM PAIN IS WORSE THAN THE LEFT CURRENTLY. THE PATIENT SAYS SHE IS USING CYMBALTA 60 MG AND GABAPENTIN 800 MG THAT AIDS IN PAIN RELIEF. THE PATIENT SAYS SHE PERFORMS PHYSICAL THERAPY EXERCISES DAILY AT HOME, WHICH HELPS WITH HER PAIN AND MOBILITY. PATIENT DENIES UNEXPLAINABLE WEIGHT LOSS, FEVER, CHILLS, NEW CHANGES ON HER URINARY OR BOWEL CONTROL. FALL RISK SCREENING: SCREENING :NO FALLS REPORTED IN THE LAST YEAR CURRENT MEDICATIONS TAKING app2you ULTRA SYSTEM W/DEVICE KIT CHECK BLOOD SUGARS ONCE DAILY EXTERNAL DAILY DX: E11.8 TAKING ONETOUCH LANCETS - MISCELLANEOUS CHECK BLOOD SUGARS ONCE DAILY SUBCUTANEOUSLY DAILY TAKING Outrigger MediaUCH ULTRA BLUE - STRIP CHECK BLOOD SUGARS ONCE DAILY IN VITRO DAILY DX: E11.8 TAKING GLUCOSE BLOOD ACCHUCHEK STRIP TEST STRIPS IN VITRO FSBS DAILY TAKING TYLENOL PM EXTRA STRENGTH 500-25 MG TABLET 1 TABLET AT BEDTIME NEEDED ORALLY ONCE A DAY TAKING MELATONIN 5 MG TABLET ORALLY BEFORE BEDTIME TAKING SUMATRIPTAN SUCCINATE 4 MG/0.5ML SOLUTION AUTO-INJECTOR 0.5 ML NEEDED SUBCUTANEOUS ONCE DAILY NEEDED, NOTES: NOT IN A LONG TIME TAKING LIPITOR 40 MG TABLET 1 TABLET ORALLY ONCE A DAY TAKING FLOMAX 0.4 MG CAPSULE 1 CAPSULE ORALLY ONCE A DAY, NOTES: WHEN PT HAS KIDNEY STONES TAKING TRULICITY 0.75 MG/0.5ML SOLUTION PEN-INJECTOR DIRECTED SUBCUTANEOUS WEEKLY TAKING PROPRANOLOL HCL ER 60 MG CAPSULE EXTENDED RELEASE 24 HOUR 1 CAPSULE ORALLY ONCE A DAY TAKING GLIPIZIDE 10 MG TABLET 2 TABLET ORALLY TWICE DAILY TAKING METFORMIN HCL 500 MG TABLET 2 TABLETS ORALLY TWICE A DAY TAKING FERROUS SULFATE 325 (65 FE) MG TABLET 1 TABLET ORALLY TWICE DAILY TAKING OMEPRAZOLE 20 MG CAPSULE DELAYED RELEASE 1 CAPSULE ORALLY ONCE A DAY TAKING LOSARTAN POTASSIUM 25 MG TABLET 1 TABLET ORALLY DAILY TAKING CYMBALTA 60 MG UNSPECIFIED 1 CAPSULE ORALLY FOR PAIN BID (WORKERS COMP), NOTES: DULOXETINE TAKING GABAPENTIN 800 MG TABLET 1 TABLET ORALLY THREE TIMES A DAY TAKING METFORMIN HCL ER 500 MG TABLET EXTENDED RELEASE 24 HOUR 2 TABLETS ORALLY TWICE A DAY MEDICATION LIST REVIEWED AND RECONCILED WITH THE PATIENT PAST MEDICAL HISTORY DIABETES MELLITUS HYPERTENSION HYPERLIPIDEMIA DEPRESSION MIGRAINE HEADACHE, OCCASIONAL COMPLEX REGIONAL PAIN SYNDROME (CRPS) HX RENAL CALCULI WITH LITHOTRIPSY POSTMENOPAUSE HISTORY OF VITREOUS DETACHMENT DIFFICULTY WITH GENERAL ANESTHESIA BIAPICAL PLEURAL THICKENING - CHEST CT 08/2015 CHANO ON CPAP IRON DEFICIENCY ANEMIA HISTORY OF H PYLORI INFECTION HISTORY OF CARDIOMEGALY GERD REFUSED PNA VACCINE JANUARY 2016 GAVE, [place]EL[place] STOMACH PERIPHERAL NEUROPATHY BROKE R FOOT ALLERGIES N.K.D.A. SURGICAL HISTORY APPENDECTOMY HYSTERECTOMY, PARTIAL OVARIAN CYST REMOVED ELBOW SURGERY, RIGHT COLONOSCOPY X 3 09/28/14 CYSTOSCOPY 08/21/15 CYSTO STENT PLACEMENT STENT REMOVED 10/15/1509/2015 CATARACT-RT 08/18/16 ENDOSCOPY 10/11 CATARACT REMOVAL-LT 08/2016 LENS IMPLANT RIGHT 2015 LITHOTRIPSY 03/2018 LITHOTRIPSY 08/2018 FAMILY HISTORY FATHER: 46 YRS, [place] MOTHER: 82 YRS, HEART FAILURE SIBLINGS: ALIVE DAUGHTER(S): ALIVE, LUPUS 1 BROTHER(S) , 2 SISTER(S) . 3DAUGHTER(S) - HEALTHY. BROTHER -HI. SOCIAL HISTORY GENERAL: TOBACCO USE ARE YOU A:NONSMOKER NEVER SMOKER HIV / HEP-C SCREENING HIV TEST OFFERED TO PATIENT:YES DATE OFFERED:11/12/2017 TEST ACCEPTED:NO HEP-C TEST OFFERED TO PATIENT:YES DATE OFFERED:11/12/2017 REASON:PATIENT DECLINED TEST ACCEPTED:NO REASON:PATIENT DECLINED BROCHURE PROVIDED TO PATIENTNO OTHERS AT HOME: SPOUSE. EDUCATION LEVEL OF EDUCATION:HIGH SCHOOL DIET: REGULAR. LANGUAGE TURKISH. NEW PATIENT PAIN DIARY FROM 0-10, WHAT LEVEL IS YOUR PAIN TODAY?4 BMI CARE GOAL FOLLOW-UP ABOVE NORMAL BMI FOLLOW-UPLIFESTYLE EDUCATION REGARDING DIET RECREATIONAL DRUG USE DRUG USE?NO EXERCISE: NO REGULAR EXERCISE. LEARNING BARRIERS / SPECIAL NEEDS CHANGE FROM LAST VISIT?NO BARRIERS TO LEARNING?NO HEARING IMPAIRED?NO VISION IMPAIRED?YES COGNITIVELY IMPAIRED?NO :CORRECTIVE LENSES READINESS TO LEARN?YES LEARNING PREFERENCES?NO LEARNING CAPABILITIES PRESENT?YES EMOTIONAL BARRIERS?NO SPECIAL DEVICES?NO LEGGER PRESS OPERATOR NEEDED?NO PAIN CLINIC PFS, CLERGY, PUBLIC HEALTH REFERRALS PFS REFERRAL NEEDED?NO CLERGY REFERRAL NEEDED?NO PUBLIC HEALTH REFERRAL NEEDED?NO WAS THE PROVIDER NOTIFIED OF ANY PERTINENT INFO?YES HAS THE PATIENT BEEN EDUCATED REGARDING HIS/HER PLAN OF CARE?YES HAS THE PATIENT BEEN EDUCATED REGARDING PAIN, THE RISK FOR PAIN, THE IMPORTANCE OF EFFECTIVE PAIN MANAGEMENT, AND THE PAIN ASSESSMENT PROCESS?YES LATEX QUESTIONNAIRE LATEX ALLERGY : HAVE YOU EVER DEVELOPED ANY TYPE OF REACTION AFTER HANDLING LATEX PRODUCTS SUCH RUBBER GLOVES, CONDOMS, DIAPHRAGMS, BALLOONS, SOCKS, OR UNDERWEAR?NO LATEX ALLERGY : HAVE YOU EVER DEVELOPED ANY TYPE OF REACTION DURING OR AFTER DENTAL APPOINTMENT, VAGINAL/RECTAL EXAMINATION, SURGICAL PROCEDURE, OR ANY OTHER EXPOSURE?NO DATE ASKED : 07/05/2018 LATEX RISK : HAVE YOU EVER HAD ANY DIFFICULTY BREATHING OR HIVES AFTER EATING OR HANDLING ANY FRUITS, OR VEGETABLES; SUCH KIWI, BANANAS, STONE FRUITS, OR CHESTNUTSNO LATEX RISK : DO YOU HAVE A PREVIOUS PERSONAL HISTORY OF MORE THAN NINE SURGERIES, SPINA BIFIDA, OR REPEATED CATHERIZATIONS? NO LATEX RISK : ARE YOU FREQUENTLY EXPOSED TO LATEX PRODUCTS IN YOUR OCCUPATION?NO CAFFEINE CAFFEINE USE?YES 1-2 CUPS COFFEE ADVANCE DIRECTIVE ADVANCE DIRECTIVE DISCUSSED WITH PATIENT:YES DECLINES HCP INFORMATION AT THIS TIME. JUDAISM [id number] JAIN MARITAL STATUS: . ALCOHOL SCREENING DID YOU HAVE A DRINK CONTAINING ALCOHOL IN THE PAST YEAR?NO POINTS0 INTERPRETATIONNEGATIVE OCCUPATION: UNEMPLOYED. SEXUAL HX HAD SEX IN THE LAST 12 MONTHS (VAGINAL, ORAL, OR ANAL)?YES WITHMEN ONLY LMP:HYSTER HAVE YOU EVER HAD AN STD?NO REVIEWED WITH PATIENT 04/12 18 1626 JS. HOSPITALIZATION/MAJOR DIAGNOSTIC PROCEDURE SURGERIES CHILDBIRTH REVIEW OF SYSTEMS REVIEWED BY: PROVIDER: JANIE FORD MD . CONSTITUTIONAL: ANY CHANGE IN YOUR MEDICAL CONDITION? NO . CHILLS NO . FEVER NO . INFECTION: DO YOU HAVE NEW INFECTIONS? NO . DO YOU HAVE HISTORY OF MRSA? NO . MUSCULOSKELETAL: ANY NEW PATTERNS OF PAIN OR NUMBNESS? NO . GASTROENTEROLOGY: ANY NEW CHANGE IN BOWEL CONTROL? NO . GENITOURINARY: ANY NEW CHANGE IN BLADDER CONTROL? NO . IS THERE A CHANCE YOU COULD BE ? NO . HEMATOLOGY/LYMPH: DO YOU TAKE ANY BLOOD THINNERS? (FOR EXAMPLE- COUMADIN, PLAVIX, AGGRENOX, PLATEL, PRADAXA, OR XARELTO) NO . WHEN WAS YOUR LAST DOSE? DATE: TIME: . NEUROLOGY: HAVE YOU FALLEN IN THE PAST 12 MONTHS? NO . ANY NEW EXTREMITY NUMBNESS OR WEAKNESS? NO . CARDIOLOGY: DO YOU HAVE A PACEMAKER OR DEFIBRILLATOR? NO . RESPIRATORY: HAVE YOU BEEN SICK IN THE PAST WEEK? NO . FEVER NO . FLU LIKE SYMPTOMS? NO . COUGH NO . INTEGUMENTARY: DO YOU HAVE ANY RASHES OR OPEN SORES? NO . ALLERGIC/IMMUNO: ARE YOU ALLERGIC TO IV DYE? NO . ANY NEW ALLERGIES? NO . PSYCHIATRIC: DO YOU HAVE THOUGHTS OF HURTING YOURSELF OR SOMEONE ELSE? NO . ARE YOU ABUSED, NEGLECTED, OR IN AN UNSAFE ENVIRONMENT? NO . ENDOCRINOLOGY: ARE YOU DIABETIC? YES . OTHER: DO YOU NEED ANY PRESCRIPTIONS? YES GABAPENTIN . IF YES, PLEASE LIST: ____ . ANY NEW PROBLEMS WITH YOUR MEDICATIONS? NO . WHEN DID YOU LAST EAT? ____ . WHEN DID YOU LAST DRINK? ____ . WHAT DID YOU LAST DRINK? ____ . NAME OF PERSON DRIVING YOU HOME? ____ . DO YOU HAVE ANY OTHER QUESTIONS OR CONCERNS NO . VITAL SIGNS WT 164.0 LBS, HT 66.5 IN, BMI 26.07 INDEX, BP 124/61 MM HG, HR 66 /MIN, RR 18 /MIN, TEMP 97.1 F, OXYGEN SAT % 100%, NA INITIALS AW 0846, REVIEWED BY: KG. EXAMINATION GENERAL EXAMINATION: PATIENT IS ALERT O X 3 AND COOPERATIVE. THERE IS MUSCLE AND STRENGTH REDUCTION IN THE RIGHT ARM COMPARED TO THE LEFT ARM. ALLODYNIA ON BOTH SIDES OF THE RIGHT AND LEFT ARMS. 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 INGRAM'S PAIN MANAGEMENT CASE. THE PATIENT WILL CONTINUE WITH HER CURRENT MEDICATION REGIMENT OF CYMBALTA 60 MG AND GABAPENTIN 800 MG THAT IS HELPING TO PROVIDE PAIN RELIEF FOR HER. I REFILLED BOTH MEDICATIONS AT TODAY'S VISIT. I ADVISED THE PATIENT TO CONTINUE PERFORMING HER PHYSICAL THERAPY EXERCISE ROUTINE AT HOME THAT IS HELPING TO MAINTAIN HER STRENGTH AND MOBILITY OF BOTH ARMS. I AM REFERRING THE PATIENT TO DEION BISHOP TO CONSIDER CONTINUING THE PATIENT'S MEDICATION MANAGEMENT. THE PATIENT WILL FOLLOW UP WITH THE NURSE PRACTITIONER IN 3 MONTHS. INSTRUCTIONS WERE GIVEN, QUESTIONS WERE ANSWERED, PATIENT REPORTS UNDERSTANDING AND AGREES WITH THE PLAN. I, JIGNESH VAUGHN, DOCUMENTED THE ABOVE INFORMATION ACTING A SCRIBE FOR DR. FORD. I HAVE REVIEWED THE ABOVE DOCUMENT, WRITTEN BY JIGNESH ARIZMENDI AND I VERIFY THAT IT IS ACCURATE. . OTHERS REFILL GABAPENTIN TABLET, 800 MG, 1 TABLET, ORALLY, THREE TIMES A DAY, 30 DAY(S), 90, REFILLS 2 REFILL CYMBALTA UNSPECIFIED, 60 MG, 1 CAPSULE, ORALLY FOR PAIN, BID (WORKERS COMP), 30 DAYS, 60, REFILLS 2, NOTES: DULOXETINE PROCEDURES PN WORKMANS' COMP OPINION IN YOUR OPINION, WAS THE INCIDENT THAT THE PATIENT DESCRIBED THE COMPETENT MEDICAL CAUSE OF THIS INJURY/ILLNESS? YES ARE THE PATIENT'S COMPLAINTS CONSISTENT WITH HIS/HER HISTORY OF THE INJURY/ILLNESS? YES IS THE PATIENT'S HISTORY OF THE INJURY/ILLNESS CONSISTENT WITH YOUR OBJECTIVE FINDING? YES WHAT IS THE PERCENTAGE OF TEMPORARY IMPAIRMENT? TOTAL = 100% IS THE PATIENT WORKING? NO DOCTOR ON SITE: JANIE SHAHID MD PROCEDURE CODES FA211 ESTABILISHED PATIENT [facility] FACILITY CHARGE G8427 CURRENT MEDS W/DOSAGES DOCUMENTED G8730 PAIN ASSESS POS TOOL F/U PLAN DOC DISPOSITION & COMMUNICATION FOLLOW UP 3 MONTHS (REASON: BEING REFERRED TO DEION BISHOP FOR MED MANAGE THOUGH) ELECTRONICALLY SIGNED BY JANIE FORD MD, MD ON 01/13/2019 AT 02:05 PM EDT DISCLAIMER : THIS IS A VISIT SUMMARY EXTRACTED FROM THE [employer] CHART. IT IS NOT A COPY OF THE [employer] PROGRESS NOTE. OZZIED
== END ==
LOC: M PAIN 08:45
PROVIDERS: ATTEND Anesthesiology
DX: M79.2 Neuralgia and neuritis, unspecified (principal); M79.602 Pain in left arm; M79.601 Pain in right arm; E11.9 Type 2 diabetes mellitus without complications; I10 Essential (primary) hypertension; E78.5 Hyperlipidemia, unspecified; F32.9 Major depressive disorder, single episode, unspecified; G43.909 Migraine, unspecified, not intractable, without status migrainosus; Z87.442 Personal history of urinary calculi; G47.33 Obstructive sleep apnea (adult) (pediatric); D50.9 Iron deficiency anemia, unspecified; K21.9 Gastro-esophageal reflux disease without esophagitis; Z79.4 Long term (current) use of insulin; Z79.899 Other long term (current) drug therapy; Z90.49 Acquired absence of other specified parts of digestive tract; Z98.41 Cataract extraction status, right eye; Z96.1 Presence of intraocular lens

== ENCOUNTER → 2019-01-11 | Outpatient (CLI) | payer MEDICARE ==
--- NOTE | 2019-01-11 11:16 | REPMRS ---
Patient History The patient states she had a clinical breast exam in 12/2018. Family history of breast cancer at age 42 in maternal half sister, colorectal cancer at age 50 or over in paternal grandmother, colorectal cancer at age 50 or over in paternal grandfather, colorectal cancer at age 50 or over in father. Took unspecified hormones for 27 years. 3D TOMOSYNTHESIS WAS PERFORMED. [facility] lifetime risk for breast cancer is 4.6%. Digital Woman Screen Mammo: January 11, 2019 - Exam #: [id number] Bilateral CC and MLO view(s) were taken. Technologist: Mari Wharton, Technologist Prior study comparison: November 30, 2017, bilateral digital woman screen mammo performed at [facility]. November 28, 2016, digital woman screen mammo performed at [facility]. FINDINGS: There are scattered fibroglandular densities. There has been no change in the appearance of the mammogram from the prior studies. There is a mild amount of residual fibroglandular tissue which is fairly symmetric. There is no interval development of dominant mass, architectural distortion, or clustered microcalcification suggestive of malignancy. Assessment: BI-RADS/ACR category 1 mammogram. Negative Mammogram. Recommendation Routine screening mammogram in 1 year (for women over age 40). This mammogram was interpreted with the aid of an FDA-approved computer-aided dectection system. Electronically Signed By: Nj Shepherd MD 01/11/19 0533
== END ==
LOC: M WHC 08:32
PROVIDERS: ATTEND Nurse Practitioner Women's Health
DX: Z12.31 Encounter for screening mammogram for malignant neoplasm of breast (principal); Z80.0 Family history of malignant neoplasm of digestive organs; Z92.29 Personal history of other drug therapy

== ENCOUNTER 2019-07-03 20:16 | Emergency (ER) | payer MEDICARE, OTHER ==
[~2019-07-03] VITALS: Ht 170.2 cm; Wt 75.5 kg
[~2019-07-03 20:16] MED LIST changes: +OMEP1CAP73 PO; -OMEP20CA4 PO; -SIMV20TA2 PO; +SIMV20TA22 PO
[2019-07-03 21:51] VITALS: BP 136/88
--- NOTE | 2019-07-04 07:16 | REP ---
Trauma. Technique: Portable AP and lateral views of the left forearm. Findings: Soft-tissue swelling overlying the distal third of the forearm is appreciated. No subcutaneous emphysema or foreign body. Osseous structures are intact and there is no fracture or dislocation. Impression: Soft-tissue swelling. No acute fracture or dislocation. Electronically Signed by Javon Aleman MD 07/04/2019 07:07 A
== END 2019-07-03 21:52 | disposition home or self-care (01) ==
LOC: M ED 20:16
DX: S59.912A Unspecified injury of left forearm, initial encounter (principal); W22.8XXA Striking against or struck by other objects, initial encounter; Y92.018 Other place in single-family (private) house as the place of occurrence of the external cause; Z79.899 Other long term (current) drug therapy; Z79.82 Long term (current) use of aspirin

== ENCOUNTER → 2019-07-05 | Outpatient (CLI) | payer MEDICARE ==
[2019-07-05 10:48] LABS: HEMOGLOBIN 11.6 g/dl (12.0-15.5); MEAN CORPUSCULAR HEMOGLOBIN 30.8 pg (27.0-33.0); MEAN CORPUSCULAR HGB CONC 32.2 g/dl (32.0-36.5); MEAN CORPUSCULAR VOLUME 95.5 fl (80.0-96.0); PLATELET COUNT, AUTOMATED 277 10^3/uL (150-450); RED BLOOD COUNT 3.77 10^6/uL (4.00-5.40); WHITE BLOOD COUNT 5.5 10^3/uL (4.0-10.0)
[2019-07-05 11:14] LABS: BLOOD UREA NITROGEN 12 MG/DL (7-18); CARBON DIOXIDE LEVEL 29 MEQ/L (21-32); CHLORIDE LEVEL 102 MEQ/L (98-107); GLOMERULAR FILTRATION RATE > 60.0 (>45); GLUCOSE, FASTING 232 MG/DL (70-100); POTASSIUM SERUM 4.2 MEQ/L (3.5-5.1); SODIUM LEVEL 136 MEQ/L (136-145); TRIGLYCERIDES LEVEL 161 MG/DL (<150)
[2019-07-05 11:15] LABS: CHOLESTEROL LEVEL 150 MG/DL (<200); HDL CHOLESTEROL 40 MG/DL (>40); LDL CHOLESTEROL 78 MG/DL (<100); NON-HDL-C 110 MG/DL
[2019-07-05 11:22] LABS: CREATININE, URINE 95.1 MG/DL; MALB URINE SIEMENS 11.5 MG/L
[2019-07-05 19:27] LABS: HEMOGLOBIN A1c 8.1 %
== END ==
LOC: M LAB 09:35
PROVIDERS: ATTEND Internal Medicine
DX: E11.8 Type 2 diabetes mellitus with unspecified complications (principal); D50.9 Iron deficiency anemia, unspecified; Z83.438 Family history of other disorder of lipoprotein metabolism and other lipidemia

== ENCOUNTER → 2019-07-14 | Outpatient (CLI) | payer MEDICARE ==
--- NOTE | 2019-07-14 15:24 | REP ---
Chest x-ray: Two views. History: Chest wall pain. Comparison chest x-ray: September 06. Findings: The lungs are symmetrically aerated and clear. The pleural angles are sharp. Heart size is normal. Pulmonary vasculature is not increased. No significant bony abnormality. Impression: No active disease. Electronically Signed by Delmer Ariza MD 07/14/2019 03:16 P
== END ==
LOC: M RAD 14:55
PROVIDERS: ATTEND Internal Medicine
DX: R07.89 Other chest pain (principal)

== ENCOUNTER 2019-10-26 09:33 | Emergency (ER) | payer MEDICARE, OTHER ==
[~2019-10-26] VITALS: Ht 170.2 cm; Wt 72.6 kg
[~2019-10-26 09:33] MED LIST changes: -METF-791 PO; +METF-838 PO; +VITA-243 PO; -VITA500T PO
[2019-10-26] MEDS ORDERED: ASPI500T5 PO (09:46)
[2019-10-26] MEDS ORDERED: NS 1,000 ML IV ONE (10:15)
[2019-10-26] MEDS ORDERED: cefTRIAXone SOD 1 GM in D5W MINI-BAG PLUS 50 ML IV ONE (10:15)
[2019-10-26] MEDS ORDERED: ONDANSETRON 4MG/2ML VIAL IV ONE (10:15)
[2019-10-26] MEDS ORDERED: ACETAMINOPHEN 325 MG TAB PO ONE (10:30)
[2019-10-26 10:45] LABS: BASO % 0.2 % (0.0-1.0); EOS % 0.3 % (0.0-3.0); HEMATOCRIT 36.2 % (36.0-47.0); HEMOGLOBIN 11.9 g/dl (12.0-15.5); LYMPH # 0.8 10^3/uL (1.5-5.0); LYMPH % 7.4 % (24.0-44.0); MEAN CORPUSCULAR HEMOGLOBIN 31.2 pg (27.0-33.0); MEAN CORPUSCULAR HGB CONC 32.9 g/dl (32.0-36.5); MONO # 1.1 10^3/uL (0.0-0.8); MONO % 10.7 % (0.0-5.0); NEUTROPHILS # 8.6 10^3/uL (1.5-8.5); PLATELET COUNT, AUTOMATED 218 10^3/uL (150-450); RED BLOOD COUNT 3.81 10^6/uL (4.00-5.40); WHITE BLOOD COUNT 10.6 10^3/uL (4.0-10.0)
[2019-10-26 11:12] LABS: ALBUMIN 3.8 GM/DL (3.2-5.2); ALT/SGPT 35 U/L (12-78); BILIRUBIN,DIRECT 0.2 MG/DL (0.0-0.2); BILIRUBIN,TOTAL 0.7 MG/DL (0.2-1.0); BLOOD UREA NITROGEN 8 MG/DL (7-18); CALCIUM LEVEL 9.1 MG/DL (8.8-10.2); CARBON DIOXIDE LEVEL 24 MEQ/L (21-32); CHLORIDE LEVEL 104 MEQ/L (98-107); GLOMERULAR FILTRATION RATE > 60.0 (>45); GLUCOSE, FASTING 210 MG/DL (70-100); POTASSIUM SERUM 3.9 MEQ/L (3.5-5.1); SODIUM LEVEL 136 MEQ/L (136-145); TOTAL PROTEIN 6.8 GM/DL (6.4-8.2)
--- NOTE | 2019-10-26 12:06 | REP ---
Clinical: Right flank pain. Technique: Axial noncontrast images from the lung bases to the pubic symphysis with coronal and sagittal re-formations. Findings: Mild right-sided perinephric and periureteral stranding along with hydroureteronephrosis is appreciated although no obvious intrarenal or obstructing ureteral calculus is identified. Differential diagnosis includes a recently passed renal stone versus pyelonephritis and correlation is recommended. Left kidney/ureter is relatively normal. Bladder is unremarkable. Liver, spleen, pancreas, gallbladder, and bilateral adrenal glands are normal. The enteric system is without obstruction or acute inflammatory process. Pelvis demonstrates normal bladder and evidence for prior hysterectomy. No ascites. No free air. No adenopathy. Abdominal aorta without aneurysm. Musculoskeletal structures are intact. Impression: 1. Right-sided hydroureteronephrosis with associated inflammatory stranding, but no obvious intrarenal or obstructing ureteral calculus. Findings suggest pyelonephritis versus recently passed renal stone. The left kidney and bladder appear relatively normal. 2. No further acute abdominopelvic pathology appreciated. Electronically Signed by Javon Aleman MD 10/26/2019 11:58 A
[2019-10-26] MEDS ORDERED: LEVO750T13 PO (12:33)
[2019-10-26 12:38] VITALS: BP 126/58
== END 2019-10-26 12:39 | disposition home or self-care (01) ==
LOC: M ED 09:33
DX: N12 Tubulo-interstitial nephritis, not specified as acute or chronic (principal); I10 Essential (primary) hypertension; E78.5 Hyperlipidemia, unspecified; F33.9 Major depressive disorder, recurrent, unspecified; F41.9 Anxiety disorder, unspecified; G43.909 Migraine, unspecified, not intractable, without status migrainosus; Z79.899 Other long term (current) drug therapy; Z79.82 Long term (current) use of aspirin
CPT/HCPCS: 74176; 80048; 80076; 81001; 83605; 85025; 87040; 87088; 87186; 96365; 96375; 99284; J0696; J2405

== ENCOUNTER → 2019-11-02 | Outpatient (CLI) | payer MEDICARE ==
[~2019-11-02] MED LIST changes: +ACET1TAB55 PO; +ALEN35TA54 PO; +ASPI500T5 PO; -ASPI81TA85 PO; +ASPI81TA86 PO; +CALCD50TA PO; +ESTR1CRE VA; +GABA800T4 PO; +GLIP10TA6 PO; +LEVO750T13 PO; +METF500T13 PO; +RA M10TA PO; +SUMA4INJ3 SC; +TRAM50TA2 PO; +TRUL10IN SC
[2019-11-02 17:21] LABS: HEMATOCRIT 38.8 % (36.0-47.0); HEMOGLOBIN 12.5 g/dl (12.0-15.5); MEAN CORPUSCULAR HEMOGLOBIN 30.2 pg (27.0-33.0); MEAN CORPUSCULAR HGB CONC 32.2 g/dl (32.0-36.5); MEAN CORPUSCULAR VOLUME 93.7 fl (80.0-96.0); PLATELET COUNT, AUTOMATED 358 10^3/uL (150-450); RED BLOOD COUNT 4.14 10^6/uL (4.00-5.40); WHITE BLOOD COUNT 7.3 10^3/uL (4.0-10.0)
[2019-11-02 17:40] LABS: HEMOGLOBIN A1c 7.6 %
[2019-11-02 17:48] LABS: MAGNESIUM LEVEL 1.6 MG/DL (1.8-2.4); PERCENT SATURATION 30.9 % (13.2-45.0); PHOSPHORUS LEVEL 3.8 MG/DL (2.5-4.9)
[2019-11-02 18:00] LABS: MALB URINE SIEMENS 53.3 MG/L
== END ==
LOC: M LAB 15:56
PROVIDERS: ATTEND Internal Medicine
DX: E11.8 Type 2 diabetes mellitus with unspecified complications (principal); K31.819 Angiodysplasia of stomach and duodenum without bleeding

== ENCOUNTER → 2020-01-16 | Outpatient (CLI) | payer MEDICARE ==
--- NOTE | 2020-01-27 12:51 | REPPI ---
CHEST X-RAY: 2-VIEWS HISTORY: Cough for 10 days. COMPARISON: Chest x-ray 07/24/2019. FINDINGS: The lungs are symmetrically aerated and free of infiltrate. Pleural angles are sharp. Heart is not enlarged. Pulmonary vasculature is not increased. No bony destructive lesion is seen. IMPRESSION: No active disease. MTDD
== END ==
LOC: M PLAIMG 08:16
PROVIDERS: ATTEND Family Medicine
DX: R05 Cough (principal)

== ENCOUNTER → 2020-01-24 | Outpatient (CLI) | payer MEDICARE ==
--- NOTE | 2020-01-24 09:28 | REPMRS ---
Patient History The patient states she had a clinical breast exam in 2019. Family history of breast cancer at age 42 in maternal half sister, colorectal cancer at age 50 or over in paternal grandmother, colorectal cancer at age 50 or over in paternal grandfather, colorectal cancer at age 50 or over in father. Taking estrogen for 1 month. Took unspecified hormones for 27 years. 3D TOMOSYNTHESIS WAS PERFORMED. [facility] lifetime risk for breast cancer is 4.3%. MARGIE Garcia. Digital Woman Screen Mammo: January 24, 2020 - Exam #: [id number] Bilateral CC and MLO view(s) were taken. Technologist: Liudmila Issa, Technologist Prior study comparison: January 11, 2019, bilateral digital woman screen mammo performed at [facility]. November 30, 2017, bilateral digital woman screen mammo performed at [facility]. FINDINGS: There are scattered fibroglandular densities. There has been no change in the appearance of the mammogram from the prior studies. There is a mild amount of residual fibroglandular tissue which is fairly symmetric. There is no interval development of dominant mass, architectural distortion, or clustered microcalcification suggestive of malignancy. Assessment: BI-RADS/ACR category 1 mammogram. Negative Mammogram. Recommendation Routine screening mammogram in 1 year (for women over age 40). This mammogram was interpreted with the aid of an FDA-approved computer-aided dectection system. Electronically Signed By: Nj Shepherd MD 01/24/20 0927
== END ==
LOC: M WHC 08:27
PROVIDERS: ATTEND Nurse Practitioner Women's Health
DX: Z12.31 Encounter for screening mammogram for malignant neoplasm of breast (principal); Z80.0 Family history of malignant neoplasm of digestive organs; Z92.23 Personal history of estrogen therapy; Z92.29 Personal history of other drug therapy

== ENCOUNTER 2020-01-30 15:54 | Inpatient (IN) | payer MEDICARE ==
[~2020-01-30] VITALS: Ht 170.2 cm; Wt 73.1 kg
[~2020-01-30 15:54] MED LIST changes: -ACET1TAB55 PO; -ALEN35TA54 PO; -CALCD50TA PO; -ESTR1CRE VA; -GABA800T4 PO; -GLIP10TA6 PO; -METF500T13 PO; -RA M10TA PO; -SUMA4INJ3 SC; -TRAM50TA2 PO; -TRUL10IN SC
[2020-01-30 18:48] LABS: BASO # 0.1 10^3/uL (0.0-0.2); BASO % 0.4 % (0.0-1.0); EOS # 0.1 10^3/uL (0.0-0.5); EOS % 1.1 % (0.0-3.0); HEMOGLOBIN 11.5 g/dl (12.0-15.5); LYMPH # 1.8 10^3/uL (1.5-5.0); LYMPH % 15.8 % (24.0-44.0); MEAN CORPUSCULAR HEMOGLOBIN 30.7 pg (27.0-33.0); MEAN CORPUSCULAR HGB CONC 32.9 g/dl (32.0-36.5); MEAN CORPUSCULAR VOLUME 93.6 fl (80.0-96.0); MONO # 0.8 10^3/uL (0.0-0.8); MONO % 7.5 % (0.0-5.0); NEUTROPHILS # 8.4 10^3/uL (1.5-8.5); NEUTROPHILS % 74.7 % (36.0-66.0); PLATELET COUNT, AUTOMATED 300 10^3/uL (150-450); RED BLOOD COUNT 3.74 10^6/uL (4.00-5.40); WHITE BLOOD COUNT 11.2 10^3/uL (4.0-10.0)
[2020-01-30 19:22] LABS: ALBUMIN 4.2 GM/DL (3.2-5.2); ALT/SGPT 42 U/L (12-78); BILIRUBIN,DIRECT 0.1 MG/DL (0.0-0.2); BILIRUBIN,TOTAL 0.6 MG/DL (0.2-1.0); LIPASE 61 U/L (73-393)
[2020-01-30] MEDS ORDERED: KETOROLAC 30 MG/ML 1ML VIAL IV ONE (19:30)
[2020-01-30] MEDS ORDERED: ISOVUE-370 76% 100ML VIAL As Ordered ONE (19:49)
[2020-01-30] MEDS ORDERED: PROPRANOLOL 60 MG LA CAP PO SCH (21:00)
[2020-01-30] MEDS ORDERED: ATORVASTATIN 20 MG TAB PO SCH (21:00)
[2020-01-30] MEDS ORDERED: HumaLOG INSULIN (NovoLOG) PER UNIT SC SCH (21:00)
[2020-01-30] MEDS ORDERED: MORPHINE 4 MG/ML 1ML VIAL/SYRINGE (J2270) IV ONE (21:15)
[2020-01-30] MEDS ORDERED: ONDANSETRON 4MG/2ML VIAL IV ONE (21:15)
--- NOTE | 2020-01-30 21:34 | REPVR ---
PROCEDURE INFORMATION: Exam: CT Abdomen And Pelvis With Contrast Exam date and time: 01/30/2020 8:17 PM Age: 69 years old Clinical indication: Abdominal pain; Additional info: Abd pain S/P fall, lumbar spine ttp TECHNIQUE: Imaging protocol: Computed tomography of the abdomen and pelvis with intravenous contrast. Radiation optimization: All CT scans at this facility use at least one of these dose optimization techniques: automated exposure control; mA and/or kV adjustment per patient size (includes targeted exams where dose is matched to clinical indication); or iterative reconstruction. Contrast material: ISOVUE 370; Contrast volume: 100 ml; Contrast route: INTRAVENOUS (IV); COMPARISON: CT ABD PELVIS W/O CONTRAST 10/26/2019 11:38 AM FINDINGS: Lungs: Clear appearing lung bases. Heart: There is mild prominence of the heart. Liver: Normal appearing liver. Gallbladder and bile ducts: Common bile duct is normal in size. Normal appearing gallbladder. Pancreas: At the head of the pancreas there is a 1.2 cm x 8 mm cystic structure which is not clearly seen on the previous 2 CTs. This could represent a cystic neoplasm including IPMN and the patient should have a follow-up CT scan in no longer than 3 months for re-evaluation of this structure. Spleen: Normal appearing spleen. Normal appearing spleen. Adrenals: Normal adrenal glands. Kidneys and ureters: Normal. No hydronephrosis. Stomach and bowel: Unremarkable. No obstruction. No mucosal thickening. Intraperitoneal space: There is no evidence of pneumoperitoneum. Vasculature: The aorta is normal in size. Lymph nodes: Unremarkable. No enlarged lymph nodes. Urinary bladder: Normal appearing urinary bladder. Reproductive: Unremarkable as visualized. Bones/joints: There is a acute complex fracture of the superior portion of the T12 vertebra. There are is a horizontal and vertical fracture component. This produces a moderate posterior bony ridge causing impression on the thecal sac at the upper margin of T12. IMPRESSION: 1. There is a complex fracture of the upper portion of the T12 vertebral with loss of 1/4 of the vertebral height and horizontal and vertical fracture lines. This creates a posterior bony ridge impressing on the thecal sac. This is an acute fracture. 2. 1.2 cm x 8 mm oval cystic lesion at the head of the pancreas. This could represent a cystic neoplasm and I would recommend a follow-up CT scan in no longer than 3 months for re-evaluation and to document stability. This is because of the possibility IPMN which needs to be followed with sequential CTs. Electronically signed by: Jesús Childs On 01/30/2020 21:34:08 PM
--- NOTE | 2020-01-30 22:11 | HPEPDOC ---
[facility] Medical History & Physical Date of Admission Jan 30, 2020 Date of Service: Jan 30, 2020 Primary Care Physician: Bennie Freeman MD Attending Physician: LAMBERT HODGSON MD History and Physical TIME OF SERVICE: 10:55 PM CHIEF COMPLAINT: back pain HISTORY OF PRESENT ILLNESS: This 61 age old female presented with complaints of back pain that occured as a result of her falling off her ladder while she was trying to change her bird fed. She denied feeling dizzy, having CP, n/d or any other acute c/o prior to the fall. When she fell off the ladder she landed on her feet but then lost balance and landed on her back. When she landed on her back she heard a crack sound. She had to crawl into her house to call for help. She was able to walk to her car; her drove her to the hospital. She has not had urinary or fecal incontinence. REVIEW OF SYSTEMS: 12 point review of systems negative except as listed in HPI PAST MEDICAL/ SURGICAL HISTORY: Diabetes Hypertension Depression Migraines CHANO doesn't use CPAP Appendectomy Hysterectomy Elbow surgery Iron deficiency anemia/watermelon stomach SOCIAL HISTORY: She doesn't smoke She drinks socially She doesn't use recreational drugs FAMILY HISTORY: Father of [place] Mother of heart failure Mother had MDS ALLERGIES: Please see below. HOME MEDICATIONS: Please see below. PHYSICAL EXAMINATION: Vital Signs Date Time Temp Pulse Resp B/P (MAP) Pulse Ox O2 Delivery O2 Flow Rate FiO2 01/30/20 15:54 97.4 69 24 127/87 (100) 99 Room Air GEN: well-nourished / well developed/ NAD INTEGUMENT: not flushed/ not jaundice CVS: RRR/NMRG/ radial pulses intact LUNGS: able to speak full sentences without stopping to take a breath / no coughing / lungs are clear to auscultation bilaterally on room air ABDOMEN: Contour (flat) / soft & not tender with palpation MSK/EXTREMITIES: NCAT / range of motion intact in all 4 extremities / no scoliosis / no kyphosis NEURO: CN 2-12 are grossly intact / speech is not dysarthric / strength is 5/5 / DTRs (0-4+) PSYCH: alert and oriented to person place and time/ able to understand and follow all commands LABORATORY DATA: 01/30/20 18:27 Immature Granulocyte % (Auto) 0.5, Neutrophils (%) (Auto) 74.7H, Lymphocytes (%) (Auto) 15.8L, Monocytes (%) (Auto) 7.5H, Eosinophils (%) (Auto) 1.1, Basophils (%) (Auto) 0.4, Neutrophils # (Auto) 8.4, Lymphocytes # (Auto) 1.8, Monocytes # (Auto) 0.8, Eosinophils # (Auto) 0.1, Basophils # (Auto) 0.1, Nucleated Red Blood Cells % (auto) 0.0, Total Bilirubin 0.6, Direct Bilirubin 0.1, Aspartate Amino Transf (AST/SGOT) 27, Alanine Aminotransferase (ALT/SGPT) 42, Alkaline Phosphatase 92, Total Protein 7.0, Albumin 4.2, Albumin/Globulin Ratio 1.5, Lipase 61L 01/30/20 21:54: Urine Color YELLOW, Urine Appearance CLEAR, Urine pH 7.0, Urine Specific [place] 1.041, Urine Protein NEGATIVE, Urine Glucose (UA) NEGATIVE, Urine Ketones NEGATIVE, Urine Blood NEGATIVE, Urine Nitrite NEGATIVE, Urine Bilirubin NEGATIVE, Urine Urobilinogen 0.2, Urine Leukocyte Esterase NEGATIVE, Urine WBC (Auto) 3, Urine RBC (Auto) 1, Urine Hyaline Casts (Auto) 0, Urine Bacteria (Auto ) NEGATIVE, Urine Squamous Epithelial Cells 1, Urine Mucus (Auto) SMALL, Urine Sperm (Auto) IMAGING: CT abd/pelvis "IMPRESSION: 1. There is a complex fracture of the upper portion of the T12 vertebral with loss of 1/4 of the vertebral height and horizontal and vertical fracture lines. This creates a posterior bony ridge impressing on the thecal sac. This is an acute fracture. 2. 1.2 cm x 8 mm oval cystic lesion at the head of the pancreas. This could represent a cystic neoplasm and I would recommend a follow-up CT scan in no longer than 3 months for re-evaluation and to document stability. This is because of the possibility IPMN which needs to be followed with sequential CTs." MICROBIOLOGY: Please see below. ASSESSMENT: is a 69 yr old F w hx of Diabetes, Hypertension, Depression and migranes who is admitted for management of a T12 verterbral fx. PLAN: 1. T12 Fx/ Osteoporosis Plan: bed rest pending Ortho eval / day time team may consult PT consult once cleared by Ortho/ Morphine for pain / she will need work-up to r/o secondary causes of Osteoporosis which can be done on an out pt prior to selecting medications / in the mean while will start calcium w vitamin D 2. NN Anemia she has a hx of QUAN Plan: trend Hg 3. Pancreatic Lesion Plan: f/u w PCP for imaging studies 4. NIDDM Plan: diabetic diet / f/u accuchecks & A1C / hypoglycemia protocol / sliding scale insulin / hold oral anti-glycemics 5. Hypertension Plan: losartan and propranolol 6. Depression Plan: duloxetine 7. Migraines Plan: sumatriptan DVT PROPHYLAXIS: Lovenox DISPOSITION: home after more than 2 midnight's stay Home Medications Scheduled Atorvastatin Calcium (Atorvastatin Calcium) 40 Mg Tab, 40 MG PO QHS Dulaglutide (Trulicity) 0.75 Mg/0.5 Ml Pen.injctr, 0.75 MG SC QWEEK THURSDAY AT DINNERTIME Duloxetine Hcl (Duloxetine HCl) 60 Mg Cap, 60 MG PO BID Estradiol (Estrace) 42.5 Gm Cream.appl, 1 DOSE VA ASDIRECTED PATIENT TAKES TWO OR THREE TIMES PER WEEK AT QHS Gabapentin (Gabapentin) 800 Mg Tablet, 800 MG PO TID Glipizide (Glipizide) 10 Mg Tablet, 20 MG PO BID Losartan Potassium (Losartan Potassium) 25 Mg Tab, 25 MG PO DAILY Melatonin (Melatonin) 10 Mg Tablet, 10 MG PO QHS Metformin HCl (Metformin HCl) 500 Mg Tablet, 1,000 MG PO BID Propranolol HCl (Propranolol HCl ER) 60 Mg Cap, 60 MG PO QHS Scheduled PRN Sumatriptan Succinate (Sumatriptan Succinate) 4 Mg/0.5 Ml Pen.injctr, 4 MG SC DAILY PRN for MIGRAINE Allergies Coded Allergies: No Known Allergies (Verified , 07/03/19) A-FIB/CHADSVASC A-FIB History Current/History of A-Fib/PAF?: No Current PO Anticoag Therapy: No LAMBERT HODGSON MD Jan 30, 2020 22:11
[2020-01-30] MEDS ORDERED: MOM 30ML SUSPENSION UDC PO PRN (22:15)
[2020-01-30] MEDS ORDERED: ACETAMINOPHEN TAB 650MG DOSE (2X325MG) PO PRN (22:15)
[2020-01-30] MEDS ORDERED: MORPHINE 2 MG/ML 1ML VIAL (J2270) IV PRN (22:15)
[2020-01-30] MEDS ORDERED: MAALOX 30 ML SUSP *UDC PO PRN (22:15)
[2020-01-30 22:24] LABS: BLOOD UREA NITROGEN 12 MG/DL (7-18); CREATININE FOR GFR 0.67 MG/DL (0.55-1.30); GLOMERULAR FILTRATION RATE > 60.0 (>45); NT-PRO BNP 52 PG/ML (<125)
[2020-01-30] MEDS ORDERED: ESTR1CRE VA (22:29)
[2020-01-30] MEDS ORDERED: METF500T13 PO (22:29)
[2020-01-30] MEDS ORDERED: TRUL10IN SC (22:29)
[2020-01-30] MEDS ORDERED: GABA800T4 PO (22:29)
[2020-01-30] MEDS ORDERED: SUMA4INJ3 SC (22:29)
[2020-01-30] MEDS ORDERED: GLIP10TA6 PO (22:29)
[2020-01-30] MEDS ORDERED: RA M10TA PO (22:29)
[2020-01-30 23:20] VITALS: BP 125/56
[2020-01-30] MEDS ORDERED: RAMELTEON 8 MG TAB (ROZEREM) PO PRN (23:45)
[2020-01-30] MEDS ORDERED: TRULICITY 0.75 MG SC SCH (23:45)
[2020-01-30] MEDS ORDERED: SUMAtriptan SUCCINATE 6 MG/0.5 ML VIAL SC PRN (23:45)
[2020-01-30] MEDS ORDERED: GLUCAGON INJ 1MG VIAL SC PRN (23:45)
[2020-01-30] MEDS ORDERED: DEXTROSE 50% 50 ML SYRINGE IV PRN (23:45)
[2020-01-30] MEDS ORDERED: GLUCOSE 4GM CHEW TABLET PO PRN (23:45)
[2020-01-31] MEDS: DULoxetine 30 MG CAP (CYMBALTA) PO SCH ×2 (00:12→08:03)
[2020-01-31] MEDS: GABAPENTIN 400 MG CAP PO SCH ×2 (00:12→08:02)
[2020-01-31 05:48] LABS: HEMATOCRIT 33.2 % (36.0-47.0); HEMOGLOBIN 10.6 g/dl (12.0-15.5); MEAN CORPUSCULAR HEMOGLOBIN 30.3 pg (27.0-33.0); MEAN CORPUSCULAR HGB CONC 31.9 g/dl (32.0-36.5); MEAN CORPUSCULAR VOLUME 94.9 fl (80.0-96.0); PLATELET COUNT, AUTOMATED 263 10^3/uL (150-450); WHITE BLOOD COUNT 7.3 10^3/uL (4.0-10.0)
[2020-01-31 06:00] VITALS: BP 102/60
[2020-01-31 06:14] LABS: BLOOD UREA NITROGEN 15 MG/DL (7-18); CALCIUM LEVEL 8.7 MG/DL (8.8-10.2); CARBON DIOXIDE LEVEL 29 MEQ/L (21-32); CHLORIDE LEVEL 102 MEQ/L (98-107); CREATININE FOR GFR 0.83 MG/DL (0.55-1.30); GLOMERULAR FILTRATION RATE > 60.0 (>45); GLUCOSE, FASTING 221 MG/DL (70-100); POTASSIUM SERUM 3.8 MEQ/L (3.5-5.1); SODIUM LEVEL 137 MEQ/L (136-145)
[2020-01-31 08:02] VITALS: BP 108/62
[2020-01-31] MEDS: HumaLOG INSULIN (NovoLOG) PER UNIT SC SCH ×2 (08:02→12:25)
[2020-01-31] MEDS ORDERED: CALCIUM/VITAMIN D 500 MG TAB PO SCH (09:00)
[2020-01-31] MEDS ORDERED: ENOXAPARIN 40MG/0.4ML SYRINGE (J1650 PER 10MG) SC SCH (09:00)
[2020-01-31] MEDS ORDERED: LOSARTAN 25 MG TAB PO SCH (09:00)
[2020-01-31] MEDS ORDERED: traMADol 50 MG TAB PO PRN ×2 (11:30)
[2020-01-31] MEDS ORDERED: ACET1TAB55 PO (11:51)
[2020-01-31] MEDS ORDERED: ALEN35TA54 PO (11:51)
[2020-01-31] MEDS ORDERED: TRAM50TA2 PO (11:51)
[2020-01-31] MEDS ORDERED: CALCD50TA PO (11:51)
[2020-01-31 14:00] VITALS: BP 90/59
--- NOTE | 2020-01-31 19:34 | DS.PDOC ---
Discharge Summary General Date of Admission Jan 30, 2020 at 22:05 Date of Discharge 01/01/20 Discharge Summary PROCEDURES PERFORMED DURING STAY: [None]. ADMITTING DIAGNOSES: T12 Fx/ Osteoporosis NN Anemia Pancreatic Lesion NIDDM Hypertension Depression Migraines DISCHARGE DIAGNOSES: T12 Fx/ Osteoporosis NN Anemia Pancreatic Lesion NIDDM Hypertension Depression Migraines COMPLICATIONS/CHIEF COMPLAINT: Thoracic Vertebral Fracture. HISTORY OF PRESENT ILLNESS: This 61 age old female presented with complaints of back pain that occured as a result of her falling off her ladder while she was trying to change her bird fed. She denied feeling dizzy, having CP, n/d or any other acute c/o prior to the fall. When she fell off the ladder she landed on her feet but then lost balance and landed on her back. When she landed on her back she heard a crack sound. She had to crawl into her house to call for help. She was able to walk to her car; her drove her to the hospital. She has not had urinary or fecal incontinence. HOSPITAL COURSE: During hospital stay following issues addressed 1. T12 Fx/ Osteoporosis Ortho eval: recommended conservative treatment start calcium w vitamin D , alendronate 2. NN Anemia she has a hx of QUAN Follow-up with PCP 3. Pancreatic Lesion Plan: f/u w PCP for imaging studies 4. NIDDM Insulin sliding scale 5. Hypertension Plan: losartan and propranolol 6. Depression Plan: duloxetine 7. Migraines Plan: sumatriptan DISCHARGE MEDICATIONS: Please see below. ALLERGIES: Please see below. PHYSICAL EXAMINATION ON DISCHARGE: VITAL SIGNS: Please see below. GENERAL APPEARANCE: NAD HEENT: no scleral icterus, no JVD, EOMI CARDIOVASCULAR: S1S2 LUNGS: CTA ABDOMEN: soft & not tender w palpitation MUSCULOSKELETAL: no cyanosis, no swelling INTEGUMENT: no generalized palor NEUROLOGICAL: cranial nerve function from 2-12 intact intact, follows commands, speech not dysarthric LABORATORY DATA: Please see below. IMAGING: PROCEDURE INFORMATION: Exam: CT Abdomen And Pelvis With Contrast Exam date and time: 01/30/2020 8:17 PM Age: 69 years old Clinical indication: Abdominal pain; Additional info: Abd pain S/P fall, lumbar spine ttp TECHNIQUE: Imaging protocol: Computed tomography of the abdomen and pelvis with intravenous contrast. Radiation optimization: All CT scans at this facility use at least one of these dose optimization techniques: automated exposure control; mA and/or kV adjustment per patient size (includes targeted exams where dose is matched to clinical indication); or iterative reconstruction. Contrast material: ISOVUE 370; Contrast volume: 100 ml; Contrast route: INTRAVENOUS (IV); COMPARISON: CT ABD PELVIS W/O CONTRAST 10/26/2019 11:38 AM FINDINGS: Lungs: Clear appearing lung bases. Heart: There is mild prominence of the heart. Liver: Normal appearing liver. Gallbladder and bile ducts: Common bile duct is normal in size. Normal appearing gallbladder. Pancreas: At the head of the pancreas there is a 1.2 cm x 8 mm cystic structure which is not clearly seen on the previous 2 CTs. This could represent a cystic neoplasm including IPMN and the patient should have a follow-up CT scan in no longer than 3 months for re-evaluation of this structure. Spleen: Normal appearing spleen. Normal appearing spleen. Adrenals: Normal adrenal glands. Kidneys and ureters: Normal. No hydronephrosis. Stomach and bowel: Unremarkable. No obstruction. No mucosal thickening. Intraperitoneal space: There is no evidence of pneumoperitoneum. Vasculature: The aorta is normal in size. Lymph nodes: Unremarkable. No enlarged lymph nodes. Urinary bladder: Normal appearing urinary bladder. Reproductive: Unremarkable as visualized. Bones/joints: There is a acute complex fracture of the superior portion of the T12 vertebra. There are is a horizontal and vertical fracture component. This produces a moderate posterior bony ridge causing impression on the thecal sac at the upper margin of T12. IMPRESSION: 1. There is a complex fracture of the upper portion of the T12 vertebral with loss of 1/4 of the vertebral height and horizontal and vertical fracture lines. This creates a posterior bony ridge impressing on the thecal sac. This is an acute fracture. 2. 1.2 cm x 8 mm oval cystic lesion at the head of the pancreas. This could represent a cystic neoplasm and I would recommend a follow-up CT scan in no longer than 3 months for re-evaluation and to document stability. This is because of the possibility IPMN which needs to be followed with sequential CTs PROGNOSIS: Fair ACTIVITY: [As tolerated]. DIET: Diabetes DISCHARGE PLAN: Follow-up with orthopedic surgeon and PCP DISPOSITION: 01 Home, Self-Care. DISCHARGE CONDITION: [Stable]. TIME SPENT ON DISCHARGE: Greater than 20 minutes. Vital Signs/I&Os Vital Signs Date Time Temp Pulse Resp B/P (MAP) Pulse Ox O2 Delivery O2 Flow Rate FiO2 01/31/20 14:00 98.1 75 17 90/59 (69) 94 Room Air I&O- Last 24 Hours up to 6 AM 01/31/20 06:00 Intake Total 220 ml Output Total 0 ml Balance 220 ml Laboratory Data Labs 24H Laboratory Tests 2 01/30/20 21:54: Urine Color YELLOW, Urine Appearance CLEAR, Urine pH 7.0, Urine Specific [place] 1.041, Urine Protein NEGATIVE, Urine Glucose (UA) NEGATIVE, Urine Ketones NEGATIVE, Urine Blood NEGATIVE, Urine Nitrite NEGATIVE, Urine Bilirubin NEGATIVE, Urine Urobilinogen 0.2, Urine Leukocyte Esterase NEGATIVE, Urine WBC (Auto) 3, Urine RBC (Auto) 1, Urine Hyaline Casts (Auto) 0, Urine Bacteria (Auto) NEGATIVE, Urine Squamous Epithelial Cells 1, Urine Mucus (Auto) SMALL, Urine Sperm (Auto) 01/30/20 23:31: Bedside Glucose (Misc Panel) 202H 01/31/20 05:20: Nucleated Red Blood Cells % (auto) 0.0, Anion Gap 6L, Glomerular Filtration Rate > 60.0, Calcium Level 8.7L CBC/BMP Laboratory Tests 01/31/20 05:20 FSBS Laboratory Tests Test 01/30/20 23:31 Range/Units Bedside Glucose (Misc Panel) 202 80-115 MG/DL Discharge Medications Scheduled Alendronate Sodium (Alendronate Sodium) 35 Mg Tablet, 35 MG PO Q7D Atorvastatin Calcium (Atorvastatin Calcium) 40 Mg Tab, 40 MG PO QHS, (Reported) Calcium/Vitamin D (Calcium 500-Vit D3 200 Tablet) 1 Each Tablet, 1,000 MG PO DAILY Dulaglutide (Trulicity) 0.75 Mg/0.5 Ml Pen.injctr, 0.75 MG SC QWEEK, (Reported) THURSDAY AT DINNERTIME Duloxetine Hcl (Duloxetine HCl) 60 Mg Cap, 60 MG PO BID, (Reported) Estradiol (Estrace) 42.5 Gm Cream.appl, 1 DOSE VA ASDIRECTED, (Reported) PATIENT TAKES TWO OR THREE TIMES PER WEEK AT QHS Gabapentin (Gabapentin) 800 Mg Tablet, 800 MG PO TID, (Reported) Glipizide (Glipizide) 10 Mg Tablet, 20 MG PO BID, (Reported) Losartan Potassium (Losartan Potassium) 25 Mg Tab, 25 MG PO DAILY, (Reported) Melatonin (Melatonin) 10 Mg Tablet, 10 MG PO QHS, (Reported) Metformin HCl (Metformin HCl) 500 Mg Tablet, 1,000 MG PO BID, (Reported) Propranolol HCl (Propranolol HCl ER) 60 Mg Cap, 60 MG PO QHS, (Reported) Scheduled PRN Acetaminophen (Acetaminophen) 325 Mg Tablet, 650 MG PO Q4H PRN for PAIN OR FEVER Sumatriptan Succinate (Sumatriptan Succinate) 4 Mg/0.5 Ml Pen.injctr, 4 MG SC DAILY PRN for MIGRAINE, (Reported) Tramadol HCl (Tramadol HCl) 50 Mg Tablet, 100 MG PO Q6HP PRN for SEVERE PAIN (PS 8-10) Allergies Coded Allergies: No Known Allergies (Verified , 07/03/19) JOLENE TRAN DO Jan 31, 2020 19:34
--- NOTE | 2020-02-01 06:47 | CR ---
DATE OF CONSULTATION: 01/31/2020 CHIEF COMPLAINT: T12 compression fracture. HISTORY OF PRESENT ILLNESS: This 61-year-old female fell while changing her bird feeder. She fell directly onto her bottom. She had pain in her lower back. No complaints of neurologic symptoms, like numbness, weakness, tingling in her lower extremities, change in her bowel or bladder habits, or anton-anal numbness. She was crawling after. She had some difficulty ambulating. There was a pop when she landed. She is seen in our [facility] today, [facility]. MEDICAL HISTORY: 1. Diabetes. 2. Hypertension. 3. Depression. 4. Migraines. 5. Obstructive sleep apnea. 6. Appendectomy. 7. Hysterectomy. 8. Elbow surgery. 9. Iron deficiency anemia. She said she is disabled. MEDICATIONS: Atorvastatin, Trulity, duloxetine, estradiol, gabapentin, glipizide, losartan, melatonin, propranolol. ALLERGIES: No known drug allergies. SOCIAL HISTORY: She does not smoke. She drinks socially. Does not use recreational drugs. PHYSICAL EXAMINATION: This is a normal-appearing female who looks her stated age. Vital signs are stable. She is able to turn in bed. No cervical spine tenderness. No steps or gaps. There is tenderness over T12 and spinous process. No off-midline tenderness. Normal sensation.. Normal sensation in her lower extremities, L2-S1. Strength 5/5 in L2-S1. Normal reflexes at the knees and ankles. Plantars are downgoing. There is hyperreflexion in the lower extremities. Feet are warm and well perfused. Strong pedal pulses. CT scan of the chest, abdomen, and pelvis was reviewed. This shows a T12 compression fracture. No obvious retropulsion. There is mild height loss. There is horizontal and vertical fracture lines. There is slight bony ridge causing compression of the thecal sac at the upper margin of T12. ASSESSMENT AND PLAN: This 69-year-old female has a T12 compression fracture with no obvious neurologic deficits. She can be weightbearing as tolerated and out of bed as tolerated. If she is having difficulty mobilizing, she can use a walker and/or a back brace as needed. Will have her assessed by the physical therapy (PT) team to ensure safety with mobilization and discharged home. She can be WBAT and AAT. Followup as needed in the office 2 weeks post discharge. I will not follow this patient while in the hospital. Thank you very much for the consult. BABATUNDE
== END 2020-01-31 15:32 | disposition home health service (06) | DRG 552 ==
LOC: M ED 15:54 → M ED INP 22:05 → M MS5PR 23:20
PROVIDERS: ADMIT Internal Medicine; ATTEND Internal Medicine
DX: S22.080A Wedge compression fracture of T11-T12 vertebra, initial encounter for closed fracture (principal); E11.9 Type 2 diabetes mellitus without complications; I10 Essential (primary) hypertension; F32.9 Major depressive disorder, single episode, unspecified; G43.909 Migraine, unspecified, not intractable, without status migrainosus; M81.0 Age-related osteoporosis without current pathological fracture; G47.33 Obstructive sleep apnea (adult) (pediatric); D50.9 Iron deficiency anemia, unspecified; D64.9 Anemia, unspecified; Z79.84 Long term (current) use of oral hypoglycemic drugs; Z79.899 Other long term (current) drug therapy; W11.XXXA Fall on and from ladder, initial encounter; Y92.017 Garden or yard in single-family (private) house as the place of occurrence of the external cause; Y99.8 Other external cause status; Y93.H9 Activity, other involving exterior property and land maintenance, building and construction

== ENCOUNTER → 2020-03-06 | Outpatient (CLI) | payer MEDICARE ==
[~2020-03-06] MED LIST changes: +ACET1TAB55 PO; +ALEN35TA54 PO; +CALCD50TA PO; +ESTR1CRE VA; +GABA800T4 PO; +GLIP10TA6 PO; +METF500T13 PO; +RA M10TA PO; +SUMA4INJ3 SC; +TRAM50TA2 PO; +TRUL10IN SC
--- NOTE | 2020-03-06 13:46 | DEXA ---
INDICATION: Z87.39 HX OF OSTEOPOROSIS. COMPARISON: Comparison study October 05, 2014. TECHNIQUE: Bone density was measured using dual-energy x-ray absorptionmetry (DEXA). FINDINGS: AP SPINE L1-L4 BMD 0.861 g/cm2 Young Adult T-Score -2.7 Age Matched Z-Score -1.0. LT FEMUR, TOTAL BMD 0.865 g/cm2 Young Adult T-Score -1.1 Age Matched Z-Score 0.2. LT NECK BMD 0.763 g/cm2 Young Adult T-Score -2.0 Age Matched Z-Score -0.4. RT FEMUR, TOTAL BMD 0.891 g/cm2 Young Adult T-Score -0.9 Age Matched Z-Score 0.4. RT NECK BMD 0.790 g/cm2 Young Adult T-Score -1.8 Age Matched Z-Score -0.2. IMPRESSION: There is osteoporosis of the spine. There is low bone density of the left hip. There is low bone density of the right hip. The density of the spine has decreased 14.2% since the initial exam on June 05, 1999. The density of the spine decrease 0.5% since most recent exam on October 05, 2014. The density of the left hip has decreased 9.4% since initial exam on June 05, 2003. The density of the left hip has decreased 7.2% since most recent exam on October 05, 2014. The density of the right hip has decreased 10.5% since the initial exam on June 05, 2003. The density of the right hip has decrease 6.5% since the most recent exam on October 05, 2014. FOLLOW-UP: Recommendation for the next bone density exam: 2 years. <Electronically signed by Berto Ariza > 03/06/20 [id number]
== END ==
LOC: M WHC 12:48
PROVIDERS: ATTEND Student in an Organized Health Care Education/Training Program
DX: M81.0 Age-related osteoporosis without current pathological fracture (principal); M85.851 Other specified disorders of bone density and structure, right thigh; M85.852 Other specified disorders of bone density and structure, left thigh

== ENCOUNTER → 2020-03-16 | Outpatient (CLI) | payer MEDICARE ==
--- NOTE | 2020-03-16 12:44 | REP ---
INDICATION: PANCREAS CYST. COMPARISON: CT 01/30/2020. TECHNIQUE: Multiple sequences obtained in the axial coronal planes prior to and following the intravenous administration of 14 mL ProHance. FINDINGS: The previously noted cystic structure in the region the pancreatic head is best visualized on the precontrast T2 weighted images. It measures approximately 11 x 8 mm. There is no significant internal enhancement following the administration of intravenous gadolinium. There are multiple other tiny cystic structures scattered throughout the pancreas. In the adjacent pancreatic head just superior to the aforementioned cyst there is a 7 mm oval cyst with no internal enhancement and 2 adjacent cysts measuring 4 mm and 2 mm in diameter. At the junction of the pancreatic head and body there are 2 adjacent cysts measuring 7 mm and 3 mm in diameter with no internal enhancement. Pancreatic body there are 2 adjacent cysts measuring 3 and 4 mm in diameter. Another is seen measuring 4 mm in diameter. A tiny cyst in the tail of the pancreas measures 2 mm. There are areas of fatty replacement of pancreatic parenchyma. The constellation of findings is likely indicative of prior pancreatitis. There is no pancreatic duct dilatation. The visualized liver, spleen, adrenals and kidneys are essentially unremarkable. There is a small subcentimeter cyst in the posterior left kidney. There is no adenopathy or free fluid in the visualized abdomen. IMPRESSION: Multiple tiny cystic structures scattered throughout the pancreas as discussed above with no abnormal pancreatic enhancement. The largest cyst is 11 x 8 mm, as was seen on the prior CT, with no internal enhancement. There are areas of fatty replacement of pancreatic parenchyma. Findings likely indicate prior pancreatitis. Recommend follow-up MRI of the pancreas in 1 year. <Electronically signed by Nj Shepherd > 03/16/20 [id number]
== END ==
LOC: M PLARAD 08:01
PROVIDERS: ATTEND Student in an Organized Health Care Education/Training Program
DX: K86.2 Cyst of pancreas (principal)

== ENCOUNTER → 2020-04-02 | Outpatient (CLI) | payer SELFPAY | LOC: M LABSMTC 13:22 | PROVIDERS: ATTEND Pediatrics | DX: Z20.828 Contact with and (suspected) exposure to other viral communicable diseases (principal) ==

== ENCOUNTER → 2020-05-18 | Outpatient (CLI) | payer MEDICARE ==
[~2020-05-18] MED LIST changes: -GLYB5TA GT; +GLYB5TAB6 GT; +LISI10TA22 PO; -LISI10TA4 PO
[2020-05-18 11:36] LABS: HEMATOCRIT 38.7 % (36.0-47.0); HEMOGLOBIN 12.5 g/dl (12.0-15.5); MEAN CORPUSCULAR HEMOGLOBIN 30.6 pg (27.0-33.0); MEAN CORPUSCULAR HGB CONC 32.3 g/dl (32.0-36.5); MEAN CORPUSCULAR VOLUME 94.9 fl (80.0-96.0); PLATELET COUNT, AUTOMATED 270 10^3/uL (150-450); RED BLOOD COUNT 4.08 10^6/uL (4.00-5.40); WHITE BLOOD COUNT 6.7 10^3/uL (4.0-10.0)
[2020-05-18 12:23] LABS: BLOOD UREA NITROGEN 16 MG/DL (7-18); CALCIUM LEVEL 9.4 MG/DL (8.8-10.2); CARBON DIOXIDE LEVEL 29 MEQ/L (21-32); CHLORIDE LEVEL 102 MEQ/L (98-107); CHOLESTEROL LEVEL 168 MG/DL (<200); CHOLESTEROL RISK RATIO 3.818 (<5); CREATININE FOR GFR 0.83 MG/DL (0.55-1.30); GLOMERULAR FILTRATION RATE > 60.0 (>45); GLUCOSE, FASTING 147 MG/DL (70-100); HDL CHOLESTEROL 44 MG/DL (>40); LDL CHOLESTEROL 79 MG/DL (<100); MAGNESIUM LEVEL 1.6 MG/DL (1.8-2.4); NON-HDL-C 124 MG/DL; SODIUM LEVEL 137 MEQ/L (136-145); TRIGLYCERIDES LEVEL 226 MG/DL (<150)
[2020-05-18 12:32] LABS: HEMOGLOBIN A1c 7.5 %
== END ==
LOC: M LAB 11:09
PROVIDERS: ATTEND Student in an Organized Health Care Education/Training Program
DX: K31.819 Angiodysplasia of stomach and duodenum without bleeding (principal); E11.8 Type 2 diabetes mellitus with unspecified complications; D50.9 Iron deficiency anemia, unspecified; I10 Essential (primary) hypertension

== ENCOUNTER → 2020-11-26 | Outpatient (REF) | payer MEDICARE ==
[~2020-11-26] MED LIST changes: -ALEN35TA54 PO; +ALEN35TA56 PO; +CEFD300C41 PO; +DOXY-350 PO; +LOSA25TA13 PO; -LOSA25TA14 PO; +PRED10TA2 PO; +PROAAER10 INH; -SUMA4INJ3 SC; +SUMA4INJ6 SC; +TESS100C PO; +TRUL0.5I SC
== END ==
LOC: M SFHCPLAZ 15:50
PROVIDERS: ATTEND Family Medicine
DX: E11.8 Type 2 diabetes mellitus with unspecified complications (principal); I10 Essential (primary) hypertension; K31.819 Angiodysplasia of stomach and duodenum without bleeding; R05 Cough; D50.9 Iron deficiency anemia, unspecified; Z87.39 Personal history of other diseases of the musculoskeletal system and connective tissue

== ENCOUNTER → 2020-11-26 | Outpatient (CLI) | payer MEDICARE ==
[~2020-11-26] MED LIST changes: +ALEN35TA54 PO; -ALEN35TA56 PO; -CEFD300C41 PO; -DOXY-350 PO; -LOSA25TA13 PO; +LOSA25TA14 PO; -PRED10TA2 PO; -PROAAER10 INH; +SUMA4INJ3 SC; -SUMA4INJ6 SC; -TESS100C PO; -TRUL0.5I SC
--- NOTE | 2020-11-26 17:21 | REP ---
INDICATION: RO5. COMPARISON: PA lateral chest, 07/14/2019. TECHNIQUE: Upright PA and lateral images of the chest were obtained. FINDINGS: The lungs are clear. The heart borders, mediastinum and pulmonary vascular pattern normal. The upper abdominal bowel gas pattern is normal. There is mild compression of the superior endplate of T12. IMPRESSION: 1. No evidence of acute cardiopulmonary pathology. 2. Mild compression of the superior endplate of T12 not present on the previous chest x-ray examination but seen on a CT of the abdomen examination of 01/30/2020. <Electronically signed by Edwin Walker > 11/26/20 [id number]
[2020-11-26 17:56] LABS: ALBUMIN 4.1 GM/DL (3.2-5.2); ALT/SGPT 37 U/L (12-78); BILIRUBIN,TOTAL 0.4 MG/DL (0.2-1.0); BLOOD UREA NITROGEN 10 MG/DL (7-18); CALCIUM LEVEL 8.9 MG/DL (8.8-10.2); CARBON DIOXIDE LEVEL 31 MEQ/L (21-32); CHLORIDE LEVEL 106 MEQ/L (98-107); CREATININE FOR GFR 0.66 MG/DL (0.55-1.30); GLOMERULAR FILTRATION RATE > 60.0 (>45); GLUCOSE, FASTING 143 MG/DL (70-100); MAGNESIUM LEVEL 1.6 MG/DL (1.8-2.4); POTASSIUM SERUM 3.8 MEQ/L (3.5-5.1); SODIUM LEVEL 140 MEQ/L (136-145); TOTAL PROTEIN 6.9 GM/DL (6.4-8.2)
[2020-11-26 18:42] LABS: HEMOGLOBIN A1c 8.2 %
== END ==
LOC: M LAB 16:14
PROVIDERS: ATTEND Student in an Organized Health Care Education/Training Program
DX: E11.8 Type 2 diabetes mellitus with unspecified complications (principal); I10 Essential (primary) hypertension; K31.819 Angiodysplasia of stomach and duodenum without bleeding; D50.9 Iron deficiency anemia, unspecified; R05 Cough; Z87.39 Personal history of other diseases of the musculoskeletal system and connective tissue

== ENCOUNTER → 2020-11-28 | Outpatient (REF) | payer MEDICARE | LOC: M SFHCPLAZ 09:58 | PROVIDERS: ATTEND Student in an Organized Health Care Education/Training Program | DX: Z87.39 Personal history of other diseases of the musculoskeletal system and connective tissue (principal); R05 Cough ==

== ENCOUNTER → 2020-11-29 | Outpatient (REF) | payer MEDICARE ==
[2020-11-29 11:04] LABS: BASO # 0.1 10^3/uL (0.0-0.2); BASO % 1.1 % (0.0-1.0); EOS # 0.2 10^3/uL (0.0-0.5); EOS % 3.4 % (0.0-3.0); HEMOGLOBIN 10.6 g/dl (12.0-15.5); LYMPH # 1.7 10^3/uL (1.5-5.0); LYMPH % 30.6 % (24.0-44.0); MEAN CORPUSCULAR HEMOGLOBIN 30.4 pg (27.0-33.0); MEAN CORPUSCULAR HGB CONC 32.1 g/dl (32.0-36.5); MEAN CORPUSCULAR VOLUME 94.6 fl (80.0-96.0); MONO # 0.6 10^3/uL (0.0-0.8); MONO % 10.6 % (2.0-8.0); NEUTROPHILS % 53.9 % (36.0-66.0); PLATELET COUNT, AUTOMATED 273 10^3/uL (150-450); RED BLOOD COUNT 3.49 10^6/uL (4.00-5.40); WHITE BLOOD COUNT 5.6 10^3/uL (4.0-10.0)
== END ==
LOC: M LAB 09:36
PROVIDERS: ATTEND Student in an Organized Health Care Education/Training Program
DX: K31.819 Angiodysplasia of stomach and duodenum without bleeding (principal); D50.9 Iron deficiency anemia, unspecified

== ENCOUNTER → 2021-02-19 | Outpatient (CLI) | payer MEDICARE ==
[~2021-02-19] MED LIST changes: -ALEN35TA54 PO; +ALEN35TA56 PO
--- NOTE | 2021-02-19 15:29 | REPMRS ---
Patient History The patient states she has not had a clinical breast exam in over a year. Family history of breast cancer at age 42 in maternal half sister, colorectal cancer at age 50 or over in paternal grandmother, colorectal cancer at age 50 or over in paternal grandfather, colorectal cancer at age 50 or over in father, breast cancer at age 50 or over in maternal half sister. Took estrogen for 1 month. Took unspecified hormones for 27 years. Patient states no breast complaints today. Patient has signed MRS History Sheet. Digital Woman Screen Mammo: February 19, 2021 - Exam #: [id number] Bilateral CC and MLO view(s) were taken. Technologist: Mari Wharton, Technologist Prior study comparison: January 24, 2020, bilateral digital woman screen mammo performed at [facility] [place]. January 11, 2019, bilateral digital woman screen mammo performed at [facility] [place]. FINDINGS: The breast tissue is almost entirely fat. Screening. Digital screening (2D) mammography was performed bilaterally in the CC and MLO projections. Additionally, breast tomosynthesis (3D mammography) was performed bilaterally in the CC and MLO projections. Todays exam was compared to the prior exam/exams. By history, the patient has no complaints of a palpable breast abnormality or other significant breast complaints. The Volpara volumetric breast density category is A, the breasts are almost entirely fatty. The breasts are unchanged in size and shape. There are no margarita-soft tissue densities or spiculated masses. There is no internal architectural distortion. There are no suspicious margarita-calcific clusters. Skin thickening or nipple retraction is not present. IMPRESSION: BI-RADS Category 2- Benign Findings. There is no evidence of malignant alteration of the breasts. Followup examination recommended in one year. The lifetime Tyrer-Cuzick score is 4.8% This mammogram was read with the assistance of Nova Ratio,an FDA approved computer aided detection system for mammography. Negative x-ray reports should not delay surgical consultation if a dominant or clinically suspicious mass is present. Not all breast cancers can be identified by mammography. Therefore, we recommend that you continue to perform regular breast self-examination and physical examination and then promptly contact your physician of any concerns or changes. Adenosis and dense breasts may obscure an underlying neoplasm. No significant changes when compared with prior studies. Assessment: BI-RADS/ACR category 2 mammogram. Benign Findings. Recommendation Routine screening mammogram of both breasts in 1 year. Electronically Signed By: Edwin Walker MD 02/19/21 [id number]
== END ==
LOC: M WHC 12:28
PROVIDERS: ATTEND Student in an Organized Health Care Education/Training Program
DX: Z12.31 Encounter for screening mammogram for malignant neoplasm of breast (principal); Z80.3 Family history of malignant neoplasm of breast

== ENCOUNTER → 2021-04-02 | Outpatient (CLI) | payer MEDICARE ==
--- NOTE | 2021-04-02 13:47 | REP ---
INDICATION: LOW BACK PAIN, UNSPECIFIED. COMPARISON: Chest 11/26/2020. TECHNIQUE: Three AP and lateral views thoracic spine. FINDINGS: There is mild compression deformity of T12 which is unchanged. No acute compression fracture is seen. There is normal alignment and thoracic kyphosis. There is mild disc space narrowing and subchondral sclerosis at several consecutive midthoracic disc levels. The posterior elements are intact. IMPRESSION: Stable mild compression deformity T12 with no acute finding. Mild diffuse degenerative changes. <Electronically signed by Nj Shepherd > 04/02/21 [id number]
--- NOTE | 2021-04-02 13:50 | REP ---
INDICATION: LBP. COMPARISON: 07/31/2014. TECHNIQUE: Five views lumbosacral spine. FINDINGS: There is no compression fracture. There is normal lumbar lordosis. There is mild spurring of L4 and L5. There is mild disc space narrowing and subchondral sclerosis at L4-5 and L5-S1. There is sclerosis and spurring at the posterior facets of L5-S1. The posterior elements are intact. IMPRESSION: Degenerative changes L4-5 and L5-S1. No fracture or dislocation. <Electronically signed by Nj Shepherd > 04/02/21 [id number]
== END ==
LOC: M RAD 11:07
PROVIDERS: ATTEND Student in an Organized Health Care Education/Training Program
DX: M51.36 Other intervertebral disc degeneration, lumbar region (principal); M51.37 Other intervertebral disc degeneration, lumbosacral region; M53.84 Other specified dorsopathies, thoracic region; M51.34 Other intervertebral disc degeneration, thoracic region; M54.50 Low back pain, unspecified

== ENCOUNTER → 2021-04-18 | Outpatient (CLI) | payer MEDICARE ==
[~2021-04-18] MED LIST changes: +PROAAER10 INH; +TESS100C PO
[2021-04-18 09:54] LABS: BASO % 0.6 % (0.0-1.0); EOS # 0.1 10^3/uL (0.0-0.5); EOS % 1.1 % (0.0-3.0); HEMATOCRIT 36.3 % (36.0-47.0); HEMOGLOBIN 11.8 g/dl (12.0-15.5); LYMPH # 0.6 10^3/uL (1.5-5.0); LYMPH % 11.6 % (24.0-44.0); MEAN CORPUSCULAR HEMOGLOBIN 30.3 pg (27.0-33.0); MEAN CORPUSCULAR HGB CONC 32.5 g/dl (32.0-36.5); MEAN CORPUSCULAR VOLUME 93.1 fl (80.0-96.0); MONO # 0.5 10^3/uL (0.0-0.8); MONO % 9.9 % (2.0-8.0); NEUTROPHILS % 76.6 % (36.0-66.0); PLATELET COUNT, AUTOMATED 179 10^3/uL (150-450); WHITE BLOOD COUNT 5.3 10^3/uL (4.0-10.0)
[2021-04-18 10:15] LABS: HEMOGLOBIN A1c 7.8 %
[2021-04-18 10:34] LABS: BLOOD UREA NITROGEN 12 MG/DL (7-18); CALCIUM LEVEL 8.4 MG/DL (8.8-10.2); CARBON DIOXIDE LEVEL 28 MEQ/L (21-32); CHLORIDE LEVEL 101 MEQ/L (98-107); CREATININE FOR GFR 0.72 MG/DL (0.55-1.30); GLOMERULAR FILTRATION RATE > 60.0 (>45); GLUCOSE, FASTING 233 MG/DL (70-100); MAGNESIUM LEVEL 1.4 MG/DL (1.8-2.4); POTASSIUM SERUM 3.8 MEQ/L (3.5-5.1); SODIUM LEVEL 134 MEQ/L (136-145)
== END ==
LOC: M LAB 09:07
PROVIDERS: ATTEND Student in an Organized Health Care Education/Training Program
DX: E11.8 Type 2 diabetes mellitus with unspecified complications (principal); D64.9 Anemia, unspecified; I10 Essential (primary) hypertension

== ENCOUNTER 2021-04-21 09:43 | Emergency (ER) | payer MEDICARE ==
[~2021-04-21] VITALS: Ht 170.2 cm; Wt 70.7 kg
[~2021-04-21 09:43] MED LIST changes: +LOSA25TA13 PO; -LOSA25TA14 PO; -PROAAER10 INH; -SUMA4INJ3 SC; +SUMA4INJ6 SC; -TESS100C PO
[2021-04-21 09:55] VITALS: BP 145/80
[2021-04-21] MEDS ORDERED: NS 1,000 ML IV ONE (11:15)
[2021-04-21] MEDS: ALBUTEROL 90 MCG/ACT 8GM HFA INHALER INH SCH ×2 (11:15→11:35)
[2021-04-21] MEDS ORDERED: dexameTHASONE 4 MG/ML 1ML VIAL (J1100 PER 1MG) IV ONE (11:15)
[2021-04-21 11:40] LABS: BASO % 0.3 % (0.0-1.0); EOS # 0.1 10^3/uL (0.0-0.5); EOS % 0.8 % (0.0-3.0); HEMOGLOBIN 11.1 g/dl (12.0-15.5); LYMPH # 0.6 10^3/uL (1.5-5.0); LYMPH % 9.7 % (24.0-44.0); MEAN CORPUSCULAR HEMOGLOBIN 30.1 pg (27.0-33.0); MEAN CORPUSCULAR HGB CONC 32.6 g/dl (32.0-36.5); MEAN CORPUSCULAR VOLUME 92.1 fl (80.0-96.0); MONO # 0.5 10^3/uL (0.0-0.8); MONO % 7.9 % (2.0-8.0); NEUTROPHILS # 5.4 10^3/uL (1.5-8.5); NEUTROPHILS % 80.8 % (36.0-66.0); PLATELET COUNT, AUTOMATED 187 10^3/uL (150-450); RED BLOOD COUNT 3.69 10^6/uL (4.00-5.40); WHITE BLOOD COUNT 6.6 10^3/uL (4.0-10.0)
[2021-04-21 12:03] LABS: INR 0.93; PROTHROMBIN TIME 12.9 SECONDS (12.7-14.5)
[2021-04-21 12:04] LABS: PARTIAL THROMBOPLASTIN TIME 34.6 SECONDS (25.9-37.0)
[2021-04-21 12:06] LABS: D-DIMER QUANT 514.02 ng/ml (<500)
[2021-04-21 12:13] LABS: ALBUMIN 3.5 GM/DL (3.2-5.2); ALT/SGPT 51 U/L (12-78); BILIRUBIN,DIRECT 0.2 MG/DL (0.0-0.2); BILIRUBIN,TOTAL 0.4 MG/DL (0.2-1.0); BLOOD UREA NITROGEN 7 MG/DL (7-18); CALCIUM LEVEL 8.5 MG/DL (8.8-10.2); CARBON DIOXIDE LEVEL 26 MEQ/L (21-32); CHLORIDE LEVEL 99 MEQ/L (98-107); GLOMERULAR FILTRATION RATE > 60.0 (>45); GLUCOSE, FASTING 241 MG/DL (70-100); LIPASE 66 U/L (73-393); POTASSIUM SERUM 4.1 MEQ/L (3.5-5.1); SODIUM LEVEL 133 MEQ/L (136-145); TOTAL PROTEIN 6.6 GM/DL (6.4-8.2)
[2021-04-21 12:59] LABS: RSV AMPLIFICATION NEGATIVE (NEGATIVE)
[2021-04-21] MEDS ORDERED: KETOROLAC 30 MG/ML 1ML VIAL IV ONE (13:10)
[2021-04-21] MEDS ORDERED: TESS100C PO (14:16)
[2021-04-21] MEDS ORDERED: PROAAER10 INH (14:36)
[2021-04-29] MEDS ORDERED: TRUL0.5I SC (12:51)
[2021-04-29] MEDS ORDERED: OMEP1CAP73 PO (12:53)
[2021-05-02] MEDS ORDERED: PRED10TA2 PO (10:42)
[2021-05-02] MEDS ORDERED: CEFD300C41 PO (10:42)
[2021-05-02] MEDS ORDERED: DOXY-350 PO (10:42)
== END 2021-04-21 14:45 | disposition home or self-care (01) ==
LOC: M ED 09:43
DX: R52 Pain, unspecified (principal); U07.1 COVID-19; E11.9 Type 2 diabetes mellitus without complications; I10 Essential (primary) hypertension; E78.5 Hyperlipidemia, unspecified; G47.33 Obstructive sleep apnea (adult) (pediatric); G90.50 Complex regional pain syndrome I, unspecified; Z87.442 Personal history of urinary calculi; Z79.899 Other long term (current) drug therapy; Z79.84 Long term (current) use of oral hypoglycemic drugs
CPT/HCPCS: 71045; 80048; 80076; 83690; 85025; 85379; 85610; 85730; 87631; 93005; 94640; 96361; 96374; 99284; J1100

== ENCOUNTER → 2021-05-09 | Outpatient (CLI) | payer MEDICARE ==
[~2021-05-09] MED LIST changes: +CEFD300C41 PO; +DOXY-350 PO; +PRED10TA2 PO; +PROAAER10 INH; +TESS100C PO; +TRUL0.5I SC
== END ==
LOC: M CARPUL 08:20
PROVIDERS: ATTEND Student in an Organized Health Care Education/Training Program
DX: R94.31 Abnormal electrocardiogram [ECG] [EKG] (principal)

== ENCOUNTER → 2021-05-13 | Outpatient (CLI) | payer MEDICARE ==
[~2021-05-13] MED LIST changes: +PROHANCE 279.3MG/ML 15ML VIAL As Ordered ONE
== END ==
LOC: M RAD 15:33
PROVIDERS: ATTEND Student in an Organized Health Care Education/Training Program
DX: K86.2 Cyst of pancreas (principal)
CPT/HCPCS: 74183; A9576

== ENCOUNTER → 2021-05-30 | Outpatient (REF) | payer MEDICARE ==
[~2021-05-30] MED LIST changes: -PROHANCE 279.3MG/ML 15ML VIAL As Ordered ONE
== END ==
LOC: M SFHCPLAZ 14:00
PROVIDERS: ATTEND Family Medicine
DX: R53.83 Other fatigue (principal); E11.69 Type 2 diabetes mellitus with other specified complication

== ENCOUNTER → 2021-05-30 | Outpatient (REF) | payer MEDICARE ==
[2021-05-30 17:38] LABS: CREATININE, URINE 95.9 MG/DL; MALB URINE SIEMENS 56.8 MG/L; MAU/CREAT RATIO 59.2 MCG/MG (0.0-30.0)
== END ==
LOC: M SFHCPLAZ 16:43
PROVIDERS: ATTEND Student in an Organized Health Care Education/Training Program
DX: E11.69 Type 2 diabetes mellitus with other specified complication (principal)

== ENCOUNTER → 2021-06-17 | Outpatient (CLI) | payer MEDICARE ==
[2021-06-17 15:22] LABS: BASO # 0.1 10^3/uL (0.0-0.2); BASO % 0.8 % (0.0-1.0); EOS # 0.1 10^3/uL (0.0-0.5); EOS % 1.8 % (0.0-3.0); HEMATOCRIT 35.6 % (36.0-47.0); LYMPH # 1.8 10^3/uL (1.5-5.0); LYMPH % 28.9 % (24.0-44.0); MEAN CORPUSCULAR HEMOGLOBIN 30.2 pg (27.0-33.0); MEAN CORPUSCULAR HGB CONC 30.9 g/dl (32.0-36.5); MEAN CORPUSCULAR VOLUME 97.8 fl (80.0-96.0); MONO # 0.7 10^3/uL (0.0-0.8); MONO % 11.5 % (2.0-8.0); NEUTROPHILS # 3.5 10^3/uL (1.5-8.5); NEUTROPHILS % 56.8 % (36.0-66.0); PLATELET COUNT, AUTOMATED 369 10^3/uL (150-450); RED BLOOD COUNT 3.64 10^6/uL (4.00-5.40); WHITE BLOOD COUNT 6.1 10^3/uL (4.0-10.0)
[2021-06-17 15:59] LABS: MALB URINE SIEMENS 24.6 MG/L; MAU/CREAT RATIO 19.8 MCG/MG (0.0-30.0)
[2021-06-17 16:03] LABS: ALBUMIN 3.8 GM/DL (3.2-5.2); ALT/SGPT 38 U/L (12-78); BILIRUBIN,TOTAL 0.4 MG/DL (0.2-1.0); BLOOD UREA NITROGEN 9 MG/DL (7-18); CARBON DIOXIDE LEVEL 26 MEQ/L (21-32); CHLORIDE LEVEL 105 MEQ/L (98-107); CREATININE FOR GFR 0.68 MG/DL (0.55-1.30); GLOMERULAR FILTRATION RATE > 60.0 (>45); GLUCOSE, FASTING 234 MG/DL (70-100); SODIUM LEVEL 138 MEQ/L (136-145); TOTAL PROTEIN 6.5 GM/DL (6.4-8.2)
== END ==
LOC: M PLALAB 12:27
PROVIDERS: ATTEND Student in an Organized Health Care Education/Training Program
DX: R53.83 Other fatigue (principal)

== ENCOUNTER → 2021-10-16 | Outpatient (REF) | payer MEDICARE | LOC: M SFHCPLAZ 09:09 | PROVIDERS: ATTEND Family Medicine | DX: E11.69 Type 2 diabetes mellitus with other specified complication (principal); I10 Essential (primary) hypertension ==

== ENCOUNTER → 2021-11-04 | Outpatient (CLI) | payer MEDICARE ==
[2021-11-04 17:19] LABS: BASO # 0.1 10^3/uL (0.0-0.2); BASO % 0.6 % (0.0-1.0); EOS # 0.1 10^3/uL (0.0-0.5); EOS % 1.2 % (0.0-3.0); HEMATOCRIT 36.2 % (36.0-47.0); HEMOGLOBIN 11.5 g/dl (12.0-15.5); LYMPH # 2.4 10^3/uL (1.5-5.0); LYMPH % 25.7 % (24.0-44.0); MEAN CORPUSCULAR HEMOGLOBIN 29.5 pg (27.0-33.0); MEAN CORPUSCULAR HGB CONC 31.8 g/dl (32.0-36.5); MEAN CORPUSCULAR VOLUME 92.8 fl (80.0-96.0); MONO # 0.9 10^3/uL (0.0-0.8); MONO % 9.8 % (2.0-8.0); NEUTROPHILS # 5.8 10^3/uL (1.5-8.5); NEUTROPHILS % 62.2 % (36.0-66.0); PLATELET COUNT, AUTOMATED 337 10^3/uL (150-450); WHITE BLOOD COUNT 9.4 10^3/uL (4.0-10.0)
[2021-11-04 19:03] LABS: ERYTHROCYTE SEDIMENTATION RATE 12 mm/hr (0-30)
[2021-11-04 22:15] LABS: ALBUMIN 4.4 GM/DL (3.2-5.2); ALT/SGPT 40 U/L (12-78); BILIRUBIN,TOTAL 0.4 MG/DL (0.2-1.0); BLOOD UREA NITROGEN 10 MG/DL (7-18); CALCIUM LEVEL 9.4 MG/DL (8.8-10.2); CARBON DIOXIDE LEVEL 30 MEQ/L (21-32); CHLORIDE LEVEL 105 MEQ/L (98-107); CREATININE FOR GFR 0.77 MG/DL (0.55-1.30); GLOMERULAR FILTRATION RATE > 60.0 (>39); GLUCOSE, FASTING 156 MG/DL (70-100); LIPASE 83 U/L (73-393); POTASSIUM SERUM 3.9 MEQ/L (3.5-5.1); SODIUM LEVEL 137 MEQ/L (136-145); TOTAL PROTEIN 7.5 GM/DL (6.4-8.2)
== END ==
LOC: M LAB 16:19
PROVIDERS: ATTEND Physician Assistant
DX: R35.0 Frequency of micturition (principal); M54.6 Pain in thoracic spine; R10.11 Right upper quadrant pain; R31.9 Hematuria, unspecified; Z87.442 Personal history of urinary calculi

== ENCOUNTER → 2021-11-05 | Outpatient (CLI) | payer MEDICARE ==
[~2021-11-05] MED LIST changes: +ISOVUE-370 76% 100ML VIAL As Ordered ONE
== END ==
LOC: M RAD 07:57
PROVIDERS: ATTEND Physician Assistant
DX: N20.2 Calculus of kidney with calculus of ureter (principal); R35.0 Frequency of micturition; M54.6 Pain in thoracic spine; R10.11 Right upper quadrant pain; R31.9 Hematuria, unspecified; Z87.442 Personal history of urinary calculi
CPT/HCPCS: 74178; Q9967

== ENCOUNTER 2021-11-20 11:45 | Outpatient (RCR) | payer MEDICARE ==
[~2021-11-20 11:45] MED LIST changes: -ISOVUE-370 76% 100ML VIAL As Ordered ONE
== END 2021-11-24 ==
LOC: M PT 11:45
PROVIDERS: ATTEND Student in an Organized Health Care Education/Training Program
DX: M54.9 Dorsalgia, unspecified (principal)

== ENCOUNTER → 2021-11-25 | Outpatient (CLI) | payer MEDICARE ==
[2021-11-25 16:17] LABS: CHOLESTEROL RISK RATIO 2.692 (<5)
== END ==
LOC: M LAB 15:15
PROVIDERS: ATTEND Student in an Organized Health Care Education/Training Program
DX: E78.2 Mixed hyperlipidemia (principal)

== ENCOUNTER → 2021-11-25 | Outpatient (REF) | payer MEDICARE | LOC: M SFHCPLAZ 14:47 | PROVIDERS: ATTEND Family Medicine | DX: E78.2 Mixed hyperlipidemia (principal) ==

== ENCOUNTER → 2021-11-26 | Outpatient (CLI) | payer MEDICARE ==
[~2021-11-26] MED LIST changes: +LEVO1TAB40 PO; -LEVO750T13 PO
== END ==
LOC: M RAD 14:33
PROVIDERS: ATTEND Student in an Organized Health Care Education/Training Program
DX: G11.9 Hereditary ataxia, unspecified (principal); I67.82 Cerebral ischemia

== ENCOUNTER → 2021-11-27 | Outpatient (CLI) | payer MEDICARE | LOC: M RAD 12:24 | PROVIDERS: ATTEND Student in an Organized Health Care Education/Training Program | DX: G11.9 Hereditary ataxia, unspecified (principal); I25.10 Atherosclerotic heart disease of native coronary artery without angina pectoris ==

== ENCOUNTER → 2021-12-09 | Outpatient (CLI) | payer MEDICARE ==
[2021-12-09 12:55] LABS: BLOOD UREA NITROGEN 12 MG/DL (7-18); CREATININE FOR GFR 0.69 MG/DL (0.55-1.30); GLOMERULAR FILTRATION RATE > 60.0 (>39); TOTAL PROTEIN 6.6 GM/DL (6.4-8.2)
[2021-12-09 13:35] LABS: FOLATE 16.4 NG/ML; VITAMIN B12 LEVEL 279 PG/ML
[2021-12-09 15:36] LABS: HEMOGLOBIN A1c 7.4 %
[2021-12-10 15:50] LABS: ALBUMIN 4.34 GM/DL (3.29-5.55); ALBUMIN % 65.7 % (55.8-66.1); ALPHA-1-GLOBULIN % 3.6 % (2.9-4.9); ALPHA-1-GLOBULINS 0.24 GM/DL (0.17-0.41); ALPHA-2-GLOBULINS 0.77 GM/DL (0.42-0.99); ALPHA-2-GLOBULINS % 11.7 % (7.1-11.8); BETA-1-GLOBULINS 0.44 GM/DL (0.28-0.60); BETA-1-GLOBULINS % 6.6 % (4.7-7.2); BETA-2-GLOBULINS % 4.5 % (3.2-6.5); GAMMA GLOBULIN % 7.9 % (11.1-18.8); GAMMA GLOBULINS 0.52 GM/DL (0.65-1.58)
== END ==
LOC: M LAB 10:57
PROVIDERS: ATTEND Psychiatry & Neurology Neurology
DX: G62.9 Polyneuropathy, unspecified (principal); E11.9 Type 2 diabetes mellitus without complications; E53.8 Deficiency of other specified B group vitamins

== ENCOUNTER 2021-12-17 07:38 | Outpatient (RCR) | payer MEDICARE | END 2021-12-25 | LOC: M PT 07:38 | PROVIDERS: ATTEND Student in an Organized Health Care Education/Training Program | DX: M54.9 Dorsalgia, unspecified (principal) ==

== ENCOUNTER 2022-01-13 08:20 | Outpatient (RCR) | payer MEDICARE ==
[2022-01-16] MEDS ORDERED: GABA600T4 PO (10:42)
[2022-01-16] MEDS ORDERED: LANTINJ4 SC (10:47)
[2022-01-20] MEDS ORDERED: OXYC1TAB23 PO (12:34)
[2022-01-20] MEDS ORDERED: IBUP-1022 PO (12:36)
== END 2022-01-24 ==
LOC: M PT 08:20
PROVIDERS: ATTEND Student in an Organized Health Care Education/Training Program
DX: M54.9 Dorsalgia, unspecified (principal)

== ENCOUNTER → 2022-01-15 | Outpatient (CLI) | payer MEDICARE ==
[~2022-01-15] MED LIST changes: +GABA600T4 PO; +LANTINJ4 SC
== END ==
LOC: M LABSMTC 09:41
PROVIDERS: ATTEND Anesthesiology
DX: Z01.812 Encounter for preprocedural laboratory examination (principal); Z20.822 Contact with and (suspected) exposure to COVID-19

== ENCOUNTER 2022-01-20 08:49 | Day surgery (SDC) | payer MEDICARE ==
[~2022-01-20] VITALS: Ht 170.2 cm; Wt 68.0 kg
[~2022-01-20 08:49] MED LIST changes: +LIDOCAINE 2% 100MG/5ML SDV (FOR ANES.) As Ordered ONE; +LR 1,000 ML IV SCH; +MIDAZOLAM INJ 2MG/2ML VIAL (J2250 PER 1MG) As Ordered ONE; +ROCURONIUM BROMIDE 50 MG/5 ML VIAL As Ordered ONE; +ceFAZolin SOD 2 GM in IV 1 EA IV ONE; +fentaNYL 250 MCG/5 ML INJECTION As Ordered ONE; +propofoL 200 MG/20 ML VIAL As Ordered ONE
[2022-01-20 09:48] LABS: HEMOGLOBIN 11.5 g/dl (12.0-15.5); MEAN CORPUSCULAR HEMOGLOBIN 30.4 pg (27.0-33.0); MEAN CORPUSCULAR HGB CONC 31.9 g/dl (32.0-36.5); MEAN CORPUSCULAR VOLUME 95.2 fl (80.0-96.0); PLATELET COUNT, AUTOMATED 287 10^3/uL (150-450); RED BLOOD COUNT 3.78 10^6/uL (4.00-5.40); WHITE BLOOD COUNT 5.5 10^3/uL (4.0-10.0)
[2022-01-20] MEDS ORDERED: BUPIVACAINE HCL 0.25% 30ML VIAL As Ordered ONE (10:20)
[2022-01-20] MEDS ORDERED: VASOPRESSIN INJ 20 UNITS/ML VIAL As Ordered ONE (10:20)
[2022-01-20] MEDS ORDERED: ONDANSETRON 4MG 2ML VIAL As Ordered ONE (11:10)
[2022-01-20] MEDS ORDERED: ACETAMINOPHEN 1000MG 100ML IV BTL (OFIRMEV) (J0131 PER 10MG) As Ordered ONE (11:10)
[2022-01-20] MEDS ORDERED: KETOROLAC 60MG 2ML VIAL As Ordered ONE (11:10)
[2022-01-20] MEDS ORDERED: SUGAMMADEX SODIUM 500 MG/5 ML VIAL (BRIDION) As Ordered ONE (11:33)
[2022-01-20] MEDS ORDERED: LR 1,000 ML IV SCH ×2 (12:00→12:30)
[2022-01-20] MEDS ORDERED: fentaNYL 100 MCG/2 ML INJECTION IV PRN (12:00)
[2022-01-20] MEDS ORDERED: oxyCODONE 5MG TAB PO PRN (12:00)
[2022-01-20] MEDS ORDERED: ONDANSETRON 4MG 2ML VIAL IV PRN (12:00)
[2022-01-20] MEDS ORDERED: PERCOCET 5MG/325MG TAB PO PRN (12:30)
[2022-01-20] MEDS ORDERED: OXYC1TAB23 PO (12:34)
[2022-01-20] MEDS ORDERED: IBUP-1022 PO (12:36)
[2022-01-20 14:20] VITALS: BP 126/71
== END 2022-01-20 14:30 | disposition home or self-care (01) ==
LOC: M SDC 08:49
PROVIDERS: ATTEND Specialist
DX: N81.11 Cystocele, midline (principal); Z91.81 History of falling; R26.81 Unsteadiness on feet; G62.9 Polyneuropathy, unspecified; I67.82 Cerebral ischemia; E11.9 Type 2 diabetes mellitus without complications; E78.5 Hyperlipidemia, unspecified; F32.A Depression, unspecified; G47.33 Obstructive sleep apnea (adult) (pediatric); K21.9 Gastro-esophageal reflux disease without esophagitis; G43.709 Chronic migraine without aura, not intractable, without status migrainosus; R06.02 Shortness of breath; Z88.8 Allergy status to other drugs, medicaments and biological substances; Z79.899 Other long term (current) drug therapy; Z79.84 Long term (current) use of oral hypoglycemic drugs; Z79.4 Long term (current) use of insulin
CPT/HCPCS: 36415; 57240; 85027; 86850; 86900; 86901; 88302; J0131; J0690; J1885; J2250; J2405; J3010

== ENCOUNTER → 2022-01-29 | Outpatient (CLI) | payer MEDICARE ==
[~2022-01-29] MED LIST changes: +IBUP-1022 PO; -LIDOCAINE 2% 100MG/5ML SDV (FOR ANES.) As Ordered ONE; -LR 1,000 ML IV SCH; -MIDAZOLAM INJ 2MG/2ML VIAL (J2250 PER 1MG) As Ordered ONE; +OXYC1TAB23 PO; -ROCURONIUM BROMIDE 50 MG/5 ML VIAL As Ordered ONE; -ceFAZolin SOD 2 GM in IV 1 EA IV ONE; -fentaNYL 250 MCG/5 ML INJECTION As Ordered ONE; -propofoL 200 MG/20 ML VIAL As Ordered ONE
== END ==
LOC: M CARPUL 07:23
PROVIDERS: ATTEND Student in an Organized Health Care Education/Training Program
DX: R06.02 Shortness of breath (principal)

== ENCOUNTER → 2022-02-06 | Outpatient (REF) | payer MEDICARE | LOC: M SFHCWAGY 10:24 | PROVIDERS: ATTEND Specialist | DX: N39.0 Urinary tract infection, site not specified (principal) ==

== ENCOUNTER → 2022-02-27 | Outpatient (CLI) | payer MEDICARE ==
[~2022-02-27] MED LIST changes: -DOXY-350 PO; +DOXY-444 PO
== END ==
LOC: M WHC 07:01
PROVIDERS: ATTEND Family Medicine
DX: Z12.31 Encounter for screening mammogram for malignant neoplasm of breast (principal)

== ENCOUNTER → 2022-03-06 | Outpatient (REF) | payer MEDICARE | LOC: M SFHCWAGY 17:05 | PROVIDERS: ATTEND Specialist | DX: N39.0 Urinary tract infection, site not specified (principal) ==

== ENCOUNTER → 2022-04-01 | Outpatient (REF) | payer MEDICARE ==
[2022-04-01 18:24] LABS: APPEARANCE, URINE MANUAL HAZY (CLEAR); COLOR, URINE MANUAL YELLOW (YELLOW)
[2022-04-01 18:25] LABS: BILIRUBIN, URINE MANUAL NEGATIVE (NEGATIVE); BLOOD URINE MANUAL POSITIVE (NEGATIVE); GLUCOSE, URINE (UA) MANUAL 1+(100 MG/DL) mg/dL (NEGATIVE); KETONE, URINE MANUAL NEGATIVE (NEGATIVE); LEUKOCYTE ESTERASE, URINE MAN POSITIVE (NEGATIVE); NITRITE, URINE MANUAL POSITIVE (NEGATIVE); PROTEIN, URINE MANUAL NEGATIVE (NEGATIVE); UROBILINOGEN, URINE MANUAL NORMAL (NORMAL)
[2022-04-01 18:55] LABS: BACTERIA, URINE MOD AMOUNT; HYALINE CAST, URINE NONE SEEN /lpf (0-1); RBC, URINE NONE SEEN /hpf (0-3); SQUAMOUS EPITHELIAL CELL URINE SMALL AMOUNT /hpf (SMALL AMT); WBC, URINE 20-30 /hpf (0-3)
== END ==
LOC: M SFHCPLAZ 17:00
PROVIDERS: ATTEND Student in an Organized Health Care Education/Training Program
DX: N39.0 Urinary tract infection, site not specified (principal)

== ENCOUNTER → 2022-04-08 | Outpatient (REF) | payer MEDICARE | LOC: M SFHCWAGY 16:38 | PROVIDERS: ATTEND Specialist | DX: N39.0 Urinary tract infection, site not specified (principal) ==

== ENCOUNTER → 2022-04-22 | Outpatient (CLI) | payer MEDICARE | LOC: M PLALAB 11:26 | PROVIDERS: ATTEND Specialist | DX: N39.0 Urinary tract infection, site not specified (principal) ==

== ENCOUNTER 2022-04-24 15:12 | Emergency (ER) | payer MEDICARE ==
[~2022-04-24] VITALS: Ht 170.2 cm; Wt 71.6 kg
[2022-04-24] MEDS ORDERED: ONDANSETRON 4MG 2ML VIAL IV ONE (19:30)
[2022-04-24 19:54] LABS: BASO # 0.1 10^3/uL (0.0-0.2); BASO % 0.8 % (0.0-1.0); EOS # 0.1 10^3/uL (0.0-0.5); EOS % 1.9 % (0.0-3.0); HEMATOCRIT 34.8 % (36.0-47.0); LYMPH # 2.5 10^3/uL (1.5-5.0); LYMPH % 33.7 % (24.0-44.0); MEAN CORPUSCULAR HEMOGLOBIN 29.6 pg (27.0-33.0); MEAN CORPUSCULAR HGB CONC 31.6 g/dl (32.0-36.5); MEAN CORPUSCULAR VOLUME 93.5 fl (80.0-96.0); MONO # 0.7 10^3/uL (0.0-0.8); NEUTROPHILS # 3.9 10^3/uL (1.5-8.5); NEUTROPHILS % 53.3 % (36.0-66.0); PLATELET COUNT, AUTOMATED 294 10^3/uL (150-450); RED BLOOD COUNT 3.72 10^6/uL (4.00-5.40); WHITE BLOOD COUNT 7.3 10^3/uL (4.0-10.0)
[2022-04-24 20:25] LABS: ALBUMIN 3.9 G/DL (3.2-5.2); BILIRUBIN,DIRECT 0.1 MG/DL (<0.4); BILIRUBIN,TOTAL 0.3 MG/DL (0.3-1.2); TOTAL PROTEIN 6.5 G/DL (5.7-8.2)
[2022-04-24] MEDS ORDERED: TAMSULOSIN 0.4 MG CAP PO ONE (21:05)
[2022-04-24] MEDS ORDERED: PERCOCET 5MG/325MG TAB PO ONE (21:05)
[2022-04-24] MEDS ORDERED: FLOM0.4C39 PO (21:08)
[2022-04-24] MEDS ORDERED: PERC5TAB12 PO (21:08)
[2022-04-24 21:35] VITALS: BP 140/81
== END 2022-04-24 21:47 | disposition home or self-care (01) ==
LOC: M ED 15:12
DX: N13.2 Hydronephrosis with renal and ureteral calculous obstruction (principal); E11.65 Type 2 diabetes mellitus with hyperglycemia; K21.9 Gastro-esophageal reflux disease without esophagitis; G43.909 Migraine, unspecified, not intractable, without status migrainosus; D50.9 Iron deficiency anemia, unspecified; E78.5 Hyperlipidemia, unspecified; Z87.442 Personal history of urinary calculi; Z79.4 Long term (current) use of insulin; Z79.899 Other long term (current) drug therapy
CPT/HCPCS: 74176; 80047; 80076; 81000; 81015; 85025; 87086; 96374; 99284; J2405

== ENCOUNTER 2022-05-01 13:50 | Inpatient (IN) | payer MEDICARE ==
[~2022-05-01] VITALS: Ht 170.2 cm; Wt 74.0 kg
[2022-05-01 15:59] LABS: BASO # 0.1 10^3/uL (0.0-0.2); BASO % 0.9 % (0.0-1.0); EOS # 0.1 10^3/uL (0.0-0.5); EOS % 1.9 % (0.0-3.0); HEMATOCRIT 33.5 % (36.0-47.0); HEMOGLOBIN 10.4 g/dl (12.0-15.5); LYMPH # 1.7 10^3/uL (1.5-5.0); LYMPH % 23.4 % (24.0-44.0); MEAN CORPUSCULAR HEMOGLOBIN 29.4 pg (27.0-33.0); MEAN CORPUSCULAR VOLUME 94.6 fl (80.0-96.0); MONO # 0.7 10^3/uL (0.0-0.8); MONO % 9.8 % (2.0-8.0); NEUTROPHILS # 4.8 10^3/uL (1.5-8.5); NEUTROPHILS % 63.7 % (36.0-66.0); PLATELET COUNT, AUTOMATED 284 10^3/uL (150-450); RED BLOOD COUNT 3.54 10^6/uL (4.00-5.40); WHITE BLOOD COUNT 7.5 10^3/uL (4.0-10.0)
[2022-05-01 16:23] LABS: BLOOD UREA NITROGEN 13 MG/DL (9-23); CARBON DIOXIDE LEVEL 28 MMOL/L (20-31); CHLORIDE LEVEL 104 MMOL/L (98-107); CREATININE FOR GFR 0.61 MG/DL (0.55-1.30); GLOMERULAR FILTRATION RATE > 60.0 (>39); GLUCOSE, FASTING 127 MG/DL (74-106); POTASSIUM SERUM 4.4 MMOL/L (3.5-5.1); SODIUM LEVEL 139 MMOL/L (136-145)
[2022-05-01] MEDS ORDERED: ISOVUE-370 76% 100ML VIAL As Ordered ONE (17:21)
[2022-05-01] MEDS ORDERED: ACETAMINOPHEN TAB 650MG DOSE (2X325MG) PO PRN (18:55)
[2022-05-01] MEDS ORDERED: MORPHINE 2 MG/ML 1ML VIAL IV PRN (18:55)
[2022-05-01] MEDS ORDERED: DEXTROSE 50% 50ML SYRINGE IV PRN (19:10)
[2022-05-01] MEDS ORDERED: GLUCAGON INJ 1MG VIAL SC PRN (19:10)
[2022-05-01] MEDS ORDERED: GLUCOSE 4GM CHEW TABLET PO PRN (19:10)
[2022-05-01 19:14] LABS: RSV AMPLIFICATION NEGATIVE (NEGATIVE)
[2022-05-01] MEDS ORDERED: GABA-283 PO (20:00)
[2022-05-01] MEDS ORDERED: KETO10TAB PO (20:00)
[2022-05-01] MEDS ORDERED: ALEN70TA82 PO (20:00)
[2022-05-01] MEDS ORDERED: METF-838 PO (20:00)
[2022-05-01] MEDS ORDERED: TAMS1CAP17 PO (20:00)
[2022-05-01] MEDS ORDERED: ATOR1TAB21 PO (20:00)
[2022-05-01] MEDS ORDERED: ASPI81TA26 PO (20:02)
[2022-05-01] MEDS ORDERED: [UNRECOGNIZED DRUG - CODE] SL (20:02)
[2022-05-01] MEDS ORDERED: HOME MED LIST COMPLETE! XX SCH (20:05)
[2022-05-01] MEDS ORDERED: ATORVASTATIN 20 MG TAB PO SCH (21:00)
[2022-05-01] MEDS ORDERED: ENOXAPARIN 40MG/0.4ML SYRINGE (J1650 PER 10MG) SC SCH (21:00)
[2022-05-01] MEDS ORDERED: INSULIN LISPRO (NovoLOG) PER UNIT SC SCH (21:00)
[2022-05-01] MEDS ORDERED: CYCLOBENZAPRINE 10MG TABLET PO SCH (21:00)
[2022-05-01] MEDS ORDERED: RAMELTEON 8 MG TAB (ROZEREM) PO PRN (21:10)
[2022-05-01 22:11] VITALS: BP 163/76
[2022-05-01] MEDS: KETOROLAC 30 MG/ML 1ML VIAL IV PRN (22:36)
[2022-05-01] MEDS: GABAPENTIN 400MG CAP PO SCH (22:37)
[2022-05-01] MEDS: DULoxetine 30MG CAPSULE (CYMBALTA) PO SCH (22:37)
[2022-05-01] MEDS: DOCUSATE SODIUM 100MG CAPSULE PO SCH (22:37)
[2022-05-02 05:47] VITALS: BP 156/83
[2022-05-02 05:47] LABS: HEMATOCRIT 31.4 % (36.0-47.0); HEMOGLOBIN 9.8 g/dl (12.0-15.5); MEAN CORPUSCULAR HEMOGLOBIN 29.3 pg (27.0-33.0); MEAN CORPUSCULAR HGB CONC 31.2 g/dl (32.0-36.5); PLATELET COUNT, AUTOMATED 241 10^3/uL (150-450); RED BLOOD COUNT 3.34 10^6/uL (4.00-5.40); WHITE BLOOD COUNT 6.7 10^3/uL (4.0-10.0)
[2022-05-02 06:03] LABS: MAGNESIUM LEVEL 1.6 MG/DL (1.8-2.4)
[2022-05-02 06:05] LABS: BLOOD UREA NITROGEN 13 MG/DL (9-23); CALCIUM LEVEL 8.3 MG/DL (8.3-10.6); CARBON DIOXIDE LEVEL 27 MMOL/L (20-31); CHLORIDE LEVEL 104 MMOL/L (98-107); CREATININE FOR GFR 0.61 MG/DL (0.55-1.30); GLOMERULAR FILTRATION RATE > 60.0 (>39); GLUCOSE, FASTING 149 MG/DL (74-106); POTASSIUM SERUM 4.2 MMOL/L (3.5-5.1); SODIUM LEVEL 138 MMOL/L (136-145)
[2022-05-02] MEDS: DULoxetine 30MG CAPSULE (CYMBALTA) PO SCH (08:33)
[2022-05-02] MEDS: DOCUSATE SODIUM 100MG CAPSULE PO SCH (08:34)
[2022-05-02] MEDS: KETOROLAC 30 MG/ML 1ML VIAL IV PRN (08:35)
[2022-05-02] MEDS: GABAPENTIN 400MG CAP PO SCH (08:35)
[2022-05-02] MEDS: INSULIN LISPRO (NovoLOG) PER UNIT SC SCH ×2 (08:36→12:37)
[2022-05-02] MEDS: MAG SULF 1GM/100ML (MAG RUN) 1 GM in IV 1 EA IV SCH ×2 (08:39→11:30)
[2022-05-02] MEDS ORDERED: ASPIRIN 81MG ENTERIC TABLET PO SCH (09:00)
[2022-05-02] MEDS ORDERED: LIDOCAINE 5% (LIDODERM) PATCH TD SCH (09:00)
[2022-05-02] MEDS ORDERED: LEVEMIR (INSULIN DETEMIR) 1 UNITS/0.01ML SC SCH (09:00)
[2022-05-02] MEDS ORDERED: OMEPRAZOLE 20MG CAP PO SCH (09:00)
[2022-05-02] MEDS ORDERED: TAMSULOSIN 0.4 MG CAP PO SCH (09:00)
[2022-05-02] MEDS ORDERED: PERCOCET 5MG/325MG TAB PO PRN (10:10)
[2022-05-02 12:35] VITALS: BP 156/83
[2022-05-02] MEDS ORDERED: KETOROLAC 30 MG/ML 1ML VIAL IV PRN (12:55)
[2022-05-02 14:15] VITALS: BP 145/76
[2022-05-02] MEDS ORDERED: MIRA3350 PO (14:53)
[2022-05-02] MEDS ORDERED: LISI10TA22 PO (14:53)
[2022-05-02] MEDS ORDERED: LIDO5TD TD (14:53)
[2022-05-02] MEDS ORDERED: COLA100C5 PO ×2 (14:53→14:55)
[2022-05-02] MEDS ORDERED: PERCOCET PO (14:53)
[2022-05-02] MEDS ORDERED: MAGN200T10 PO (14:56)
== END 2022-05-02 16:10 | disposition home or self-care (01) | DRG 552 ==
LOC: M ED 13:50 → M ED INP 18:53 → ENRESERV 20:39 → M MS5PR 22:10
PROVIDERS: ADMIT Internal Medicine; ATTEND Internal Medicine
DX: S32.10XA Unspecified fracture of sacrum, initial encounter for closed fracture (principal); S13.4XXA Sprain of ligaments of cervical spine, initial encounter; E78.5 Hyperlipidemia, unspecified; I10 Essential (primary) hypertension; G47.33 Obstructive sleep apnea (adult) (pediatric); K21.9 Gastro-esophageal reflux disease without esophagitis; E11.9 Type 2 diabetes mellitus without complications; F03.90 Unspecified dementia, unspecified severity, without behavioral disturbance, psychotic disturbance, mood disturbance, and anxiety; I95.1 Orthostatic hypotension; N20.0 Calculus of kidney; Z98.41 Cataract extraction status, right eye; Z98.42 Cataract extraction status, left eye; Z90.49 Acquired absence of other specified parts of digestive tract; Z90.79 Acquired absence of other genital organ(s); F32.A Depression, unspecified; F41.9 Anxiety disorder, unspecified; W00.0XXA Fall on same level due to ice and snow, initial encounter; Y92.9 Unspecified place or not applicable; Z20.822 Contact with and (suspected) exposure to COVID-19

== ENCOUNTER → 2022-05-07 | Outpatient (CLI) | payer MEDICARE ==
[~2022-05-07] MED LIST changes: +ALEN70TA82 PO; +ASPI81TA26 PO; +ATOR1TAB21 PO; +GABA-283 PO; +KETO10TAB PO; +LIDO5TD TD; +MAGN200T10 PO; +MIRA3350 PO; +PERCOCET PO; +TAMS1CAP17 PO; +[UNRECOGNIZED DRUG - CODE] SL
== END ==
LOC: M SOG 07:57
PROVIDERS: ATTEND Orthopaedic Surgery
DX: M53.3 Sacrococcygeal disorders, not elsewhere classified (principal)

== ENCOUNTER → 2022-05-19 | Outpatient (CLI) | payer MEDICARE ==
[~2022-05-19] MED LIST changes: +CYAN500T14 PO; +DIPH50CA PO
[2022-05-19 16:01] LABS: HEMATOCRIT 32.2 % (36.0-47.0); HEMOGLOBIN 9.8 g/dl (12.0-15.5); MEAN CORPUSCULAR HEMOGLOBIN 29.7 pg (27.0-33.0); MEAN CORPUSCULAR HGB CONC 30.4 g/dl (32.0-36.5); MEAN CORPUSCULAR VOLUME 97.6 fl (80.0-96.0); PLATELET COUNT, AUTOMATED 322 10^3/uL (150-450); WHITE BLOOD COUNT 5.9 10^3/uL (4.0-10.0)
[2022-05-19 16:07] LABS: APPEARANCE, URINE MANUAL CLEAR (CLEAR); COLOR, URINE MANUAL YELLOW (YELLOW)
[2022-05-19 16:08] LABS: BILIRUBIN, URINE MANUAL NEGATIVE (NEGATIVE); BLOOD URINE MANUAL TRACE (NEGATIVE); GLUCOSE, URINE (UA) MANUAL 1+(100 MG/DL) mg/dL (NEGATIVE); KETONE, URINE MANUAL NEGATIVE (NEGATIVE); LEUKOCYTE ESTERASE, URINE MAN POSITIVE (NEGATIVE); NITRITE, URINE MANUAL NEGATIVE (NEGATIVE); PROTEIN, URINE MANUAL NEGATIVE (NEGATIVE); UROBILINOGEN, URINE MANUAL NORMAL (NORMAL)
[2022-05-19 16:22] LABS: BLOOD UREA NITROGEN 14 MG/DL (9-23); CALCIUM LEVEL 8.6 MG/DL (8.3-10.6); CARBON DIOXIDE LEVEL 29 MMOL/L (20-31); CHLORIDE LEVEL 104 MMOL/L (98-107); CREATININE FOR GFR 0.67 MG/DL (0.55-1.30); GLOMERULAR FILTRATION RATE > 60.0 (>39); GLUCOSE, FASTING 187 MG/DL (74-106); POTASSIUM SERUM 4.5 MMOL/L (3.5-5.1); SODIUM LEVEL 137 MMOL/L (136-145)
[2022-05-19 17:17] LABS: BACTERIA, URINE NONE SEEN; CALCIUM OXALATE CRYSTALS,URINE LARGE AMOUNT /hpf; HYALINE CAST, URINE NONE SEEN /lpf (0-1); MUCUS, URINE LARGE AMOUNT (NEGATIVE); SQUAMOUS EPITHELIAL CELL URINE MOD AMOUNT /hpf (SMALL AMT)
== END ==
LOC: M PLALAB 10:34
PROVIDERS: ATTEND Physician Assistant
DX: N20.0 Calculus of kidney (principal)

== ENCOUNTER → 2022-05-21 | Outpatient (CLI) | payer MEDICARE | LOC: M LABSMTC 09:55 | PROVIDERS: ATTEND Anesthesiology | DX: Z01.812 Encounter for preprocedural laboratory examination (principal); Z20.822 Contact with and (suspected) exposure to COVID-19 ==

== ENCOUNTER 2022-05-26 06:07 | Day surgery (SDC) | payer MEDICARE ==
[~2022-05-26] VITALS: Ht 170.2 cm; Wt 74.4 kg
[2022-05-26] MEDS ORDERED: ceFAZolin SOD 2 GM in IV 1 EA IV ONE (06:15)
[2022-05-26] MEDS ORDERED: LIDOCAINE 2% 100MG/5ML SDV (FOR ANES.) As Ordered ONE (07:07)
[2022-05-26] MEDS ORDERED: propofoL 200 MG/20 ML VIAL As Ordered ONE (07:07)
[2022-05-26] MEDS ORDERED: MIDAZOLAM INJ 2MG/2ML VIAL As Ordered ONE (07:08)
[2022-05-26] MEDS ORDERED: ISOVUE-300 61% 100ML VIAL As Ordered ONE (07:08)
[2022-05-26] MEDS ORDERED: fentaNYL 100 MCG/2 ML INJECTION As Ordered ONE ×2 (07:08→08:47)
[2022-05-26] MEDS ORDERED: ONDANSETRON 4MG 2ML VIAL As Ordered ONE (07:45)
[2022-05-26] MEDS ORDERED: ACETAMINOPHEN 1000MG 100ML IV BAG As Ordered ONE (07:45)
[2022-05-26] MEDS ORDERED: ePHEDrine SULFATE 25 MG/5 ML(5MG/ML) SYRINGE As Ordered ONE (07:51)
[2022-05-26] MEDS ORDERED: PHENYLephrine 500MCG 5ML (100MCG/ML) SYRINGE As Ordered ONE (07:55)
[2022-05-26] MEDS ORDERED: PERCOCET 5MG/325MG TAB PO PRN (08:45)
[2022-05-26] MEDS ORDERED: LR 1,000 ML IV SCH (08:50)
[2022-05-26] MEDS ORDERED: LIDOCAINE 1% SDV 5ML VIAL SC PRN (08:50)
[2022-05-26] MEDS: fentaNYL 100 MCG/2 ML INJECTION IV PRN ×4 (08:50→09:05)
[2022-05-26] MEDS ORDERED: ONDANSETRON 4MG 2ML VIAL IV PRN (08:50)
[2022-05-26] MEDS: oxyCODONE 5MG TAB PO PRN ×2 (09:00→09:37)
[2022-05-26] MEDS ORDERED: traMADol 50 MG TAB PO ONE (09:15)
[2022-05-26 10:15] VITALS: BP 118/71
== END 2022-05-26 10:30 | disposition home or self-care (01) ==
LOC: M SDC 06:07
PROVIDERS: ATTEND Urology
DX: N20.0 Calculus of kidney (principal); E11.9 Type 2 diabetes mellitus without complications; E78.5 Hyperlipidemia, unspecified; F32.A Depression, unspecified; G90.50 Complex regional pain syndrome I, unspecified; Z87.442 Personal history of urinary calculi; Z87.440 Personal history of urinary (tract) infections; G47.33 Obstructive sleep apnea (adult) (pediatric); D50.9 Iron deficiency anemia, unspecified; K21.9 Gastro-esophageal reflux disease without esophagitis; G62.9 Polyneuropathy, unspecified; Z79.899 Other long term (current) drug therapy; Z79.891 Long term (current) use of opiate analgesic; Z79.4 Long term (current) use of insulin; Z79.84 Long term (current) use of oral hypoglycemic drugs; Z79.82 Long term (current) use of aspirin; Z88.8 Allergy status to other drugs, medicaments and biological substances; Z86.16 Personal history of COVID-19
CPT/HCPCS: 52356; 74420; 82365; C1769; C2617; J2370; J2405; Q9967

== ENCOUNTER → 2022-06-06 | Outpatient (CLI) | payer MEDICARE ==
[2022-06-06 15:54] LABS: BLOOD UREA NITROGEN 15 MG/DL (9-23); CALCIUM LEVEL 9.2 MG/DL (8.3-10.6); CARBON DIOXIDE LEVEL 30 MMOL/L (20-31); CHLORIDE LEVEL 99 MMOL/L (98-107); GLOMERULAR FILTRATION RATE > 60.0 (>39); GLUCOSE, FASTING 223 MG/DL (74-106); POTASSIUM SERUM 4.7 MMOL/L (3.5-5.1); SODIUM LEVEL 137 MMOL/L (136-145)
== END ==
LOC: M PLALAB 12:53
PROVIDERS: ATTEND Student in an Organized Health Care Education/Training Program
DX: S32.10XA Unspecified fracture of sacrum, initial encounter for closed fracture (principal); X58.XXXA Exposure to other specified factors, initial encounter; Y92.9 Unspecified place or not applicable; Y93.9 Activity, unspecified; Y99.9 Unspecified external cause status

== ENCOUNTER → 2022-06-06 | Outpatient (CLI) | payer MEDICARE ==
[2022-06-06 15:58] LABS: FOLATE 20.5 NG/ML (>5.4)
[2022-06-06 16:02] LABS: VITAMIN B12 LEVEL > 2000 PG/ML (211-911)
== END ==
LOC: M PLALAB 12:50
PROVIDERS: ATTEND Psychiatry & Neurology Neurology
DX: E53.8 Deficiency of other specified B group vitamins (principal); E51.9 Thiamine deficiency, unspecified

== ENCOUNTER → 2022-06-18 | Outpatient (REF) | payer MEDICARE | LOC: M SFHCPLAZ 08:56 | PROVIDERS: ATTEND Family Medicine | DX: Z53.8 Procedure and treatment not carried out for other reasons (principal) ==

== ENCOUNTER → 2022-06-18 | Outpatient (CLI) | payer MEDICARE ==
[2022-06-18 10:13] LABS: HEMATOCRIT 34.7 % (36.0-47.0); MEAN CORPUSCULAR HEMOGLOBIN 29.5 pg (27.0-33.0); MEAN CORPUSCULAR HGB CONC 31.7 g/dl (32.0-36.5); PLATELET COUNT, AUTOMATED 325 10^3/uL (150-450); RED BLOOD COUNT 3.73 10^6/uL (4.00-5.40); WHITE BLOOD COUNT 6.5 10^3/uL (4.0-10.0)
== END ==
LOC: M PLALAB 09:02
PROVIDERS: ATTEND Student in an Organized Health Care Education/Training Program
DX: D64.9 Anemia, unspecified (principal)

== ENCOUNTER → 2022-07-16 | Outpatient (REF) | payer MEDICARE | LOC: M SFHCPLAZ 09:24 | PROVIDERS: ATTEND Family Medicine | DX: E11.8 Type 2 diabetes mellitus with unspecified complications (principal); E78.5 Hyperlipidemia, unspecified ==

== ENCOUNTER → 2022-07-17 | Outpatient (REF) | payer MEDICARE ==
[2022-07-17 11:42] LABS: APPEARANCE, URINE CLOUDY (CLEAR); BACTERIA, URINE AUTO 2+ (NEGATIVE); BILIRUBIN, URINE AUTO NEGATIVE (NEGATIVE); BLOOD, URINE BLOOD NEGATIVE (NEGATIVE); CALCIUM OXALATE CRYSTALS MODERATE; COLOR, URINE YELLOW (YELLOW); GLUCOSE, URINE (UA) AUTO 3+ mg/dL (NEGATIVE); KETONE, URINE AUTO TRACE mg/dL (NEGATIVE); LEUKOCYTE ESTERASE, URINE AUTO 3+ (NEGATIVE); MUCUS, URINE SMALL (NEGATIVE); NITRITE, URINE AUTO POSITIVE (NEGATIVE); PROTEIN, URINE AUTO 1+ mg/dL (NEGATIVE); RBC, URINE AUTO 3 /HPF (0-3); SPECIFIC GRAVITY URINE AUTO 1.021 (1.002-1.035); SQUAMOUS EPITHELIAL CELL UR AU 1 /HPF (0-6); UROBILINOGEN, URINE AUTO 0.2 mg/dL (0.0-2.0); WBC, URINE AUTO TNTC /HPF (0-3)
== END ==
LOC: M SMT 10:08
PROVIDERS: ATTEND Physician Assistant
DX: R30.0 Dysuria (principal)

== ENCOUNTER → 2022-07-31 | Outpatient (CLI) | payer MEDICARE ==
[2022-07-31 11:06] LABS: CHOLESTEROL RISK RATIO 2.85 (<5); HDL CHOLESTEROL 52.6 MG/DL (>40); LDL CHOLESTEROL 77.8 MG/DL (<100); NON-HDL-C 97.4 MG/DL
[2022-07-31 12:05] LABS: HEMOGLOBIN A1c 8.9 % (4.0-6.0)
== END ==
LOC: M PLALAB 07:55
PROVIDERS: ATTEND Student in an Organized Health Care Education/Training Program
DX: E11.8 Type 2 diabetes mellitus with unspecified complications (principal); E78.5 Hyperlipidemia, unspecified

== ENCOUNTER → 2022-09-08 | Outpatient (CLI) | payer MEDICARE ==
[~2022-09-08] MED LIST changes: +POTA-298 PO; -POTA1TAB14 PO
== END ==
LOC: M WHC 08-14 13:17
PROVIDERS: ATTEND Student in an Organized Health Care Education/Training Program
DX: R39.9 Unspecified symptoms and signs involving the genitourinary system (principal)

== ENCOUNTER → 2022-11-24 | Outpatient (CLI) | payer MEDICARE | LOC: M PLALAB 08:25 | PROVIDERS: ATTEND Student in an Organized Health Care Education/Training Program | DX: E11.9 Type 2 diabetes mellitus without complications (principal) ==

== ENCOUNTER → 2022-11-25 | Outpatient (CLI) | payer MEDICARE ==
[~2022-11-25] MED LIST changes: -GABA-283 PO; +GABA-284 PO
== END ==
LOC: M WHC 12:40
PROVIDERS: ATTEND Student in an Organized Health Care Education/Training Program
DX: M81.0 Age-related osteoporosis without current pathological fracture (principal); M85.851 Other specified disorders of bone density and structure, right thigh; M85.852 Other specified disorders of bone density and structure, left thigh

== ENCOUNTER → 2022-12-01 | Outpatient (CLI) | payer MEDICARE | LOC: M PLARAD 09:38 | PROVIDERS: ATTEND Urology | DX: N20.0 Calculus of kidney (principal) ==

== ENCOUNTER → 2023-01-06 | Outpatient (REF) | payer MEDICARE | LOC: M SFHCPLAZ 13:58 | PROVIDERS: ATTEND Student in an Organized Health Care Education/Training Program | DX: H66.90 Otitis media, unspecified, unspecified ear (principal); E11.8 Type 2 diabetes mellitus with unspecified complications ==

== ENCOUNTER → 2023-01-30 | Outpatient (CLI) | payer MEDICARE ==
[2023-01-30 11:40] LABS: BLOOD UREA NITROGEN 14 MG/DL (9-23); CREATININE FOR GFR 0.65 MG/DL (0.55-1.30); GLOMERULAR FILTRATION RATE > 60.0 (>39)
[2023-01-30 11:42] LABS: VITAMIN B12 LEVEL 1546 PG/ML (211-911)
[2023-01-30 11:43] LABS: THYROID STIMULATING HORMONE 2.192 uIU/ML (0.55-4.78)
[2023-01-30 11:45] LABS: FOLATE > 24.0 NG/ML (>5.4)
== END ==
LOC: M LAB 10:42
PROVIDERS: ATTEND Psychiatry & Neurology Neurology
DX: F80.1 Expressive language disorder (principal); E07.9 Disorder of thyroid, unspecified

== ENCOUNTER → 2023-02-24 | Outpatient (CLI) | payer MEDICARE ==
[~2023-02-24] MED LIST changes: -CEFD300C41 PO; +CEFD300C42 PO; +GLIP5TAB17 PO; -GLIP5TAB8 PO
[2023-02-24 14:24] LABS: HEMOGLOBIN A1c 6.9 % (4.0-6.0)
== END ==
LOC: M PLALAB 10:14
PROVIDERS: ATTEND Student in an Organized Health Care Education/Training Program
DX: E11.8 Type 2 diabetes mellitus with unspecified complications (principal)

== ENCOUNTER → 2023-03-02 | Outpatient (CLI) | payer MEDICARE | LOC: M WHC 08:04 | PROVIDERS: ATTEND Student in an Organized Health Care Education/Training Program | DX: Z12.31 Encounter for screening mammogram for malignant neoplasm of breast (principal) ==

== ENCOUNTER → 2023-05-28 | Outpatient (CLI) | payer MEDICARE, MEDICAID ==
[~2023-05-28] MED LIST changes: +CEFD1CAP9 PO; -CEFD300C42 PO
== END ==
LOC: M PLAIMG 10:07
PROVIDERS: ATTEND Physician Assistant
DX: Z87.442 Personal history of urinary calculi (principal); K59.00 Constipation, unspecified

== ENCOUNTER → 2023-06-24 | Outpatient (CLI) | payer MEDICARE ==
[2023-06-24 14:49] LABS: HEMOGLOBIN A1c 7.1 % (4.0-6.0)
[2023-06-24 14:59] LABS: CREATININE, URINE 20.8 MG/DL; MALB URINE SIEMENS < 3.0 MG/L; MAU/CREAT RATIO 14.4 MCG/MG (0.0-30.0)
== END ==
LOC: M PLALAB 09:58
PROVIDERS: ATTEND Student in an Organized Health Care Education/Training Program
DX: E11.8 Type 2 diabetes mellitus with unspecified complications (principal); I10 Essential (primary) hypertension

== ENCOUNTER 2023-07-27 17:01 | Emergency (ER) | payer MEDICARE, OTHER ==
[~2023-07-27] VITALS: Ht 170.2 cm; Wt 71.2 kg
[2023-07-27] MEDS: KETOROLAC 30 MG/ML 1ML VIAL IV ONE (19:40)
[2023-07-27] MEDS: METHOCARBAMOL 1,000 MG/10 ML VIAL IV ONE (20:02)
[2023-07-27 20:30] VITALS: O2SAT 100
[2023-07-27 20:44] LABS: BASO # 0.1 10^3/uL (0.0-0.2); BASO % 0.6 % (0.0-1.0); EOS # 0.1 10^3/uL (0.0-0.5); EOS % 1.2 % (0.0-3.0); HEMATOCRIT 31.3 % (36.0-47.0); LYMPH # 2.3 10^3/uL (1.5-5.0); LYMPH % 21.6 % (24.0-44.0); MEAN CORPUSCULAR HEMOGLOBIN 28.2 pg (27.0-33.0); MEAN CORPUSCULAR HGB CONC 31.9 g/dl (32.0-36.5); MEAN CORPUSCULAR VOLUME 88.4 fl (80.0-96.0); MONO # 1.2 10^3/uL (0.0-0.8); MONO % 11.2 % (2.0-8.0); NEUTROPHILS % 65.1 % (36.0-66.0); PLATELET COUNT, AUTOMATED 287 10^3/uL (150-450); RED BLOOD COUNT 3.54 10^6/uL (4.00-5.40); WHITE BLOOD COUNT 10.7 10^3/uL (4.0-10.0)
[2023-07-27 20:54] LABS: BLOOD UREA NITROGEN 10 MG/DL (9-23); CALCIUM LEVEL 8.9 MG/DL (8.3-10.6); CARBON DIOXIDE LEVEL 24 MMOL/L (20-31); CHLORIDE LEVEL 107 MMOL/L (98-107); CREATININE FOR GFR 0.61 MG/DL (0.55-1.30); GLOMERULAR FILTRATION RATE > 60.0 (>39); GLUCOSE, FASTING 78 MG/DL (74-106); POTASSIUM SERUM 3.5 MMOL/L (3.5-5.1); SODIUM LEVEL 141 MMOL/L (136-145)
[2023-07-27] MEDS ORDERED: METH-1165 PO (22:07)
[2023-07-27] MEDS ORDERED: NAPR-837 PO (22:07)
[2023-07-27] MEDS: NORCO 5/325MG TABLET (HOME DOSE PACK) PO ONE (22:17)
[2023-07-27 22:26] VITALS: BP 128/74; TEMP 98.8
== END 2023-07-27 22:28 | disposition home or self-care (01) ==
LOC: M ED 17:01
DX: S13.4XXA Sprain of ligaments of cervical spine, initial encounter (principal); Y92.9 Unspecified place or not applicable; Y93.9 Activity, unspecified; Y99.9 Unspecified external cause status; E11.9 Type 2 diabetes mellitus without complications; K21.9 Gastro-esophageal reflux disease without esophagitis; Z88.8 Allergy status to other drugs, medicaments and biological substances; Z79.899 Other long term (current) drug therapy; Z79.1 Long term (current) use of non-steroidal anti-inflammatories (NSAID); Z79.4 Long term (current) use of insulin; Z79.84 Long term (current) use of oral hypoglycemic drugs
CPT/HCPCS: 70450; 72125; 80048; 85025; 96374; 96375; 99284; J1885; J2800

== ENCOUNTER → 2023-08-17 | Outpatient (CLI) | payer MEDICARE ==
[~2023-08-17] MED LIST changes: +DOXY-440 PO; -DOXY-444 PO; +METH-1165 PO; +NAPR-837 PO; -SUMA4INJ6 SC; +SUMA4PEN SC
== END ==
LOC: M PLAIMG 16:43
PROVIDERS: ATTEND Student in an Organized Health Care Education/Training Program
DX: J11.1 Influenza due to unidentified influenza virus with other respiratory manifestations (principal)

== ENCOUNTER → 2023-09-14 | Outpatient (REF) | payer MEDICARE, OTHER | LOC: M SFHCPLAZ 16:45 | PROVIDERS: ATTEND Student in an Organized Health Care Education/Training Program | DX: N39.0 Urinary tract infection, site not specified (principal) ==

== ENCOUNTER → 2023-10-15 | Outpatient (REF) | payer MEDICARE, MEDICAID | LOC: M SFHCPLAZ 17:07 | PROVIDERS: ATTEND Student in an Organized Health Care Education/Training Program | DX: Z00.00 Encounter for general adult medical examination without abnormal findings (principal); R35.0 Frequency of micturition ==

== ENCOUNTER 2023-10-18 14:57 | Emergency (ER) | payer MEDICARE, MEDICAID ==
[~2023-10-18] VITALS: Ht 170.2 cm; Wt 68.3 kg
[2023-10-18 18:04] VITALS: BP 154/77; TEMP 96.6; O2SAT 99
== END 2023-10-18 18:08 | disposition home or self-care (01) ==
LOC: M ED 14:57
DX: H53.132 Sudden visual loss, left eye (principal); Z79.1 Long term (current) use of non-steroidal anti-inflammatories (NSAID); Z79.4 Long term (current) use of insulin; Z79.84 Long term (current) use of oral hypoglycemic drugs; Z79.899 Other long term (current) drug therapy

== ENCOUNTER → 2023-10-21 | Outpatient (CLI) | payer MEDICARE, MEDICAID ==
[~2023-10-21] MED LIST changes: +NIRM1TAB14 PO
[2023-10-21 11:49] LABS: BLOOD UREA NITROGEN 12 MG/DL (9-23); CALCIUM LEVEL 8.7 MG/DL (8.3-10.6); CARBON DIOXIDE LEVEL 27 MMOL/L (20-31); CHLORIDE LEVEL 108 MMOL/L (98-107); CREATININE FOR GFR 0.61 MG/DL (0.55-1.30); GLOMERULAR FILTRATION RATE > 60.0 (>39); GLUCOSE, FASTING 113 MG/DL (74-106); POTASSIUM SERUM 4.2 MMOL/L (3.5-5.1); SODIUM LEVEL 140 MMOL/L (136-145)
== END ==
LOC: M LAB 10:58
PROVIDERS: ATTEND Student in an Organized Health Care Education/Training Program
DX: Z01.818 Encounter for other preprocedural examination (principal); H33.052 Total retinal detachment, left eye

== ENCOUNTER 2023-10-25 09:29 | Emergency (ER) | payer MEDICARE, MEDICAID ==
[~2023-10-25] VITALS: Ht 170.2 cm; Wt 68.4 kg
[~2023-10-25 09:29] MED LIST changes: -NIRM1TAB14 PO
[2023-10-25] MEDS: ACETAMINOPHEN TAB 650MG DOSE (2X325MG) PO ONE (11:09)
[2023-10-25 13:30] VITALS: BP 114/56; O2SAT 96
[2023-10-25] MEDS ORDERED: NIRM1TAB14 PO (13:35)
[2023-10-25 14:06] VITALS: TEMP 98.9
== END 2023-10-25 14:07 | disposition home or self-care (01) ==
LOC: M ED 09:29
DX: U07.1 COVID-19 (principal); E11.9 Type 2 diabetes mellitus without complications; E78.5 Hyperlipidemia, unspecified; D50.9 Iron deficiency anemia, unspecified; G47.33 Obstructive sleep apnea (adult) (pediatric); Z79.1 Long term (current) use of non-steroidal anti-inflammatories (NSAID); Z79.4 Long term (current) use of insulin; Z79.84 Long term (current) use of oral hypoglycemic drugs; Z79.899 Other long term (current) drug therapy

== ENCOUNTER → 2023-11-17 | Outpatient (CLI) | payer MEDICARE, MEDICAID ==
[~2023-11-17] MED LIST changes: +NIRM1TAB14 PO
[2023-11-17 11:39] LABS: CHOLESTEROL RISK RATIO 3.44 (<5); HDL CHOLESTEROL 45.6 MG/DL (>40); LDL CHOLESTEROL 80.2 MG/DL (<100); NON-HDL-C 111.4 MG/DL
[2023-11-17 11:58] LABS: HEMOGLOBIN A1c 8.4 % (4.0-6.0)
== END ==
LOC: M PLALAB 08:11
PROVIDERS: ATTEND Student in an Organized Health Care Education/Training Program
DX: E11.8 Type 2 diabetes mellitus with unspecified complications (principal); E78.5 Hyperlipidemia, unspecified

== ENCOUNTER 2023-12-01 11:08 | Emergency (ER) | payer MEDICARE, MEDICAID ==
[~2023-12-01] VITALS: Ht 170.2 cm; Wt 67.5 kg
[~2023-12-01 11:08] MED LIST changes: -ONDA-282 PO
[2023-12-01] MEDS: NS 1,000 ML IV SCH (13:27)
[2023-12-01] MEDS: ONDANSETRON 4MG 2ML VIAL IV ONE (13:27)
[2023-12-01] MEDS: GASTROGRAFIN SOLUTION 30ML PO SCH (13:32)
[2023-12-01 13:34] LABS: BASO # 0.1 10^3/uL (0.0-0.2); BASO % 1.3 % (0.0-1.0); EOS # 0.1 10^3/uL (0.0-0.5); EOS % 1.3 % (0.0-3.0); HEMATOCRIT 33.4 % (36.0-47.0); HEMOGLOBIN 10.5 g/dl (12.0-15.5); LYMPH # 1.7 10^3/uL (1.5-5.0); LYMPH % 28.6 % (24.0-44.0); MEAN CORPUSCULAR HEMOGLOBIN 28.2 pg (27.0-33.0); MEAN CORPUSCULAR HGB CONC 31.4 g/dl (32.0-36.5); MEAN CORPUSCULAR VOLUME 89.5 fl (80.0-96.0); MONO # 0.7 10^3/uL (0.0-0.8); MONO % 11.2 % (2.0-8.0); NEUTROPHILS # 3.5 10^3/uL (1.5-8.5); NEUTROPHILS % 57.4 % (36.0-66.0); PLATELET COUNT, AUTOMATED 299 10^3/uL (150-450); RED BLOOD COUNT 3.73 10^6/uL (4.00-5.40); WHITE BLOOD COUNT 6.1 10^3/uL (4.0-10.0)
[2023-12-01 13:46] LABS: LIPASE 24 U/L (12-53)
[2023-12-01 13:48] LABS: ALBUMIN 4.3 G/DL (3.2-5.2); ALKALINE PHOSPHATASE 61 U/L (46-116); ALT/SGPT 19 U/L (7.0-40); AST/SGOT 22 U/L (<34); BILIRUBIN,DIRECT 0.1 MG/DL (<0.4); BILIRUBIN,TOTAL 0.4 MG/DL (0.3-1.2); BLOOD UREA NITROGEN 9 MG/DL (9-23); CALCIUM LEVEL 9.2 MG/DL (8.3-10.6); CARBON DIOXIDE LEVEL 25 MMOL/L (20-31); CHLORIDE LEVEL 107 MMOL/L (98-107); CREATININE FOR GFR 0.65 MG/DL (0.55-1.30); GLOMERULAR FILTRATION RATE > 60.0 (>39); GLUCOSE, FASTING 72 MG/DL (74-106); POTASSIUM SERUM 4.2 MMOL/L (3.5-5.1); SODIUM LEVEL 138 MMOL/L (136-145); TOTAL PROTEIN 6.9 G/DL (5.7-8.2)
[2023-12-01] MEDS ORDERED: ISOVUE-370 76% 100ML VIAL As Ordered ONE (14:09)
[2023-12-01] MEDS ORDERED: ONDA-282 PO (15:46)
[2023-12-01 15:53] VITALS: O2SAT 99
[2023-12-01 16:00] VITALS: BP 127/65; TEMP 98
== END 2023-12-01 16:09 | disposition home or self-care (01) ==
LOC: M ED 11:08
DX: R11.0 Nausea (principal); K86.89 Other specified diseases of pancreas; E11.9 Type 2 diabetes mellitus without complications; G47.33 Obstructive sleep apnea (adult) (pediatric); D50.9 Iron deficiency anemia, unspecified; K21.9 Gastro-esophageal reflux disease without esophagitis; E78.5 Hyperlipidemia, unspecified; F43.10 Post-traumatic stress disorder, unspecified; F41.9 Anxiety disorder, unspecified; F32.A Depression, unspecified; F42.9 Obsessive-compulsive disorder, unspecified; Z79.1 Long term (current) use of non-steroidal anti-inflammatories (NSAID); Z79.4 Long term (current) use of insulin; Z79.84 Long term (current) use of oral hypoglycemic drugs; Z79.899 Other long term (current) drug therapy
CPT/HCPCS: 74177; 80048; 80076; 81002; 83605; 83690; 85025; 87088; 87186; 93005; 93041; 96361; 96372; 96374; 99285; G0463; J0696; J2405; Q9963; Q9967

== ENCOUNTER → 2023-12-01 | Outpatient (REF) | payer MEDICARE, MEDICAID, OTHER ==
[~2023-12-01] MED LIST changes: +ONDA-282 PO
== END ==
LOC: M SFHCPLAZ 12:45
PROVIDERS: ATTEND Student in an Organized Health Care Education/Training Program
DX: N30.90 Cystitis, unspecified without hematuria (principal)

== ENCOUNTER → 2023-12-07 | Outpatient (CLI) | payer MEDICARE, MEDICAID ==
[~2023-12-07] MED LIST changes: +ONDA-282 PO
[2023-12-07 10:56] LABS: PERCENT SATURATION 9.7 % (13.2-45.0)
[2023-12-07 11:00] LABS: FREE T4 1.03 NG/DL (0.89-1.76); THYROID STIMULATING HORMONE 3.496 uIU/ML (0.55-4.78)
[2023-12-07 12:23] LABS: BASO # 0.1 10^3/uL (0.0-0.2); BASO % 1.1 % (0.0-1.0); EOS # 0.3 10^3/uL (0.0-0.5); EOS % 3.9 % (0.0-3.0); HEMATOCRIT 34.2 % (36.0-47.0); HEMOGLOBIN 10.8 g/dl (12.0-15.5); LYMPH # 1.8 10^3/uL (1.5-5.0); LYMPH % 27.3 % (24.0-44.0); MEAN CORPUSCULAR HEMOGLOBIN 28.6 pg (27.0-33.0); MEAN CORPUSCULAR HGB CONC 31.6 g/dl (32.0-36.5); MEAN CORPUSCULAR VOLUME 90.5 fl (80.0-96.0); MONO # 0.8 10^3/uL (0.0-0.8); NEUTROPHILS # 3.6 10^3/uL (1.5-8.5); NEUTROPHILS % 55.5 % (36.0-66.0); PLATELET COUNT, AUTOMATED 273 10^3/uL (150-450); RED BLOOD COUNT 3.78 10^6/uL (4.00-5.40); WHITE BLOOD COUNT 6.5 10^3/uL (4.0-10.0)
[2023-12-08 08:53] LABS: FERRITIN 4.4 NG/ML (7.3-270.7)
[2023-12-08 12:08] LABS: B12 DEFIECIENCY 990 pg/mL (232-1245)
== END ==
LOC: M PLALAB 07:58
PROVIDERS: ATTEND Student in an Organized Health Care Education/Training Program
DX: D64.9 Anemia, unspecified (principal)

== ENCOUNTER → 2023-12-08 | Outpatient (REF) | payer MEDICARE, OTHER, MEDICAID | LOC: M SFHCPLAZ 11:45 | PROVIDERS: ATTEND Student in an Organized Health Care Education/Training Program | DX: R10.9 Unspecified abdominal pain (principal) ==

== ENCOUNTER → 2023-12-14 | Outpatient (CLI) | payer MEDICARE, OTHER ==
[2023-12-14 17:27] LABS: BASO % 0.6 % (0.0-1.0); EOS # 0.1 10^3/uL (0.0-0.5); EOS % 1.7 % (0.0-3.0); HEMATOCRIT 32.7 % (36.0-47.0); HEMOGLOBIN 10.3 g/dl (12.0-15.5); LYMPH # 1.9 10^3/uL (1.5-5.0); LYMPH % 26.5 % (24.0-44.0); MEAN CORPUSCULAR HEMOGLOBIN 28.1 pg (27.0-33.0); MEAN CORPUSCULAR HGB CONC 31.5 g/dl (32.0-36.5); MEAN CORPUSCULAR VOLUME 89.1 fl (80.0-96.0); MONO # 0.8 10^3/uL (0.0-0.8); NEUTROPHILS # 4.3 10^3/uL (1.5-8.5); NEUTROPHILS % 59.8 % (36.0-66.0); PLATELET COUNT, AUTOMATED 254 10^3/uL (150-450); RED BLOOD COUNT 3.67 10^6/uL (4.00-5.40); WHITE BLOOD COUNT 7.2 10^3/uL (4.0-10.0)
[2023-12-14 17:52] LABS: ALBUMIN 4.5 G/DL (3.2-5.2); ALKALINE PHOSPHATASE 65 U/L (46-116); ALT/SGPT 23 U/L (7.0-40); AST/SGOT 18 U/L (<34); BILIRUBIN,TOTAL 0.4 MG/DL (0.3-1.2); BLOOD UREA NITROGEN 11 MG/DL (9-23); CALCIUM LEVEL 9.6 MG/DL (8.3-10.6); CARBON DIOXIDE LEVEL 29 MMOL/L (20-31); CHLORIDE LEVEL 103 MMOL/L (98-107); CREATININE FOR GFR 0.71 MG/DL (0.55-1.30); GLOMERULAR FILTRATION RATE > 60.0 (>39); GLUCOSE, FASTING 97 MG/DL (74-106); MAGNESIUM LEVEL 1.6 MG/DL (1.8-2.4); POTASSIUM SERUM 3.9 MMOL/L (3.5-5.1); SODIUM LEVEL 137 MMOL/L (136-145); TOTAL PROTEIN 7.2 G/DL (5.7-8.2)
== END ==
LOC: M PLALAB 15:07
PROVIDERS: ATTEND Student in an Organized Health Care Education/Training Program
DX: E87.8 Other disorders of electrolyte and fluid balance, not elsewhere classified (principal); K27.9 Peptic ulcer, site unspecified, unspecified as acute or chronic, without hemorrhage or perforation

== ENCOUNTER → 2023-12-21 | Outpatient (CLI) | payer MEDICARE, MEDICAID ==
[~2023-12-21] MED LIST changes: +GABA-1490 PO; +GABA-1635 PO; -GABA600T4 PO; -GABA800T4 PO
== END ==
LOC: M RAD 09:19
PROVIDERS: ATTEND Physician Assistant
DX: Z87.442 Personal history of urinary calculi (principal); K59.00 Constipation, unspecified

== ENCOUNTER → 2024-01-12 | Outpatient (CLI) | payer MEDICARE, OTHER ==
[2024-01-12 10:47] LABS: HEMOGLOBIN A1c 7.6 % (4.0-6.0)
== END ==
LOC: M PLALAB 08:56
PROVIDERS: ATTEND Student in an Organized Health Care Education/Training Program
DX: E11.8 Type 2 diabetes mellitus with unspecified complications (principal)

== ENCOUNTER 2024-01-13 11:47 | Emergency (ER) | payer MEDICARE ==
[~2024-01-13] VITALS: Ht 170.2 cm; Wt 66.9 kg
[2024-01-13 12:19] LABS: BASO % 0.6 % (0.0-1.0); EOS # 0.2 10^3/uL (0.0-0.5); EOS % 2.4 % (0.0-3.0); HEMATOCRIT 32.2 % (36.0-47.0); HEMOGLOBIN 10.3 g/dl (12.0-15.5); LYMPH # 1.6 10^3/uL (1.5-5.0); LYMPH % 25.3 % (24.0-44.0); MEAN CORPUSCULAR HEMOGLOBIN 28.1 pg (27.0-33.0); MONO # 0.7 10^3/uL (0.0-0.8); NEUTROPHILS # 3.8 10^3/uL (1.5-8.5); NEUTROPHILS % 60.5 % (36.0-66.0); PLATELET COUNT, AUTOMATED 277 10^3/uL (150-450); RED BLOOD COUNT 3.66 10^6/uL (4.00-5.40); WHITE BLOOD COUNT 6.3 10^3/uL (4.0-10.0)
[2024-01-13 12:36] LABS: PROTHROMBIN TIME 12.9 SECONDS (12.5-14.5)
[2024-01-13 12:48] LABS: ALKALINE PHOSPHATASE 65 U/L (46-116); ALT/SGPT 17 U/L (7.0-40); AST/SGOT 16 U/L (<34); BILIRUBIN,DIRECT 0.1 MG/DL (<0.4); BILIRUBIN,TOTAL 0.4 MG/DL (0.3-1.2); BLOOD UREA NITROGEN 11 MG/DL (9-23); CALCIUM LEVEL 9.4 MG/DL (8.3-10.6); CARBON DIOXIDE LEVEL 26 MMOL/L (20-31); CHLORIDE LEVEL 105 MMOL/L (98-107); CK-MB VALUE MASS < 1.0 NG/ML (<3.6); CPK CREATINE PHOSPHOKINASE 77 U/L (34-145); CREATININE FOR GFR 0.64 MG/DL (0.55-1.30); GLOMERULAR FILTRATION RATE > 60.0 (>39); GLUCOSE, FASTING 182 MG/DL (74-106); MB/CK RELATIVE INDEX 1.29 (< OR =4); POTASSIUM SERUM 3.9 MMOL/L (3.5-5.1); SODIUM LEVEL 137 MMOL/L (136-145); TOTAL PROTEIN 6.7 G/DL (5.7-8.2)
[2024-01-13] MEDS ORDERED: ISOVUE-370 76% 100ML VIAL As Ordered ONE (15:21)
[2024-01-13] MEDS: ACETAMINOPHEN *IV* 1,000 MG in IV 1 EA IV ONE (16:05)
[2024-01-13 16:08] LABS: CK-MB VALUE MASS < 1.0 NG/ML (<3.6)
[2024-01-13 16:10] LABS: CPK CREATINE PHOSPHOKINASE 68 U/L (34-145); MB/CK RELATIVE INDEX 1.47 (< OR =4)
[2024-01-13 16:13] LABS: THYROID STIMULATING HORMONE 1.548 uIU/ML (0.55-4.78)
[2024-01-13 18:08] VITALS: BP 162/78; TEMP 97.8; O2SAT 97
== END 2024-01-13 18:39 | disposition home or self-care (01) ==
LOC: M ED 11:47
DX: R07.89 Other chest pain (principal); R73.9 Hyperglycemia, unspecified; G47.33 Obstructive sleep apnea (adult) (pediatric); K21.9 Gastro-esophageal reflux disease without esophagitis; F41.9 Anxiety disorder, unspecified; F32.A Depression, unspecified; Z79.1 Long term (current) use of non-steroidal anti-inflammatories (NSAID); Z79.4 Long term (current) use of insulin; Z79.84 Long term (current) use of oral hypoglycemic drugs; Z79.899 Other long term (current) drug therapy
CPT/HCPCS: 70498; 71046; 71275; 80048; 80076; 82550; 82553; 84443; 84484; 85025; 85610; 85730; 87880; 93005; 93041; 96374; 99284; J0131; Q9967

== ENCOUNTER → 2024-02-24 | Outpatient (CLI) | payer MEDICARE, MEDICAID ==
[~2024-02-24] MED LIST changes: +GLIP10TA15; +GLIP10TA15 PO; -GLIP10TA6; -GLIP10TA6 PO
== END ==
LOC: M RAD 07:12
PROVIDERS: ATTEND Family Medicine
DX: R10.9 Unspecified abdominal pain (principal); K30 Functional dyspepsia
CPT/HCPCS: 78264; A9541

== ENCOUNTER → 2024-03-03 | Outpatient (CLI) | payer MEDICARE, MEDICAID | LOC: M WHC 11:38 | PROVIDERS: ATTEND Student in an Organized Health Care Education/Training Program | DX: Z12.31 Encounter for screening mammogram for malignant neoplasm of breast (principal); R92.323 Mammographic fibroglandular density, bilateral breasts ==

== ENCOUNTER → 2024-03-08 | Outpatient (CLI) | payer MEDICARE, MEDICAID | LOC: M PLAIMG 15:49 | PROVIDERS: ATTEND Student in an Organized Health Care Education/Training Program | DX: S22.080A Wedge compression fracture of T11-T12 vertebra, initial encounter for closed fracture (principal); M51.362 Other intervertebral disc degeneration, lumbar region with discogenic back pain and lower extremity pain; X58.XXXA Exposure to other specified factors, initial encounter; Y92.9 Unspecified place or not applicable; Y93.9 Activity, unspecified; Y99.9 Unspecified external cause status ==

== ENCOUNTER 2024-04-11 09:33 | Day surgery (SDC) | payer MEDICARE, MEDICAID ==
[~2024-04-11] VITALS: Ht 170.2 cm; Wt 64.7 kg
[~2024-04-11 09:33] MED LIST changes: +CITA40TA6 PO; +MAGN400T35 PO; +SENN-186 PO; +TRAZ-252 PO; +VITA100T91 PO; +[UNRECOGNIZED DRUG - OTHER] PO
[2024-04-11] MEDS ORDERED: LIDOCAINE 2% 100MG/5ML SDV (FOR ANES.) As Ordered ONE (12:36)
[2024-04-11] MEDS ORDERED: propofoL 200 MG/20 ML VIAL As Ordered ONE (12:36)
[2024-04-11 13:13] VITALS: BP 119/63; O2SAT 96
== END 2024-04-11 13:17 | disposition home or self-care (01) ==
LOC: M OPP 09:33
PROVIDERS: ATTEND Internal Medicine Gastroenterology
DX: D50.9 Iron deficiency anemia, unspecified (principal); I10 Essential (primary) hypertension; E78.5 Hyperlipidemia, unspecified; E10.40 Type 1 diabetes mellitus with diabetic neuropathy, unspecified; K21.9 Gastro-esophageal reflux disease without esophagitis; M19.90 Unspecified osteoarthritis, unspecified site; F41.9 Anxiety disorder, unspecified; F32.A Depression, unspecified; G43.909 Migraine, unspecified, not intractable, without status migrainosus; G47.30 Sleep apnea, unspecified; Z79.4 Long term (current) use of insulin; Z79.82 Long term (current) use of aspirin; Z79.84 Long term (current) use of oral hypoglycemic drugs; Z79.899 Other long term (current) drug therapy; Z80.3 Family history of malignant neoplasm of breast

== ENCOUNTER 2024-05-23 08:42 | Outpatient (RCR) | payer MEDICARE, MEDICAID | END 2024-05-27 | LOC: M PT 08:42 | PROVIDERS: ATTEND Student in an Organized Health Care Education/Training Program | DX: M54.9 Dorsalgia, unspecified (principal) ==

== ENCOUNTER → 2024-05-25 | Outpatient (REF) | payer MEDICARE, MEDICAID ==
[2024-05-25 13:07] LABS: APPEARANCE, URINE CLEAR (CLEAR); BACTERIA, URINE AUTO NEGATIVE (NEGATIVE); BILIRUBIN, URINE AUTO NEGATIVE (NEGATIVE); BLOOD, URINE BLOOD NEGATIVE (NEGATIVE); COLOR, URINE YELLOW (YELLOW); GLUCOSE, URINE (UA) AUTO NEGATIVE (NEGATIVE); KETONE, URINE AUTO NEGATIVE (NEGATIVE); LEUKOCYTE ESTERASE, URINE AUTO NEGATIVE (NEGATIVE); MUCUS, URINE SMALL (NEGATIVE); NITRITE, URINE AUTO NEGATIVE (NEGATIVE); PROTEIN, URINE AUTO NEGATIVE (NEGATIVE); RBC, URINE AUTO 1 /HPF (0-3); SPECIFIC GRAVITY URINE AUTO 1.016 (1.002-1.035); SQUAMOUS EPITHELIAL CELL UR AU 1 /HPF (0-6); UROBILINOGEN, URINE AUTO 0.2 mg/dL (0.0-2.0); WBC, URINE AUTO 1 /HPF (0-3)
== END ==
LOC: M SMT 12:27
PROVIDERS: ATTEND Physician Assistant
DX: N39.0 Urinary tract infection, site not specified (principal)

== ENCOUNTER → 2024-05-31 | Outpatient (CLI) | payer MEDICARE, MEDICAID ==
[2024-05-31 18:12] LABS: BASO # 0.1 10^3/uL (0.0-0.2); BASO % 0.7 % (0.0-1.0); EOS # 0.2 10^3/uL (0.0-0.5); EOS % 2.2 % (0.0-3.0); HEMATOCRIT 32.9 % (36.0-47.0); HEMOGLOBIN 10.3 g/dl (12.0-15.5); LYMPH % 27.2 % (24.0-44.0); MEAN CORPUSCULAR HEMOGLOBIN 28.8 pg (27.0-33.0); MEAN CORPUSCULAR HGB CONC 31.3 g/dl (32.0-36.5); MEAN CORPUSCULAR VOLUME 91.9 fl (80.0-96.0); MONO # 0.8 10^3/uL (0.0-0.8); MONO % 10.1 % (2.0-8.0); NEUTROPHILS # 4.4 10^3/uL (1.5-8.5); NEUTROPHILS % 59.4 % (36.0-66.0); PLATELET COUNT, AUTOMATED 333 10^3/uL (150-450); RED BLOOD COUNT 3.58 10^6/uL (4.00-5.40); WHITE BLOOD COUNT 7.4 10^3/uL (4.0-10.0)
[2024-05-31 18:26] LABS: HEMOGLOBIN A1c 8.7 % (4.0-6.0)
[2024-05-31 18:34] LABS: CHOLESTEROL RISK RATIO 2.94 (<5); HDL CHOLESTEROL 54.4 MG/DL (>40); LDL CHOLESTEROL 77.2 MG/DL (<100); NON-HDL-C 105.6 MG/DL
== END ==
LOC: M PLALAB 15:08
PROVIDERS: ATTEND Student in an Organized Health Care Education/Training Program
DX: E78.5 Hyperlipidemia, unspecified (principal); D50.8 Other iron deficiency anemias; E11.8 Type 2 diabetes mellitus with unspecified complications

== ENCOUNTER 2024-06-15 08:58 | Outpatient (RCR) | payer MEDICARE, MEDICAID ==
[2024-06-25] MEDS ORDERED: CEFD300CAP PO (12:03)
== END 2024-06-24 ==
LOC: M PT 08:58
PROVIDERS: ATTEND Student in an Organized Health Care Education/Training Program
DX: M54.9 Dorsalgia, unspecified (principal)
CPT/HCPCS: 97140; G0283

== ENCOUNTER → 2024-06-20 | Outpatient (CLI) | payer MEDICARE, MEDICAID | LOC: M RAD 09:27 | PROVIDERS: ATTEND Student in an Organized Health Care Education/Training Program | DX: M25.511 Pain in right shoulder (principal); M19.011 Primary osteoarthritis, right shoulder ==

== ENCOUNTER 2024-06-25 07:57 | Emergency (ER) | payer MEDICARE, MEDICAID ==
[~2024-06-25] VITALS: Ht 170.2 cm; Wt 66.9 kg
[2024-06-25] MEDS: KETOROLAC 30 MG/ML 1ML VIAL IV ONE (10:57)
[2024-06-25 11:14] LABS: BASO # 0.1 10^3/uL (0.0-0.2); BASO % 0.4 % (0.0-1.0); EOS # 0.1 10^3/uL (0.0-0.5); HEMATOCRIT 32.7 % (36.0-47.0); HEMOGLOBIN 10.2 g/dl (12.0-15.5); LYMPH # 1.5 10^3/uL (1.5-5.0); LYMPH % 13.8 % (24.0-44.0); MEAN CORPUSCULAR HEMOGLOBIN 28.6 pg (27.0-33.0); MEAN CORPUSCULAR HGB CONC 31.2 g/dl (32.0-36.5); MEAN CORPUSCULAR VOLUME 91.6 fl (80.0-96.0); MONO # 1.2 10^3/uL (0.0-0.8); MONO % 10.9 % (2.0-8.0); NEUTROPHILS # 8.2 10^3/uL (1.5-8.5); NEUTROPHILS % 73.5 % (36.0-66.0); PLATELET COUNT, AUTOMATED 291 10^3/uL (150-450); RED BLOOD COUNT 3.57 10^6/uL (4.00-5.40); WHITE BLOOD COUNT 11.2 10^3/uL (4.0-10.0)
[2024-06-25 11:28] LABS: KETONE, URINE AUTO RFX NEGATIVE (NEGATIVE); RBC, URINE AUTO RFX 6 /HPF (0-3); SQUAM EPITHELIAL CELL UR AURFX 0 /HPF (0-6)
[2024-06-25 11:31] LABS: LEUKOCYTE ESTERASE UR AUTO RFX 3+ (NEGATIVE); NITRITE, URINE AUTO RFX POSITIVE (NEGATIVE); WBC, URINE AUTO RFX TNTC /HPF (0-3)
[2024-06-25 11:43] LABS: LIPASE 23 U/L (12-53)
[2024-06-25 11:45] LABS: ALBUMIN 4.1 G/DL (3.2-5.2); ALKALINE PHOSPHATASE 86 U/L (35-104); ALT/SGPT 13 U/L (7.0-40); AST/SGOT 13 U/L (<34); BILIRUBIN,DIRECT 0.2 MG/DL (<0.4); BILIRUBIN,TOTAL 0.6 MG/DL (0.3-1.2); BLOOD UREA NITROGEN 10 MG/DL (9-23); CALCIUM LEVEL 9.3 MG/DL (8.3-10.6); CARBON DIOXIDE LEVEL 24 MMOL/L (20-31); CHLORIDE LEVEL 104 MMOL/L (98-107); CREATININE FOR GFR 0.65 MG/DL (0.55-1.30); GLOMERULAR FILTRATION RATE > 60.0 (>39); GLUCOSE, FASTING 136 MG/DL (74-106); POTASSIUM SERUM 4.1 MMOL/L (3.5-5.1); SODIUM LEVEL 141 MMOL/L (136-145)
[2024-06-25] MEDS ORDERED: CEFD300CAP PO (12:03)
[2024-06-25] MEDS: cefTRIAXone SOD 1 GM in DEXTROSE 5% (D5W) ADV/MINI-BAG 50 ML IV ONE (12:05)
[2024-06-25 12:35] VITALS: BP 132/62; TEMP 99.3; O2SAT 97
== END 2024-06-25 12:39 | disposition home or self-care (01) ==
LOC: M ED 07:57
DX: N39.0 Urinary tract infection, site not specified (principal); K76.0 Fatty (change of) liver, not elsewhere classified; F10.10 Alcohol abuse, uncomplicated; Z79.2 Long term (current) use of antibiotics; Z79.4 Long term (current) use of insulin; Z79.84 Long term (current) use of oral hypoglycemic drugs; Z79.899 Other long term (current) drug therapy
CPT/HCPCS: 74176; 80048; 80076; 81001; 83605; 83690; 85025; 87088; 87186; 96365; 96375; 99284; J0696; J1885

== ENCOUNTER 2024-07-21 07:52 | Day surgery (SDC) | payer MEDICARE, MEDICAID ==
[~2024-07-21] VITALS: Ht 170.2 cm; Wt 63.8 kg
[~2024-07-21 07:52] MED LIST changes: +CEFD300CAP PO; +FAMO40TA3 PO
[2024-07-21 10:12] VITALS: BP 112/60; O2SAT 98
== END 2024-07-21 10:14 | disposition home or self-care (01) ==
LOC: M OPP 07:52
PROVIDERS: ATTEND Internal Medicine Gastroenterology
DX: D12.0 Benign neoplasm of cecum (principal); K64.8 Other hemorrhoids; K59.00 Constipation, unspecified; K57.30 Diverticulosis of large intestine without perforation or abscess without bleeding; Z80.0 Family history of malignant neoplasm of digestive organs; Z79.4 Long term (current) use of insulin; Z79.84 Long term (current) use of oral hypoglycemic drugs; Z79.899 Other long term (current) drug therapy

== ENCOUNTER 2024-08-01 17:48 | Emergency (ER) | payer MEDICARE, MEDICAID ==
[~2024-08-01] VITALS: Ht 170.2 cm; Wt 64.7 kg
[2024-08-01 19:48] LABS: HEMATOCRIT 30.8 % (36.0-47.0); HEMOGLOBIN 9.9 g/dl (12.0-15.5); MEAN CORPUSCULAR HEMOGLOBIN 28.4 pg (27.0-33.0); MEAN CORPUSCULAR HGB CONC 32.1 g/dl (32.0-36.5); MEAN CORPUSCULAR VOLUME 88.3 fl (80.0-96.0); PLATELET COUNT, AUTOMATED 355 10^3/uL (150-450); RED BLOOD COUNT 3.49 10^6/uL (4.00-5.40); WHITE BLOOD COUNT 8.4 10^3/uL (4.0-10.0)
[2024-08-01 20:04] LABS: INR 0.88; PARTIAL THROMBOPLASTIN TIME 35.8 SECONDS (24.8-34.2); PROTHROMBIN TIME 12.3 SECONDS (12.5-14.5)
[2024-08-01 20:18] LABS: ALBUMIN 3.5 G/DL (3.2-5.2); BILIRUBIN,DIRECT 0.1 MG/DL (<0.4); BILIRUBIN,TOTAL 0.3 MG/DL (0.3-1.2); CALCIUM LEVEL 9.1 MG/DL (8.3-10.6); CREATININE FOR GFR 1.19 MG/DL (0.55-1.30); GLOMERULAR FILTRATION RATE 48.6 (>39); POTASSIUM SERUM 4.2 MMOL/L (3.5-5.1); TOTAL PROTEIN 6.9 G/DL (5.7-8.2)
[2024-08-01 20:20] LABS: ATYPICAL LYMPH 2 % (0-5); LYMPHOCYTES 26 % (16-44); MONOCYTES 6 % (0-5); NEUTROPHILS 64 % (28-66); PLATELET ESTIMATE NORMAL (NORMAL)
[2024-08-01 20:21] LABS: EOSINOPHILS 2 % (0-3); HYPOCHROMASIA 1+
[2024-08-02] MEDS: NS (Normal Saline) 0.9% 1,000 ML IV ONE (02:50)
[2024-08-02 03:32] LABS: KETONE, URINE AUTO RFX TRACE mg/dL (NEGATIVE); LEUKOCYTE ESTERASE UR AUTO RFX 2+ (NEGATIVE); MUCUS, URINE RFX SMALL (NEGATIVE); NITRITE, URINE AUTO RFX NEGATIVE (NEGATIVE); RBC, URINE AUTO RFX 7 /HPF (0-3); SQUAM EPITHELIAL CELL UR AURFX 3 /HPF (0-6); TRANSITIONAL EPITHELIAL AU RFX 1 /HPF; WBC, URINE AUTO RFX TNTC /HPF (0-3)
[2024-08-02] MEDS: cefTRIAXone SOD 2 GM in DEXTROSE 5% (D5W) ADV/MINI-BAG 50 ML IV ONE (05:51)
[2024-08-02] MEDS: KETOROLAC 30 MG/ML 1ML VIAL IV ONE (05:52)
[2024-08-02] MEDS: ACETAMINOPHEN *IV* 1,000 MG in IV 1 EA IV ONE (05:53)
[2024-08-02] MEDS ORDERED: CIPR-249 PO (06:54)
[2024-08-02 07:30] VITALS: BP 97/53; TEMP 97.9; O2SAT 97
== END 2024-08-02 07:40 | disposition home or self-care (01) ==
LOC: M ED 17:48 → EDBD 17:48 → M ED 08-02 07:40
DX: N10 Acute pyelonephritis (principal); E11.9 Type 2 diabetes mellitus without complications; I10 Essential (primary) hypertension; E78.5 Hyperlipidemia, unspecified; K21.9 Gastro-esophageal reflux disease without esophagitis; Z79.2 Long term (current) use of antibiotics; Z79.4 Long term (current) use of insulin; Z79.84 Long term (current) use of oral hypoglycemic drugs; Z79.899 Other long term (current) drug therapy
CPT/HCPCS: 74176; 80048; 80076; 81001; 82150; 83605; 83690; 85025; 85610; 85730; 87040; 87077; 87088; 87154; 87186; 87486; 87581; 87633; 87798; 96374; 96375; 99285; J0131; J0696; J1885

== ENCOUNTER → 2024-08-09 | Outpatient (CLI) | payer MEDICARE, MEDICAID ==
[2024-08-09 10:51] LABS: PERCENT SATURATION 15.2 % (13.2-45.0)
[2024-08-09 10:57] LABS: FERRITIN 16.7 NG/ML (7.3-270.7)
[2024-08-09 13:26] LABS: APPEARANCE, URINE CLEAR (CLEAR); BACTERIA, URINE AUTO NEGATIVE (NEGATIVE); BILIRUBIN, URINE AUTO NEGATIVE (NEGATIVE); BLOOD, URINE BLOOD NEGATIVE (NEGATIVE); COLOR, URINE YELLOW (YELLOW); GLUCOSE, URINE (UA) AUTO NEGATIVE (NEGATIVE); KETONE, URINE AUTO NEGATIVE (NEGATIVE); LEUKOCYTE ESTERASE, URINE AUTO NEGATIVE (NEGATIVE); MUCUS, URINE SMALL (NEGATIVE); NITRITE, URINE AUTO NEGATIVE (NEGATIVE); PROTEIN, URINE AUTO NEGATIVE (NEGATIVE); RBC, URINE AUTO 0 /HPF (0-3); SPECIFIC GRAVITY URINE AUTO 1.016 (1.002-1.035); SQUAMOUS EPITHELIAL CELL UR AU 3 /HPF (0-6); UROBILINOGEN, URINE AUTO 0.2 mg/dL (0.0-2.0); WBC, URINE AUTO 0 /HPF (0-3)
== END ==
LOC: M PLALAB 08:39
PROVIDERS: ATTEND Student in an Organized Health Care Education/Training Program
DX: N30.90 Cystitis, unspecified without hematuria (principal); D50.8 Other iron deficiency anemias

== ENCOUNTER → 2024-08-11 | Outpatient (REF) | payer MEDICARE, MEDICAID ==
[2024-08-11 15:22] LABS: HEMOGLOBIN A1c 8.6 % (4.0-6.0)
== END ==
LOC: M LABDRAWP 13:10
PROVIDERS: ATTEND Student in an Organized Health Care Education/Training Program
DX: E11.8 Type 2 diabetes mellitus with unspecified complications (principal)

== ENCOUNTER → 2024-08-26 | Outpatient (REF) | payer MEDICARE, MEDICAID ==
[~2024-08-26] MED LIST changes: -FLOM0.4C39 PO; +TAMS-18 PO
[2024-08-26 13:54] LABS: APPEARANCE, URINE HAZY (CLEAR); BACTERIA, URINE AUTO NEGATIVE (NEGATIVE); BILIRUBIN, URINE AUTO NEGATIVE (NEGATIVE); BLOOD, URINE BLOOD NEGATIVE (NEGATIVE); CALCIUM OXALATE CRYSTALS LARGE; COLOR, URINE YELLOW (YELLOW); GLUCOSE, URINE (UA) AUTO NEGATIVE (NEGATIVE); KETONE, URINE AUTO TRACE mg/dL (NEGATIVE); LEUKOCYTE ESTERASE, URINE AUTO 1+ (NEGATIVE); NITRITE, URINE AUTO NEGATIVE (NEGATIVE); PROTEIN, URINE AUTO NEGATIVE (NEGATIVE); RBC, URINE AUTO 1 /HPF (0-3); SPECIFIC GRAVITY URINE AUTO 1.021 (1.002-1.035); SQUAMOUS EPITHELIAL CELL UR AU 1 /HPF (0-6); UROBILINOGEN, URINE AUTO 0.2 mg/dL (0.0-2.0); WBC, URINE AUTO 4 /HPF (0-3)
== END ==
LOC: M SMT 13:06
PROVIDERS: ATTEND Urology
DX: N39.0 Urinary tract infection, site not specified (principal)

== ENCOUNTER → 2024-08-31 | Outpatient (CLI) | payer MEDICARE, MEDICAID | LOC: M PLAIMG 09:49 | PROVIDERS: ATTEND Student in an Organized Health Care Education/Training Program | DX: M54.50 Low back pain, unspecified (principal); E11.8 Type 2 diabetes mellitus with unspecified complications ==

== ENCOUNTER → 2024-11-23 | Outpatient (CLI) | payer MEDICARE, MEDICAID ==
[2024-11-23 11:10] LABS: CALCIUM LEVEL 9.4 MG/DL (8.3-10.6); CARBON DIOXIDE LEVEL 27 MMOL/L (20-31); CHLORIDE LEVEL 103 MMOL/L (98-107); CREATININE FOR GFR 0.68 MG/DL (0.55-1.30); GLOMERULAR FILTRATION RATE > 90.0 (>39); POTASSIUM SERUM 4.4 MMOL/L (3.5-5.1); SODIUM LEVEL 142 MMOL/L (136-145)
[2024-11-23 11:12] LABS: BASO # 0.1 10^3/uL (0.0-0.2); BASO % 1.2 % (0.0-1.0); EOS # 0.1 10^3/uL (0.0-0.5); EOS % 2.1 % (0.0-3.0); LYMPH # 1.5 10^3/uL (1.5-5.0); LYMPH % 30.1 % (24.0-44.0); MONO # 0.7 10^3/uL (0.0-0.8); MONO % 13.3 % (2.0-8.0); NEUTROPHILS # 2.7 10^3/uL (1.5-8.5); NEUTROPHILS % 53.1 % (36.0-66.0); PLATELET COUNT, AUTOMATED 279 10^3/uL (150-450)
[2024-11-23 12:11] LABS: ESTIMATED AVERAGE GLUCOSE 177.0 MG/DL (60-110)
== END ==
LOC: M PLAIMG 08:34
PROVIDERS: ATTEND Student in an Organized Health Care Education/Training Program
DX: I10 Essential (primary) hypertension (principal); M25.511 Pain in right shoulder; M54.12 Radiculopathy, cervical region; Z86.2 Personal history of diseases of the blood and blood-forming organs and certain disorders involving the immune mechanism; E11.8 Type 2 diabetes mellitus with unspecified complications

== ENCOUNTER → 2024-11-29 | Outpatient (CLI) | payer MEDICARE, MEDICAID | LOC: M CLY 07:46 | PROVIDERS: ATTEND Student in an Organized Health Care Education/Training Program | DX: M25.511 Pain in right shoulder (principal); M54.12 Radiculopathy, cervical region; S46.002D Unspecified injury of muscle(s) and tendon(s) of the rotator cuff of left shoulder, subsequent encounter; M80.00XD Age-related osteoporosis with current pathological fracture, unspecified site, subsequent encounter for fracture with routine healing ==

== ENCOUNTER → 2024-12-01 | Outpatient (CLI) | payer MEDICARE, MEDICAID | LOC: M PLARAD 13:14 | PROVIDERS: ATTEND Student in an Organized Health Care Education/Training Program | DX: S46.012A Strain of muscle(s) and tendon(s) of the rotator cuff of left shoulder, initial encounter (principal); S43.432A Superior glenoid labrum lesion of left shoulder, initial encounter; M67.814 Other specified disorders of tendon, left shoulder ==

== ENCOUNTER → 2024-12-14 | Outpatient (CLI) | payer MEDICARE, MEDICAID | LOC: M WHC 12:12 | PROVIDERS: ATTEND Student in an Organized Health Care Education/Training Program | DX: M80.00XD Age-related osteoporosis with current pathological fracture, unspecified site, subsequent encounter for fracture with routine healing (principal); M85.89 Other specified disorders of bone density and structure, multiple sites ==

== ENCOUNTER → 2025-02-08 | Outpatient (CLI) | payer MEDICARE, MEDICAID ==
[~2025-02-08] MED LIST changes: -DIPH50CA PO; +DIPH50CA31 PO; -IBUP-1022 PO; +IBUP600T42 PO; -NIRM1TAB14 PO; +NIRM1TAB16 PO
[2025-02-08 14:38] LABS: ESTIMATED AVERAGE GLUCOSE 163.0 MG/DL (60-110)
== END ==
LOC: M PLALAB 09:31
PROVIDERS: ATTEND Student in an Organized Health Care Education/Training Program
DX: E11.8 Type 2 diabetes mellitus with unspecified complications (principal)

== ENCOUNTER → 2025-03-07 | Outpatient (CLI) | payer MEDICARE, MEDICAID | LOC: M WHC 14:40 | PROVIDERS: ATTEND Student in an Organized Health Care Education/Training Program | DX: Z12.31 Encounter for screening mammogram for malignant neoplasm of breast (principal); R92.323 Mammographic fibroglandular density, bilateral breasts ==